=== PATIENT | female | born 1960 | race Caucasian/White ===

== ENCOUNTER → 2022-11-16 | Day surgery (SDC) | payer MEDICARE, OTHER ==
--- NOTE | 2022-11-24 08:56 | MM ---
Reason for Exam: Post Procedure Mammogram. Last screening mammogram was performed 1 month(s) ago. Patient History: Menarche at age 10. Breast cancer, right, age 38. Prior Study Comparison: 03/06/1998 Bilateral Screening Mammogram, [facility]. 03/17/1998 Right Special View Mammogram, [facility]. 10/22/1998 Right Special View Mammogram, [facility]. 10/30/1998 Right Diagnostic Ultrasound, [facility]. 06/22/1999 Right Special View Mammogram, [facility]. 04/08/2000 Bilateral Special View Mammogram, [facility]. 10/16/2018 Bilateral Diagnostic Mammogram, [facility]. 10/31/2018 Right Diagnostic Mammogram, [facility]. 10/15/2022 Bilateral Screening Mammogram, [facility]. Tissue Density: Right: There are scattered fibroglandular densities. Pathology Description: Location: 7 o'clock. Marker Left Behind. Needle Type: Mammotome Cores: 6 Skin Nicks: 1 Gauge: 13 The procedure of ultrasound guided core biopsy was explained to the patient. Benefits, alternatives, and risks were discussed. An informed consent was then obtained. A timeout was performed. The patient was placed in supine positioning for imaging and for the procedure. The overlying skin was prepped and draped in usual sterile fashion. Lidocaine was used as anesthetic into the skin and subcutaneous tissue up to area of concern in the right breast. A single small skin radha was made with surgical scalpel. Under ultrasound guidance, a 12-gauge vacuum assisted biopsy gun device was used to obtain 6 core samples of the 6:00 lesion. A biopsy clip was left in lesion. Hydromark core coil marker was placed. The second adjacent site at 7:00 position was biopsied. 4 core samples were obtained. A biopsy clip was left in lesion. Hydromark core or flight marker was placed. The patient tolerated the procedure well without any immediate complication. The patient was kept in the radiology department for short stay after the procedure and then discharged home in stable condition. Postprocedure mammogram: The patient was transferred to mammography for physician ordered post procedure mammogram for clip placement verification. Due to patient condition imaging of the clips was limited due to nondiagnostic. Impression: Successful ultrasound guided core biopsy of 2 areas of concern in the right breast, full pathology results to follow. Recommendations: 1. Recommendations are pending pathology results. Pathology Results: Result: Malignant, Invasive ductal carcinoma. A. RIGHT BREAST, SEVEN O'CLOCK, ULTRASOUND GUIDED NEEDLE CORE BIOPSY: Invasive poorly differentiated ductal carcinoma (Grade 3). See Surgical Pathology Cancer Case Summary. B. RIGHT BREAST, SIX O'CLOCK, ULTRASOUND GUIDED NEEDLE CORE BIOPSY: Invasive poorly differentiated ductal carcinoma (Grade 3) with associated scar and calcifications. See Surgical Pathology Cancer Case Summary. Pathology Description: Location: 6 o'clock. Marker Left Behind. Needle Type: Mammotome Cores: 4 Gauge: 13 Overall Assessment: Malignant Assessment: MG diagnostic mammo RT wo CAD - Right: Known biopsy proven malignancy, BI-RAD 6. Management: Surgical Consultation of the right breast. Electronically signed and approved by: John Gutiérrez D.O. Radiologis
== END ==
LOC: RADUSWWP 12:53
PROVIDERS: ATTEND Surgery
DX: D05.11 Intraductal carcinoma in situ of right breast (principal)
CPT/HCPCS: 88305; 88342; 88341; 77065; 19083; 19084; A4648

== ENCOUNTER → 2022-11-25 | Outpatient (CLI) | payer MEDICARE, OTHER ==
[2022-11-25 14:38] VITALS: BP 105/59; PULSE 79; RESP 18; TEMP 97.7
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
== END ==
LOC: WWCWWP 14:01
PROVIDERS: ATTEND Surgery
DX: C50.911 Malignant neoplasm of unspecified site of right female breast (principal); E11.9 Type 2 diabetes mellitus without complications; E03.9 Hypothyroidism, unspecified; M13.80 Other specified arthritis, unspecified site; E78.5 Hyperlipidemia, unspecified; E07.9 Disorder of thyroid, unspecified; Z79.4 Long term (current) use of insulin

== ENCOUNTER → 2022-12-06 | Outpatient (CLI) | payer MEDICARE, OTHER ==
--- NOTE | 2022-12-06 18:25 | CA ---
Transthoracic Echo Report Name: Nedra Trejo Age: 62 Gender: F : 1960 Exam Date: 12/06/2022 14:00 Exam Location: [facility] Ht (in): 59 Wt (lb): 143 Ordering Physician: Lilliana Ledbetter MD Attending/Referring Phys: Target Setter Savana Salas RDCS Procedure CPT: Indications: Z01.818 pre chemo Cardiac Hx: Technical Quality: Good Contrast 1: Total Dose (mL): Contrast 2: Total Dose (mL): MEASUREMENTS (Male / Female) Normal Values 2D ECHO LV Diastolic Diameter PLAX 3.9 cm 4.2 - 5.9 / 3.9 - 5.3 cm LV Systolic Diameter PLAX 2.1 cm IVS Diastolic Thickness 1.0 cm 0.6 - 1.0 / 0.6 - 0.9 cm LVPW Diastolic Thickness 0.8 cm 0.6 - 1.0 / 0.6 - 0.9 cm LV Relative Wall Thickness 0.5 RV Internal Dim ED PLAX 2.7 cm LA Systolic Diameter LX 2.9 cm 3.0 - 4.0 / 2.7 - 3.8 cm LA Volume 31.9 cm??? 18 - 58 / 22 - 52 cm??? M-MODE Aortic Root Diameter MM 3.3 cm MV E Point Septal Separation 0.5 cm AV Cusp Separation MM 1.9 cm DOPPLER AV Peak Velocity 141.1 cm/s AV Peak Gradient 8.0 mmHg MV Area PHT 2.2 cm??? Mitral E Point Velocity 99.8 cm/s Mitral A Point Velocity 119.8 cm/s Mitral E to A Ratio 0.8 MV Deceleration Time 341.8 ms MV E' Velocity 7.1 cm/s Mitral E to MV E' Ratio 14.1 TR Peak Velocity 245.4 cm/s TR Peak Gradient 24.1 mmHg Right Ventricular Systolic Press 27.9 mmHg FINDINGS Left Ventricle Left ventricular ejection fraction is estimated at 55-60 %. Left ventricular cavity size normal. Left ventricular wall thickness normal. Normal left ventricular wall motion. Right Ventricle Normal right ventricular size and function. Right ventricular systolic pressure within normal limits. Right Atrium Normal right atrial size. Left Atrium Normal left atrial size. Mitral Valve Structurally normal mitral valve. No mitral stenosis, regurgitation or prolapse. Aortic Valve Trileaflet aortic valve. No aortic valve stenosis. Mild aortic regurgitation. Tricuspid Valve No tricuspid stenosis, regurgitation or prolapse. Structurally normal tricuspid valve. Pulmonic Valve Structurally normal pulmonic valve. Trace to mild pulmonic regurgitation. Pericardium Normal pericardium. No pericardial effusion. Aorta Normal size aortic root and proximal ascending aorta. CONCLUSIONS Normal LV size and systolic function Previewed by: Dr. Roland Mederos MD (Electronically Signed) Final Date: 06 December 2022 18:24
== END | disposition home or self-care (01) ==
LOC: RADECHMAIN 13:14
PROVIDERS: ATTEND Internal Medicine
DX: Z01.818 Encounter for other preprocedural examination (principal)
CPT/HCPCS: 93306

== ENCOUNTER → 2022-12-11 | Outpatient (CLI) | payer MEDICARE, OTHER ==
--- NOTE | 2022-12-13 08:12 | PE ---
EXAMINATION TYPE: PET CT fusion skull to thigh DATE OF EXAM: 12/11/2022 COMPARISON: NONE HISTORY: Newly diagnosed right-sided breast cancer. History of right-sided breast cancer 24 years ag o. TECHNIQUE: Following the intravenous administration of 10.21 mCi of F-18 FDG, whole body images are performed from the skull base to the midthigh. Images are reviewed on the computer in the coronal, a xial, and sagittal planes. Reconstructed rotating images are created on independent workstation and reviewed on the computer. A localization and attenuation correction CT is performed in conjunction with the PET scan. Blood glucose level equals 131. SCAN: Initial Scan FINDINGS: SKULL BASE AND NECK: Abnormal hypermetabolic uptake right shoulder level is along a muscle, inflamma tory change is suspected. No additional areas of abnormal hypermetabolic uptake. CHEST, MEDIASTINUM, AND HILAR REGION: Abnormal hypermetabolic uptake in the posterior right breast me asures approximately 2.0 x 1.3 cm axial image 88, max SUV is 6.02 . Mild hypermetabolic uptake more p osterior level with Max SUV 4.36 appears to correspond to muscle along inferior aspect of the scapula . Surgical clips towards the right axilla. No abnormal hypermetabolic uptake at this level. Surgical clip in the upper left breast. Single slightly prominent 7 mm left axillary lymph node axial image 72 . Max SUV less than 2.5. No additional areas of abnormal hypermetabolic uptake. ABDOMEN AND PELVIS: Nonspecific bowel uptake. No areas of abnormal hypermetabolic uptake. Normal excr etion. OSSEOUS STRUCTURES: No areas of abnormal hypermetabolic uptake. OTHER CT: Cholecystectomy clips are present. A few sigmoid colonic diverticula. IMPRESSION: Abnormal hypermetabolic uptake in the right breast mass 6:00 position corresponds to rece nt biopsy proven neoplasm. Possible multicentric involvement on recent ultrasound less well seen on P ET/CT. No additional areas of suspicious abnormal hypermetabolic uptake to suggest adenopathy or meta static disease.
== END | disposition home or self-care (01) ==
LOC: RADPETMAIN 13:38
PROVIDERS: ATTEND Surgery
DX: C50.511 Malignant neoplasm of lower-outer quadrant of right female breast (principal); N63.15 Unspecified lump in the right breast, overlapping quadrants; Z85.3 Personal history of malignant neoplasm of breast
CPT/HCPCS: 78815; A9552

== ENCOUNTER → 2022-12-16 | Outpatient (CLI) | payer MEDICARE, OTHER ==
--- NOTE | 2022-12-16 13:32 | P.PN ---
Progress Note - Text Progress Note Date: 12/16/22 The patient's case was presented at tumor board and it was requested that a punch biopsy be done of the skin in the right breast. Patient with comes in today for punch biopsy of the skin of the right breast. The area was prepped using alcohol. 1% lidocaine was used to anesthetize the area of concern. A #3 punch was utilized to obtain a punch biopsy. The area was cauterized using a silver nitrate stick. A 3-0 nylon suture was then placed. The patient tolerated the procedure without difficulty. There was no bleeding at the end of the case.
[2022-12-16 13:49] VITALS: BP 99/63; PULSE 87; RESP 17; TEMP 97.9
== END ==
LOC: WWCWWP 13:15
PROVIDERS: ATTEND Surgery
DX: Z85.3 Personal history of malignant neoplasm of breast (principal)

== ENCOUNTER → 2023-07-15 | Outpatient (CLI) | payer MEDICARE, OTHER ==
--- NOTE | 2023-07-15 15:01 | USB ---
Reason for Exam: Follow-up at short interval from prior study. Patient History: Menarche at age 10. Breast cancer, right, age 38. Breast cancer, right, age 62. 11/16/2022, Malignant US biopsy breast VAD RT on the right side. 11/16/2022, US biopsy breast add'l VAD RT on the Right side. Technique: Method: Whole Breast Handheld. Prior Study Comparison: 10/31/2018 Right Diagnostic Mammogram, [facility]. 10/15/2022 Bilateral Screening Mammogram, [facility]. 11/16/2022 Right MG diagnostic mammo RT wo CAD, [facility]. Findings: The whole breast of the right breast, the axilla of the right breast and the retroareolar of the right breast were scanned. Technique utilized:US breast complete RT Image; Ultrasound imaging of: Area of concern, retroareolar region and axilla. Heterogenous mass measuring 2.6 x 2.2 x 1.8 cm with heterogenous appearance at 7:00 to 3 cm from the nipple may be mildly increased in size compared to prior. Overall Assessment: Known biopsy proven malignancy, BI-RAD 6 Management: Surgical Consultation of the right breast. A clinical breast exam by your physician is recommended on an annual basis and results should be correlated with mammographic findings. This exam should not preclude additional follow-up of suspicious palpable abnormalities. Results were given to the patient verbally at the time of exam. Electronically signed and approved by: Porter Edgar DO
== END | disposition home or self-care (01) ==
LOC: RADUSWWP 14:02
PROVIDERS: ATTEND Internal Medicine
DX: C50.511 Malignant neoplasm of lower-outer quadrant of right female breast (principal); Z85.3 Personal history of malignant neoplasm of breast

== ENCOUNTER → 2023-11-03 | Outpatient (CLI) | payer MEDICARE, OTHER ==
--- NOTE | 2023-11-07 14:57 | PE ---
EXAMINATION TYPE: PET CT fusion skull to thigh DATE OF EXAM: 11/03/2023 COMPARISON: Prior PET/CT December 11, 2022 HISTORY: Right sided Breast cancer originally diagnosed 1998 with recurrence 2022 completed chemothe rapy May 2023 TECHNIQUE: Following the intravenous administration of 11.49 mCi of F-18 FDG, whole body images are performed from the skull base to the midthigh. Images are reviewed on the computer in the coronal, a xial, and sagittal planes. Reconstructed rotating images are created on independent workstation and reviewed on the computer. A localization and attenuation correction CT is performed in conjunction with the PET scan. Blood glucose level equals 144. SCAN: Subsequent Scan FINDINGS: SKULL BASE AND NECK: No new areas of abnormal hypermetabolic uptake. CHEST, MEDIASTINUM, AND HILAR REGION: Skin thickening and trabeculation in the right breast redemonst rated. Persistent abnormal hypermetabolic uptake posteriorly outer aspect has max SUV of 8.35 on axia l image 90 increased from 6.02 on prior study. Scattered surgical clips redemonstrated. There is new large right pleural effusion with mass effect and mediastinal shift. There is new hyperm etabolic pleural-based nodularity at several levels throughout the right thorax. Most prominent findi ngs in the medial right lung base near axial image 114, max SUV is 18.82. There are hypermetabolic ri ght hilar and thoracic lymph nodes. For reference max SUV right hilar region axial image 92 is 11.77. For reference max SUV posterior to the tyler on axial image 82 is 11.46. ABDOMEN AND PELVIS: Nonspecific more prominent bowel uptake on current study. Normal excretion is red emonstrated. No areas of abnormal hypermetabolic uptake. OSSEOUS STRUCTURES: Healing and nonunion lateral right upper and mid rib fractures are redemonstrated . No convincing evidence of new abnormal hypermetabolic uptake in osseous structures. OTHER CT: Cholecystectomy clips are redemonstrated. IMPRESSION: Neoplastic progression or worsening disease with new large malignant right pleural effusi on and pleural-based nodularity as detailed above.
== END | disposition home or self-care (01) ==
LOC: RADPETMAIN 12:45
PROVIDERS: ATTEND Internal Medicine
DX: C50.511 Malignant neoplasm of lower-outer quadrant of right female breast (principal); J91.0 Malignant pleural effusion; J94.8 Other specified pleural conditions
CPT/HCPCS: 78815; A9552

== ENCOUNTER 2023-11-06 13:38 | Inpatient (IN) | payer MEDICARE, OTHER ==
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
--- NOTE | 2023-11-06 15:23 | XR ---
EXAMINATION TYPE: XR chest 2V DATE OF EXAM: 11/06/2023 COMPARISON: 10/28/2023 HISTORY: 63 year-old female shortness of breath, chest pain, difficulty breathing TECHNIQUE: AP and lateral views FINDINGS: New whiteout of the right hemithorax with apparent mass effect and slight leftward cardiac mediastina l shift. Surgical clips right axilla. Left lung and pleural space appear clear. IMPRESSION: New complete white out of the right hemithorax likely on the basis of extensive metastatic disease in volvement of the right pleural space with concurrent very large effusion and likely underlying lung c ollapse. The large effusion demonstrates some mass effect with slight leftward shift
[2023-11-06 15:38] LABS: ALT 16 U/L (4-34); AST 26 U/L (14-36); African American GFR (CKD) 35 (>60 ml/min/1.73 sqM); Albumin 3.5 g/dL (3.5-5.0); Alkaline Phosphatase 83 U/L (38-126); Anion Gap 12 mmol/L; Blood Urea Nitrogen 31 mg/dL (7-17); Calcium 9.4 mg/dL (8.4-10.2); Carbon Dioxide 16 mmol/L (22-30); Chloride 107 mmol/L (98-107); Glucose 198 mg/dL (74-99); Magnesium 1.3 mg/dL (1.6-2.3); Non-African American GFR(CKD) 30 (>60 ml/min/1.73 sqM); Potassium 5.2 mmol/L (3.5-5.1); Sodium 135 mmol/L (137-145); Total Bilirubin 0.3 mg/dL (0.2-1.3)
[2023-11-06 15:39] LABS: Basophils % (A) 0 %; Eosinophils # (A) 0.1 k/uL (0-0.7); Eosinophils % (A) 1 %; HCT 44.7 % (34.0-46.0); HGB 14.3 gm/dL (11.4-16.0); Lymphocytes # (A) 1.9 k/uL (1.0-4.8); Lymphocytes % (A) 15 %; MCV 96.9 fL (80.0-100.0); Mean Platelet Volume 7.9; Monocytes # (A) 0.8 k/uL (0-1.0); Monocytes % (A) 6 %; Neutrophils # (A) 10.2 k/uL (1.3-7.7); Neutrophils % (A) 78 %; Platelet Count 493 k/uL (150-450); RBC 4.61 m/uL (3.80-5.40); RDW 12.5 % (11.5-15.5); WBC 13.1 k/uL (3.8-10.6)
[2023-11-06] MEDS: MAGNESIUM SULFATE-D5W PMX 1 GM in DEXTROSE/WATER 1 100ML.BAG IVPB SCH (16:47)
[2023-11-06] MEDS: SODIUM CHLORIDE 0.9% 1,000 ML IV ONE (16:47)
[2023-11-06 17:52] LABS: INR 0.8 (<1.2); Partial Thromboplastin Time 25.1 sec (22.0-30.0); Prothrombin Time 9.5 sec (10.0-12.5)
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
[2023-11-06] MEDS ORDERED: DEXTROSE 50% SYRINGE 50 ML IVP PRN ×2 (21:11)
[2023-11-06] MEDS ORDERED: Magnesium Replacement Protocol 1 EACH MISC MISCELLANE PRN (21:13)
[2023-11-06] MEDS: SODIUM ZIRCONIUM CYCLOSILICATE 10 GM PACKET PO ONE (22:42)
[2023-11-06 23:29] LABS: Glucose,Whole Blood 152 mg/dL (70-110)
[2023-11-06] MEDS: ACETAMINOPHEN TAB 500 MG TAB PO PRN (23:33)
[2023-11-07] MEDS: LEVOTHYROXINE 50 MCG TAB PO SCH (06:01)
[2023-11-07] MEDS: INSULIN ASPART (NovoLOG) 100 UNIT/ML VIAL SQ SCH (07:38)
[2023-11-07 07:39] LABS: Glucose,Whole Blood 139 mg/dL (70-110)
[2023-11-07] MEDS: CHOLECALCIFEROL 25 MCG (1000 IU) TABLET PO SCH (07:39)
[2023-11-07] MEDS: MAGNESIUM OXIDE 400 MG TAB PO SCH (07:39)
[2023-11-07] MEDS: MULTIVITAMINS, THERA 1 EACH TAB PO SCH (07:40)
[2023-11-07 08:04] LABS: Basophils # (A) 0.1 k/uL (0-0.2); Basophils % (A) 0 %; Eosinophils # (A) 0.1 k/uL (0-0.7); Eosinophils % (A) 1 %; HCT 40.3 % (34.0-46.0); HGB 12.7 gm/dL (11.4-16.0); Lymphocytes # (A) 3.4 k/uL (1.0-4.8); Lymphocytes % (A) 23 %; MCHC 31.6 g/dL (31.0-37.0); Mean Platelet Volume 6.9; Monocytes # (A) 0.9 k/uL (0-1.0); Monocytes % (A) 6 %; Neutrophils # (A) 9.8 k/uL (1.3-7.7); Neutrophils % (A) 68 %; Platelet Count 502 k/uL (150-450); RBC 4.11 m/uL (3.80-5.40); RDW 12.1 % (11.5-15.5); WBC 14.5 k/uL (3.8-10.6)
[2023-11-07 08:13] LABS: African American GFR (CKD) 42 (>60 ml/min/1.73 sqM); Anion Gap 12 mmol/L; Blood Urea Nitrogen 31 mg/dL (7-17); Calcium 8.9 mg/dL (8.4-10.2); Carbon Dioxide 12 mmol/L (22-30); Chloride 107 mmol/L (98-107); Glucose 150 mg/dL (74-99); Magnesium 1.8 mg/dL (1.6-2.3); Non-African American GFR(CKD) 36 (>60 ml/min/1.73 sqM); Potassium 4.7 mmol/L (3.5-5.1); Sodium 131 mmol/L (137-145)
[2023-11-07] MEDS: MAGNESIUM SULFATE-D5W PMX 1 GM in DEXTROSE/WATER 1 100ML.BAG IVPB SCH (08:26)
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
[2023-11-07] MEDS: traMADol 50 MG TAB PO SCH (08:37)
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
[2023-11-07] MEDS ORDERED: traMADol 50 MG TAB PO SCH (09:00)
[2023-11-07 12:17] LABS: Glucose,Whole Blood 140 mg/dL (70-110)
[2023-11-07] MEDS: traMADol 50 MG TAB PO PRN (13:31)
[2023-11-07] MEDS: LACTATED RINGERS 1,000 ML IV SCH (13:41)
--- NOTE | 2023-11-07 14:13 | P.PN ---
Subjective Progress Note Date: 11/07/23 This is a 63-year-old female with history of current right-sided pleural effusion, felt to be malignant unless proven otherwise since the patient is known to have history of metastatic breast cancer, patient had recent thoracentesis done by Dr. Johnson on 10/27/2023, 2200 mL of turbid colored fluid was removed from the right pleural space, pleural effusion was exudative in nature with significantly elevated protein and significantly elevated LDH of 672 however the cytology came back negative and the pleural effusion. Nonetheless I believe the fluid is considered malignant unless proven otherwise for her thoracentesis was done basically less than 12 days ago, and the patient is now back in the ER with complete opacification of the right lung and contralateral shift of the trachea consistent with recurrent large right-sided pleural effusion, I saw the patient in the ER, discussed with the patient the option of thoracentesis also discussed the option of Pleurx catheter placement and I believe the second option is the best option at this point unless the patient develops worsening shortness of breath and needs immediate thoracentesis. Patient is agreeable to have consultation with thoracic surgery for possible Pleurx catheter placement in the next 24 to 48 hours. Otherwise patient could be considered for thoracentesis. Symptoms jackson, patient has some shortness of breath, some cough, no fever, no chills, no hemoptysis and no chest pain. 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 Patient presented again with a new diagnosis of invasive ductal carcinoma of the right breast and biopsy showed grade 3 invasive ductal carcinoma recently punch biopsy of skin lesion was done and it showed invasive carcinoma/breast cancer. Last PET scan on 12/12/2022 showed abnormal metabolic uptake in the right breast corresponding with breast cancer. The patient is seen today November 07, 2023 in follow-up in the emergency department. She is currently sitting up on a stretcher. Awake and alert in no acute distress. She is dyspneic with conversation. Dyspneic with minimal exertion. She is maintaining O2 saturations in the 90s on room air. She is afebrile. Hemodynamically stable. White count 14.5. Hemoglobin 12.7. Platelets 502. Sodium 131. Potassium 4.7. Bicarb 12. BUN 31. Creatinine 1.50. Glucose 150. She has lactated Ringer's at O. Objective - Vital Signs Vital signs: Vital Signs Temp 97.7 F 11/07/23 05:40 Pulse 110 H 11/07/23 13:32 Resp 20 11/07/23 13:32 BP 120/77 11/07/23 13:32 Pulse Ox 96 11/07/23 13:32 FiO2 Intake & Output 11/06/23 11/07/23 11/07/23 18:59 06:59 18:59 Weight 58.967 kg - Exam GENERAL EXAM: Alert, pleasant 63-year-old female, on room air, fairly comfortable in no apparent distress. HEAD: Normocephalic. EYES: Normal reaction of pupils, equal size. NOSE: Clear with pink turbinates. THROAT: No erythema or exudates. NECK: No masses, no JVD. CHEST: No chest wall deformity. LUNGS: Equal air entry with diminished breath sounds over the right lung. CVS: S1 and S2 normal with no audible murmur, regular rhythm. ABDOMEN: No hepatosplenomegaly, normal bowel sounds, no guarding or rigidity. SPINE: No scoliosis or deformity SKIN: No rashes CENTRAL NERVOUS SYSTEM: No focal deficits, tone is normal in all 4 extremities. EXTREMITIES: There is no peripheral edema. No clubbing, no cyanosis. Peripheral pulses are intact. - Labs CBC & Chem 7: 11/07/23 07:50 11/07/23 07:50 Labs: Abnormal Lab Results - Last 24 Hours (Table) 11/06/23 11/06/23 11/06/23 Range/Units 15:03 15:03 17:30 WBC 13.1 H (3.8-10.6) k/uL Plt Count 493 H (150-450) k/uL Neutrophils # 10.2 H (1.3-7.7) k/uL PT 9.5 L (10.0-12.5) sec Sodium 135 L (137-145) mmol/L Potassium 5.2 H (3.5-5.1) mmol/L Carbon Dioxide 16 L (22-30) mmol/L BUN 31 H (7-17) mg/dL Creatinine 1.76 H (0.52-1.04) mg/dL Glucose 198 H (74-99) mg/dL POC Glucose (mg/dL) (70-110) mg/dL Hemoglobin A1c (<=6.0) % Magnesium 1.3 L (1.6-2.3) mg/dL Total Protein 6.0 L (6.3-8.2) g/dL 11/06/23 11/07/23 11/07/23 Range/Units 23:27 07:38 07:50 WBC (3.8-10.6) k/uL Plt Count (150-450) k/uL Neutrophils # (1.3-7.7) k/uL PT (10.0-12.5) sec Sodium (137-145) mmol/L Potassium (3.5-5.1) mmol/L Carbon Dioxide (22-30) mmol/L BUN (7-17) mg/dL Creatinine (0.52-1.04) mg/dL Glucose (74-99) mg/dL POC Glucose (mg/dL) 152 H 139 H (70-110) mg/dL Hemoglobin A1c 6.2 H (<=6.0) % Magnesium (1.6-2.3) mg/dL Total Protein (6.3-8.2) g/dL 11/07/23 11/07/23 11/07/23 Range/Units 07:50 07:50 12:15 WBC 14.5 H (3.8-10.6) k/uL Plt Count 502 H (150-450) k/uL Neutrophils # 9.8 H (1.3-7.7) k/uL PT (10.0-12.5) sec Sodium 131 L (137-145) mmol/L Potassium (3.5-5.1) mmol/L Carbon Dioxide 12 L (22-30) mmol/L BUN 31 H (7-17) mg/dL Creatinine 1.50 H (0.52-1.04) mg/dL Glucose 150 H (74-99) mg/dL POC Glucose (mg/dL) 140 H (70-110) mg/dL Hemoglobin A1c (<=6.0) % Magnesium (1.6-2.3) mg/dL Total Protein (6.3-8.2) g/dL Assessment and Plan Assessment: Recurrent right-sided exudative pleural effusion, considered malignant unless proven otherwise, considering the clinical history and this is most likely secondary to metastatic breast cancer Shortness of breath secondary to above however the patient is on room air History of invasive ductal carcinoma of the breast initial diagnosis back in 1998 patient had subsequent tumor recurrence and punch biopsy of the skin confirming invasive ductal carcinoma of the breast Type 2 diabetes maintained on insulin Benign essential hypertension history of hypothyroidism Dyslipidemia Plan: The patient was seen and evaluated Chest x-ray and labs reviewed Currently stable and on room air Plan is for Pleurx catheter placement tomorrow We will continue to follow I have personally seen and examined the patient, performed the documentation and the assessment and plan as written. Number of minutes spent on the visit: 10.
[2023-11-07 16:48] LABS: Glucose,Whole Blood 151 mg/dL (70-110)
[2023-11-07] MEDS: PRAVASTATIN SODIUM 40 MG TAB PO SCH (16:57)
[2023-11-07 20:59] LABS: Glucose,Whole Blood 281 mg/dL (70-110)
[2023-11-07] MEDS: INSULIN DETEMIR (LEVEMIR) 100 UNIT/ML SYR SQ SCH (21:33)
[2023-11-08] MEDS: ZOLPIDEM 5 MG TAB PO PRN (01:19)
[2023-11-08 05:53] LABS: Glucose,Whole Blood 121 mg/dL (70-110)
[2023-11-08] MEDS ORDERED: HYDROmorphone 0.5 MG/0.5 ML SYRINGE IVP PRN (07:00)
[2023-11-08 08:17] LABS: HCT 38.3 % (34.0-46.0); HGB 12.2 gm/dL (11.4-16.0); MCH 31.1 pg (25.0-35.0); MCHC 31.8 g/dL (31.0-37.0); Mean Platelet Volume 6.7; Platelet Count 452 k/uL (150-450); RDW 12.1 % (11.5-15.5); WBC 10.2 k/uL (3.8-10.6)
[2023-11-08 08:32] LABS: ALT 15 U/L (4-34); AST 23 U/L (14-36); African American GFR (CKD) 55 (>60 ml/min/1.73 sqM); Albumin 2.9 g/dL (3.5-5.0); Alkaline Phosphatase 73 U/L (38-126); Anion Gap 9 mmol/L; Blood Urea Nitrogen 29 mg/dL (7-17); Calcium 8.8 mg/dL (8.4-10.2); Carbon Dioxide 15 mmol/L (22-30); Chloride 105 mmol/L (98-107); Glucose 128 mg/dL (74-99); Non-African American GFR(CKD) 48 (>60 ml/min/1.73 sqM); Potassium 4.9 mmol/L (3.5-5.1); Sodium 129 mmol/L (137-145); Total Bilirubin 0.3 mg/dL (0.2-1.3); Total Protein 5.2 g/dL (6.3-8.2)
--- NOTE | 2023-11-08 08:35 | P.PN ---
Subjective Progress Note Date: 11/08/23 Principal diagnosis: Shortness of breath This is a 63-year-old female with a known history of metastatic breast cancer who recently had a thoracentesis done by Dr. Johnson on 10/27/2023 with 2200 mL of fluid removed from the right pleural space. Patient had increasing shortness of breath and presented to the emergency room for evaluation. Chest x-ray showed a right hemothorax with a large effusion on admission. Pulmonology and cardiothoracic surgeon have seen and evaluated patient who are recommending a Pleurx catheter be placed. Patient is currently n.p.o. and awaiting catheter placement today. She reports pain is controlled today and she was able to sleep last night. Heart rate remains in the low 100s. Objective - Vital Signs Vital signs: Vital Signs Temp 98.2 F 11/08/23 07:37 Pulse 104 H 11/08/23 07:38 Resp 15 11/08/23 07:38 BP 103/78 11/08/23 07:37 Pulse Ox 93 L 11/08/23 07:37 FiO2 Intake & Output 11/07/23 11/08/23 11/08/23 18:59 06:59 18:59 Weight 58.967 kg Other: Voiding Method Toilet Toilet - Constitutional General appearance: Present: cooperative, no acute distress - EENT Eyes: Present: PERRLA - Neck Neck: Present: normal ROM. Absent: lymphadenopathy, rigidity - Respiratory Respiratory: bilateral: diminished - Cardiovascular Rhythm: regular Heart sounds: normal: S1, S2 - Gastrointestinal General gastrointestinal: Present: soft. Absent: tenderness - Integumentary Integumentary: Present: normal, normal turgor - Psychiatric Psychiatric: Present: A&O x's 3, appropriate affect, intact judgment & insight - Labs CBC & Chem 7: 11/08/23 07:47 11/07/23 07:50 Labs: Abnormal Lab Results - Last 24 Hours (Table) 11/07/23 11/07/23 11/07/23 Range/Units 07:50 12:15 16:46 Plt Count (150-450) k/uL POC Glucose (mg/dL) 140 H 151 H (70-110) mg/dL Hemoglobin A1c 6.2 H (<=6.0) % 11/07/23 11/08/23 11/08/23 Range/Units 20:55 05:52 07:47 Plt Count 452 H (150-450) k/uL POC Glucose (mg/dL) 281 H 121 H (70-110) mg/dL Hemoglobin A1c (<=6.0) % Assessment and Plan (1) Pleural effusion Current Visit: Yes Status: Acute Code(s): J90 - PLEURAL EFFUSION, NOT EL SEWHERE CLASSIFIED SNOMED Code(s): 23463012 (2) Diabetes Current Visit: No Status: Acute Code(s): E11.9 - TYPE 2 DIABETES MELLITUS WITHOUT COMPLICATIONS SNOMED Code(s): 66332713 (3) Hypothyroidism (acquired) Current Visit: No Status: Acute Code(s): E03.9 - HYPOTHYROIDISM, UNSPECIFIED SNOMED Code(s): 734051702 (4) Hypomagnesemia Current Visit: Yes Status: Acute Code(s): E83.42 - HYPOMAGNESEMIA SNOMED Code(s): 509912903 (5) Hypertension Current Visit: Yes Status: Acute Code(s): I10 - ESSENTIAL (PRIMARY) HYPERTENSION SNOMED Code(s): 75089854 (6) Hyperlipemia Current Visit: Yes Status: Acute Code(s): E78.5 - HYPERLIPIDEMIA, UNSPECIFIED SNOMED Code(s): 39394315 (7) History of breast cancer Current Visit: Yes Status: Acute Code(s): Z85.3 - PERSONAL HISTORY OF MALIGNANT NEOPLASM OF BREAST SNOMED Code(s): 407217350 Plan: Await placement of Pleurx catheter CBC and CMP in the morning Patient seen and evaluated by nurse practitioner, physician in agreement with plan
[2023-11-08] MEDS: LACTATED RINGERS 1,000 ML IV SCH (10:04)
[2023-11-08 11:31] LABS: Glucose,Whole Blood 132 mg/dL (70-110)
--- NOTE | 2023-11-08 12:48 | P.PN ---
Subjective Progress Note Date: 11/08/23 Principal diagnosis: Shortness of breath. This is a 63-year-old female with history of current right-sided pleural effusion, felt to be malignant unless proven otherwise since the patient is known to have history of metastatic breast cancer, patient had recent thoracentesis done by Dr. Johnson on 10/27/2023, 2200 mL of turbid colored fluid was removed from the right pleural space, pleural effusion was exudative in nature with significantly elevated protein and significantly elevated LDH of 672 however the cytology came back negative and the pleural effusion. Nonetheless I believe the fluid is considered malignant unless proven otherwise for her thoracentesis was done basically less than 12 days ago, and the patient is now back in the ER with complete opacification of the right lung and contralateral shift of the trachea consistent with recurrent large right-sided pleural effusion, I saw the patient in the ER, discussed with the patient the option of thoracentesis also discussed the option of Pleurx catheter placement and I believe the second option is the best option at this point unless the patient develops worsening shortness of breath and needs immediate thoracentesis. Patient is agreeable to have consultation with thoracic surgery for possible Pleurx catheter placement in the next 24 to 48 hours. Otherwise patient could be considered for thoracentesis. Symptoms jackson, patient has some shortness of breath, some cough, no fever, no chills, no hemoptysis and no chest pain. 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 Patient presented again with a new diagnosis of invasive ductal carcinoma of the right breast and biopsy showed grade 3 invasive ductal carcinoma recently punch biopsy of skin lesion was done and it showed invasive carcinoma/breast cancer. Last PET scan on 12/12/2022 showed abnormal metabolic uptake in the right breast corresponding with breast cancer. The patient is seen today November 07, 2023 in follow-up in the emergency department. She is currently sitting up on a stretcher. Awake and alert in no acute distress. She is dyspneic with conversation. Dyspneic with minimal exertion. She is maintaining O2 saturations in the 90s on room air. She is afebrile. Hemodynamically stable. White count 14.5. Hemoglobin 12.7. Platelets 502. Sodium 131. Potassium 4.7. Bicarb 12. BUN 31. Creatinine 1.50. Glucose 150. She has lactated Ringer's at [facility]. Progress note dated November 08, 2023. Patient is seen today in room 366. The patient was seen a couple days ago, with shortness of breath in the emergency department, and the patient is apparently scheduled to have a Pleurx catheter placed on the right side later today. Dr. Anthony is going to do the procedure. The patient is on 2 L of oxygen by nasal cannula. She is not having any respiratory distress or difficulty. She is receiving lactated Ringer's at 20 cc an hour. Current laboratory data is white count 10.2, hemoglobin 12.2, hematocrit 38.3, and a platelet count of 452,000. Sodium 129, potassium 4.9, chlorides 105, CO2 15, anion gap 9, BUN 29, creatinine 1.20. Albumin is 2.9. Objective - Vital Signs Vital signs: Vital Signs Temp 98.2 F 11/08/23 07:37 Pulse 113 H 11/08/23 11:36 Resp 16 11/08/23 11:36 BP 115/68 11/08/23 11:36 Pulse Ox 96 11/08/23 11:36 FiO2 21 11/08/23 08:31 Intake & Output 11/07/23 11/08/23 11/08/23 18:59 06:59 18:59 Weight 58.967 kg Other: Voiding Method Toilet Toilet # Voids 1 - Exam No acute distress, oriented 3. No respiratory distress. The patient is lying on her right side. The patient is currently on 2 L. HEENT examination is grossly unremarkable. Mucous membranes are moist. No oral lesions. Neck supple. Full range of motion. No adenopathy thyromegaly or neck vein distention. Cardiovascular examination reveals regular rhythm rate. S1-S2 normal. No S3 or S4. No discernible murmur noted. Heart rate 100 bpm. Heart sounds are distant. Lungs reveal diminished breath sounds on the right. No wheezes rhonchi or crackles. Left lung is clear. Saturations are 96% on 2 L. Abdomen soft bowel sounds are heard. No masses or tenderness. Extremities are intact. No cyanosis clubbing or edema. Skin is without rash or lesion. Neurologic examination is brief but nonfocal. - Labs CBC & Chem 7: 11/08/23 07:47 11/08/23 07:47 Labs: Abnormal Lab Results - Last 24 Hours (Table) 11/07/23 11/07/23 11/08/23 Range/Units 16:46 20:55 05:52 Plt Count (150-450) k/uL Sodium (137-145) mmol/L Carbon Dioxide (22-30) mmol/L BUN (7-17) mg/dL Creatinine (0.52-1.04) mg/dL Glucose (74-99) mg/dL POC Glucose (mg/dL) 151 H 281 H 121 H (70-110) mg/dL Total Protein (6.3-8.2) g/dL Albumin (3.5-5.0) g/dL 11/08/23 11/08/23 11/08/23 Range/Units 07:47 07:47 11:30 Plt Count 452 H (150-450) k/uL Sodium 129 L (137-145) mmol/L Carbon Dioxide 15 L (22-30) mmol/L BUN 29 H (7-17) mg/dL Creatinine 1.20 H (0.52-1.04) mg/dL Glucose 128 H (74-99) mg/dL POC Glucose (mg/dL) 132 H (70-110) mg/dL Total Protein 5.2 L (6.3-8.2) g/dL Albumin 2.9 L (3.5-5.0) g/dL Assessment and Plan Assessment: Recurrent right-sided exudative pleural effusion, considered malignant unless proven otherwise, considering the clinical history and this is most likely secondary to metastatic breast cancer. Shortness of breath secondary to above. History of invasive ductal carcinoma of the breast initial diagnosis back in 1998 patient had subsequent tumor recurrence and punch biopsy of the skin confirming invasive ductal carcinoma of the breast. Type 2 diabetes maintained on insulin. Benign essential hypertension. History of hypothyroidism. Dyslipidemia. Plan: Plan dated November 08, 2023. The patient was seen by cardiothoracic surgery. The plan is to place a Pleurx catheter on the right side later today. Currently, the patient is on 2 L of oxygen. She is getting lactated Ringer's at 20 cc an hour. Labs, x-rays, and medications are reviewed. The patient is overall prognosis remains guarded. We will continue to follow the patient, and make recommendations along the way. Time with Patient: Less than 30
[2023-11-08 13:36] LABS: Glucose,Whole Blood 129 mg/dL (70-110)
[2023-11-08] MEDS: ONDANSETRON 4 MG/2 ML VIAL IVP ONE ×2 (13:39→16:50)
[2023-11-08] MEDS ORDERED: MIDAZOLAM 2 MG/2 ML VIAL ONE (14:28)
[2023-11-08] MEDS ORDERED: fentaNYL (PF) 50 MCG/ML 2 ML AMP ONE (14:28)
[2023-11-08] MEDS ORDERED: PROPOFOL 10 MG/ML 20 ML VIAL IV ONE (14:28)
[2023-11-08] MEDS ORDERED: KETAMINE HCL IN 0.9 % NACL 50 MG/5 ML SYRINGE ONE (14:28)
[2023-11-08] MEDS: SODIUM CHLORIDE 0.9% 50 ML with ceFAZolin 1,000 MG IV ONE (14:35)
[2023-11-08] MEDS: LIDOCAINE 1% INJ 10MG/ML (10 ML MDV) SQ ONE (14:48)
--- NOTE | 2023-11-08 15:26 | P.OP ---
Date of Procedure: 11/08/23 Preoperative Diagnosis: recurrent pleural effusion Postoperative Diagnosis: same Procedure(s) Performed: R sided pleurX insertion under flouroscopic guidance Implants: R PleurX Anesthesia: local Surgeon: Zi Anthony Estimated Blood Loss (ml): 10 Pathology: other (cytology from pleural fluid) Condition: stable Disposition: PACU Indications for Procedure: This patient is a 63 year-old F with breast cancer who was found to have a recurrent large right sided pleural effusion. She underwent multiple thoracentesis procedure and even though the cytology has been negative, there is concern for malignancy causing her recurrent effusion. PleurX was recommended. Operative Findings: 2500cc straw colored fluid removed. Description of Procedure: Patient was brought back to the operating room and sedated. Bump was placed under her right chest which was prepped and draped. Antibiotics were given. Needle was inserted with good return of serous fluid. This area was anethetized as well as an area anteriorly near the costal margin. Guidewire was advanced and confirmed with fluoroscopy. The catheter was tunneled from anterior to posterior and inserted via the peel away sheath. 2500cc of straw colored fluid was evacuated and sterile dressing applied.
[2023-11-08 16:09] LABS: Glucose,Whole Blood 114 mg/dL (70-110)
[2023-11-08 16:47] LABS: Glucose,Whole Blood 142 mg/dL (70-110)
[2023-11-08] MEDS: DEXAMETHASONE SOD PHOSPHATE 4 MG/ML 1 ML VIAL IV ONE (16:50)
--- NOTE | 2023-11-08 19:04 | FL ---
EXAMINATION TYPE: FL guidance operating room DATE OF EXAM: 11/08/2023 3:24 PM CLINICAL INDICATION:Female, 63 years old with history of PLEURX CATHETER; [facility] COMPARISON: None TECHNIQUE: FL guidance operating room Portable AP radiograph of the chest.. FINDINGS: Fluoroscopic spot view was obtained intraoperatively and saved to PACS. Fluoroscopy time 16.9 second s cumulative dose 2.09 milligray. Please refer to operative note for full details. IMPRESSION: Documentation of fluoroscopy.
[2023-11-08 20:42] LABS: Glucose,Whole Blood 156 mg/dL (70-110)
[2023-11-09 06:11] LABS: Glucose,Whole Blood 128 mg/dL (70-110)
--- NOTE | 2023-11-09 08:18 | P.PN ---
Subjective Progress Note Date: 11/09/23 Principal diagnosis: Status post Pleurx The patient is a 63-year-old white female send admitted for recurrent pleural effusion. History of remote breast cancer in 1998. She states significant fatigue. No chest pain cough is noted. Minor tachycardia today. She states no palpitations or anginal equivalent pain. No nausea, vomiting or diarrhea. Objective - Vital Signs Vital signs: Vital Signs Temp 98.1 F 11/08/23 19:51 Pulse 106 H 11/09/23 05:04 Resp 16 11/09/23 05:04 BP 97/60 11/09/23 05:04 Pulse Ox 92 L 11/09/23 05:04 FiO2 21 11/08/23 08:31 Intake & Output 11/08/23 11/09/23 11/09/23 18:59 06:59 18:59 Intake Total 990 120 Output Total 2 Balance 988 120 Intake: IV 750 Oral 240 120 Output: Estimated Blood Loss 2 Other: Voiding Method Toilet Toilet # Voids 1 1 - Constitutional General appearance: Present: average body habitus, no acute distress - EENT Eyes: Absent: abnormal pupil - Neck Neck: Absent: lymphadenopathy - Respiratory Respiratory: right: diminished - Cardiovascular Heart rate: 110 Rhythm: regular Abnormal Heart Sounds: Absent: systolic murmur, S3 Gallop - Gastrointestinal General gastrointestinal: Present: soft. Absent: tenderness - Labs CBC & Chem 7: 11/08/23 07:47 11/08/23 07:47 Labs: Abnormal Lab Results - Last 24 Hours (Table) 11/08/23 11/08/23 11/08/23 Range/Units 07:47 07:47 11:30 Plt Count 452 H (150-450) k/uL Sodium 129 L (137-145) mmol/L Carbon Dioxide 15 L (22-30) mmol/L BUN 29 H (7-17) mg/dL Creatinine 1.20 H (0.52-1.04) mg/dL Glucose 128 H (74-99) mg/dL POC Glucose (mg/dL) 132 H (70-110) mg/dL Total Protein 5.2 L (6.3-8.2) g/dL Albumin 2.9 L (3.5-5.0) g/dL 03/12/24 03/12/24 03/12/24 Range/Units 13:33 16:07 16:45 Plt Count (150-450) k/uL Sodium (137-145) mmol/L Carbon Dioxide (22-30) mmol/L BUN (7-17) mg/dL Creatinine (0.52-1.04) mg/dL Glucose (74-99) mg/dL POC Glucose (mg/dL) 129 H 114 H 142 H (70-110) mg/dL Total Protein (6.3-8.2) g/dL Albumin (3.5-5.0) g/dL 11/08/23 11/09/23 Range/Units 20:39 06:10 Plt Count (150-450) k/uL Sodium (137-145) mmol/L Carbon Dioxide (22-30) mmol/L BUN (7-17) mg/dL Creatinine (0.52-1.04) mg/dL Glucose (74-99) mg/dL POC Glucose (mg/dL) 156 H 128 H (70-110) mg/dL Total Protein (6.3-8.2) g/dL Albumin (3.5-5.0) g/dL Assessment and Plan (1) History of breast cancer Current Visit: Yes Status: Acute Code(s): Z85.3 - PERSONAL HISTORY OF MALIGNANT NEOPLASM OF BREAST SNOMED Code(s): 077206695 (2) Hyperlipemia Current Visit: Yes Status: Acute Code(s): E78.5 - HYPERLIPIDEMIA, UNSPECIFIED SNOMED Code(s): 57268007 (3) Hypertension Current Visit: Yes Status: Acute Code(s): I10 - ESSENTIAL (PRIMARY) HYPERTENSION SNOMED Code(s): 36887338 (4) Hypomagnesemia Current Visit: Yes Status: Acute Code(s): E83.42 - HYPOMAGNESEMIA SNOMED Code(s): 147934885 (5) Pleural effusion Current Visit: Yes Status: Acute Code(s): J90 - PLEURAL EFFUSION, NOT ELSEWHERE CLASSIFIED SNOMED Code(s): 92648775 Plan: Improving. Will DC with Pleurx catheter. Check CBC CMP and magnesium in the a.m. due to electrolyte and KARLY. Anticipate discharge in a.m. Prognosis is guarded
[2023-11-09 08:47] LABS: HCT 36.5 % (34.0-46.0); HGB 12.1 gm/dL (11.4-16.0); MCH 31.9 pg (25.0-35.0); MCHC 33.2 g/dL (31.0-37.0); MCV 96.2 fL (80.0-100.0); Mean Platelet Volume 7.2; Platelet Count 408 k/uL (150-450); RBC 3.79 m/uL (3.80-5.40); RDW 12.1 % (11.5-15.5); WBC 10.4 k/uL (3.8-10.6)
[2023-11-09 09:02] LABS: ALT 13 U/L (4-34); AST 22 U/L (14-36); African American GFR (CKD) 67 (>60 ml/min/1.73 sqM); Albumin 2.5 g/dL (3.5-5.0); Alkaline Phosphatase 73 U/L (38-126); Anion Gap 7 mmol/L; Blood Urea Nitrogen 24 mg/dL (7-17); Calcium 8.4 mg/dL (8.4-10.2); Carbon Dioxide 20 mmol/L (22-30); Chloride 103 mmol/L (98-107); Glucose 161 mg/dL (74-99); Non-African American GFR(CKD) 58 (>60 ml/min/1.73 sqM); Potassium 4.9 mmol/L (3.5-5.1); Sodium 130 mmol/L (137-145); Total Bilirubin 0.3 mg/dL (0.2-1.3); Total Protein 4.8 g/dL (6.3-8.2)
--- NOTE | 2023-11-09 11:12 | P.PN ---
Subjective Progress Note Date: 11/09/23 Principal diagnosis: Shortness of breath. This is a 63-year-old female with history of current right-sided pleural effusion, felt to be malignant unless proven otherwise since the patient is known to have history of metastatic breast cancer, patient had recent thoracentesis done by Dr. Johnson on 10/27/2023, 2200 mL of turbid colored fluid was removed from the right pleural space, pleural effusion was exudative in nature with significantly elevated protein and significantly elevated LDH of 672 however the cytology came back negative and the pleural effusion. Nonetheless I believe the fluid is considered malignant unless proven otherwise for her thoracentesis was done basically less than 12 days ago, and the patient is now back in the ER with complete opacification of the right lung and contralateral shift of the trachea consistent with recurrent large right-sided pleural effusion, I saw the patient in the ER, discussed with the patient the option of thoracentesis also discussed the option of Pleurx catheter placement and I believe the second option is the best option at this point unless the patient develops worsening shortness of breath and needs immediate thoracentesis. Patient is agreeable to have consultation with thoracic surgery for possible Pleurx catheter placement in the next 24 to 48 hours. Otherwise patient could be considered for thoracentesis. Symptoms jackson, patient has some shortness of breath, some cough, no fever, no chills, no hemoptysis and no chest pain. 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 Patient presented again with a new diagnosis of invasive ductal carcinoma of the right breast and biopsy showed grade 3 invasive ductal carcinoma recently punch biopsy of skin lesion was done and it showed invasive carcinoma/breast cancer. Last PET scan on 12/12/2022 showed abnormal metabolic uptake in the right breast corresponding with breast cancer. The patient is seen today November 07, 2023 in follow-up in the emergency department. She is currently sitting up on a stretcher. Awake and alert in no acute distress. She is dyspneic with conversation. Dyspneic with minimal exertion. She is maintaining O2 saturations in the 90s on room air. She is afebrile. Hemodynamically stable. White count 14.5. Hemoglobin 12.7. Platelets 502. Sodium 131. Potassium 4.7. Bicarb 12. BUN 31. Creatinine 1.50. Glucose 150. She has lactated Ringer's at [facility]. Progress note dated November 08, 2023. Patient is seen today in room 366. The patient was seen a couple days ago, with shortness of breath in the emergency department, and the patient is apparently scheduled to have a Pleurx catheter placed on the right side later today. Dr. Anthony is going to do the procedure. The patient is on 2 L of oxygen by nasal cannula. She is not having any respiratory distress or difficulty. She is receiving lactated Ringer's at 20 cc an hour. Current laboratory data is white count 10.2, hemoglobin 12.2, hematocrit 38.3, and a platelet count of 452,000. Sodium 129, potassium 4.9, chlorides 105, CO2 15, anion gap 9, BUN 29, creatinine 1.20. Albumin is 2.9. Progress note dated November 09, 2023. 63-year-old female seen today in room 366. The patient had a Pleurx catheter placed yesterday by Dr. Anthony. 2.5 L of fluid was drained from the right p leural space. The fluid was sent for cytologic evaluation. Her previous cytologies have been negative. The fluid has been an exudate in the past. Currently, she is on 2 L of oxygen. She is resting comfortably. Labs today include a white count of 10.4, hemoglobin 12.1, hematocrit 36.5, and a platelet count of 408,000. Sodium 130, potassium 4.9, chlorides 103, CO2 20, BUN 24, creatinine 1.02. The albumin is 2.5. Objective - Vital Signs Vital signs: Vital Signs Temp 98.1 F 11/09/23 08:00 Pulse 99 11/09/23 08:00 Resp 18 11/09/23 08:00 BP 94/59 11/09/23 08:00 Pulse Ox 93 L 11/09/23 08:51 FiO2 21 11/08/23 08:31 Intake & Output 11/08/23 11/09/23 11/09/23 18:59 06:59 18:59 Intake Total 990 120 180 Output Total 2 Balance 988 120 180 Intake: IV 750 Oral 240 120 180 Output: Estimated Blood Loss 2 Other: Voiding Method Toilet Toilet Toilet # Voids 1 1 - Exam No acute distress, oriented 3. No respiratory distress. The patient is lying on her right side. The patient is currently on 2 L. HEENT examination is grossly unremarkable. Mucous membranes are moist. No oral lesions. Neck supple. Full range of motion. No adenopathy thyromegaly or neck vein distention. Cardiovascular examination reveals regular rhythm rate. S1-S2 normal. No S3 or S4. No discernible murmur noted. Heart rate 97 bpm. Heart sounds are distant. Lungs reveal diminished breath sounds on the right, which are somewhat improved, following Pleurx catheter placement. No wheezes or crackles. 2 L saturation is 92%. Abdomen soft bowel sounds are heard. No masses or tenderness. Extremities are intact. No cyanosis clubbing or edema. Skin is without rash or lesion. Neurologic examination is brief but nonfocal. - Labs CBC & Chem 7: 11/09/23 08:02 11/09/23 08:02 Labs: Abnormal Lab Results - Last 24 Hours (Table) 11/08/23 11/08/23 11/08/23 Range/Units 11:30 13:33 16:07 RBC (3.80-5.40) m/uL Sodium (137-145) mmol/L Carbon Dioxide (22-30) mmol/L BUN (7-17) mg/dL Glucose (74-99) mg/dL POC Glucose (mg/dL) 132 H 129 H 114 H (70-110) mg/dL Total Protein (6.3-8.2) g/dL Albumin (3.5-5.0) g/dL 11/08/23 11/08/23 11/09/23 Range/Units 16:45 20:39 06:10 RBC (3.80-5.40) m/uL Sodium (137-145) mmol/L Carbon Dioxide (22-30) mmol/L BUN (7-17) mg/dL Glucose (74-99) mg/dL POC Glucose (mg/dL) 142 H 156 H 128 H (70-110) mg/dL Total Protein (6.3-8.2) g/dL Albumin (3.5-5.0) g/dL 03/13/24 03/13/24 Range/Units 08:02 08:02 RBC 3.79 L (3.80-5.40) m/uL Sodium 130 L (137-145) mmol/L Carbon Dioxide 20 L (22-30) mmol/L BUN 24 H (7-17) mg/dL Glucose 161 H (74-99) mg/dL POC Glucose (mg/dL) (70-110) mg/dL Total Protein 4.8 L (6.3-8.2) g/dL Albumin 2.5 L (3.5-5.0) g/dL Assessment and Plan Assessment: Recurrent right-sided exudative pleural effusion, considered malignant unless proven otherwise, considering the clinical history and this is most likely secondary to metastatic breast cancer. S/P Pleurx catheter placement, on the right side, November 08, 2023. Shortness of breath secondary to above. History of invasive ductal carcinoma of the breast initial diagnosis back in 1998 patient had subsequent tumor recurrence and punch biopsy of the skin confirming invasive ductal carcinoma of the breast. Type 2 diabetes maintained on insulin. Benign essential hypertension. History of hypothyroidism. Dyslipidemia. Plan: Plan dated November 08, 2023. The patient was seen by cardiothoracic surgery. The plan is to place a Pleurx catheter on the right side later today. Currently, the patient is on 2 L of oxygen. She is getting lactated Ringer's at 20 cc an hour. Labs, x-rays, and medications are reviewed. The patient is overall prognosis remains guarded. We will continue to follow the patient, and make recommendations along the way. Plan dated November 09, 2023. Dr. Anthony placed a right-sided Pleurx catheter yesterday, November 07. 2.5 L of fluid was removed from the right pleural space. Because of previous cytologies have been negative, the fluid was sent for further cytologic evaluation. Labs, x-rays, and medications are reviewed. The patient continues on 2 L of oxygen. She will be instructed on the proper usage of the Pleurx catheter, and then can be discharged. Time with Patient: Less than 30
[2023-11-09 11:40] LABS: Glucose,Whole Blood 207 mg/dL (70-110)
[2023-11-09 16:02] LABS: Glucose,Whole Blood 155 mg/dL (70-110)
[2023-11-09 20:29] LABS: Glucose,Whole Blood 248 mg/dL (70-110)
--- NOTE | 2023-11-09 20:55 | CDI ---
Documentation Clarification Form Date: 11/09/2023 08:49:25 PM From: Radha Bass RN, CCDS Phone: [phone] Admit Date: 11/06/2023 03:48:00 PM Patient Name: Nedra Trejo Visit Number: [id number] Discharge Date: ATTENTION: The Clinical Documentation Specialists (CDI) and [facility] Coding Staff appreciate your assistance in clarifying documentation. Please respond to the clarification below the line at the bottom and electronically sign. The CDI & [facility] Coding staff will review the response and follow-up if needed. Please note: Queries are made part of the Legal Health Record. If you have any questions, please contact the author of this message via ITS. Dr. Benoit Caicedo Your patient has an abnormal lab value BUN 31 Creatinine 1.76 on 11/06/23. Please clarify if there is an additional diagnosis and/or clinical significance related to this value. History/Risk Factors: Cancer, Diabetes Mellitus, Hyperlipidemia, Thyroid Disorder Clinical indicators: 63-year-old female present with short of breath and feels some pain on the right side of her chest. VS 101/70 124 24 98,3 96% RA 11/05 BUN 31 CR 1.76 GFR 30 11/06 BUN 31 CR 1.50 GFR 36 11/07 BUN 29 CR 1.20 GFR 48 Treatment: .9 NS @75 MLS/HR 11/05-11/05 Comprehensive Metabolic panel Daily Is there an additional diagnosis and/or clinical significance related to the above lab result/information? [ x ] Acute Kidney injury [ } Acute on chronic kidney disease (specify stage of CKD) [ ] Other, please specify [ ] Unable to determine (Template Last Revised: September 2020) MTDD
[2023-11-10 05:23] VITALS: RESP 16
[2023-11-10 05:44] LABS: Glucose,Whole Blood 111 mg/dL (70-110)
--- NOTE | 2023-11-10 07:38 | XR ---
EXAMINATION TYPE: XR chest 1V portable DATE OF EXAM: 11/10/2023 Comparison: 11/06/2023 Clinical History: 63-year-old female s/p Pleurx catheter placement Findings: Interval placement of right-sided Pleurx catheter which swings medially as it courses upwards but wit h tip at the lateral upper lung. Postsurgical change right breast and also right axilla. Extensive pl eural-parenchymal opacity remains throughout the right hemithorax with some improving aeration in the right upper lobe. Slight improvement in the degree of mass effect onto the cardiomediastinum. Impression: 1. Extensive pleural parenchymal opacity on the right with placement of Pleurx catheter. The catheter swings medially as it courses upwards with the tip located at the lateral right upper lung. 2. Aeration shows improvement within a portion of the upper lung. 3. Only slight improvement in the degree of mass effect onto the cardiomediastinum.
--- NOTE | 2023-11-10 08:39 | P.DS ---
Providers Date of admission: 11/06/23 15:48 Attending physician: Benoit Caicedo Consults: 11/06/23 15:46 Consult Physician Urgent Consulting Provider: Kaya Alarcon Consult Reason/Comments: Pleural effusion Do you want consulting provider notified?: Yes 11/06/23 20:01 Consult Physician Routine Consulting Provider: Zi Anthony Consult Reason/Comments: Pleurx catheter placement Do you want consulting provider notified?: Yes 11/10/23 03:01 Consult Physician Routine Consulting Provider: Brant Bird Consult Reason/Comments: sustained tachycardia >120 Do you want consulting provider notified?: Yes, Notify in am Primary care physician: Benoit Caicedo - Discharge Diagnosis(es) (1) Pleural effusion Current Visit: Yes Status: Acute (2) Diabetes Current Visit: No Status: Acute (3) Hypothyroidism (acquired) Current Visit: No Status: Acute (4) Hypomagnesemia Current Visit: Yes Status: Acute (5) Hypertension Current Visit: Yes Status: Acute (6) Hyperlipemia Current Visit: Yes Status: Acute (7) History of breast cancer Current Visit: Yes Status: Acute Hospital Course: This is a 63-year-old female who presented to the emergency room with complaints of increasing shortness of breath. Patient has a history of a thoracentesis at the end of September with Dr. Johnson in which 2200 mL of fluid removed cytology was negative. Chest x-ray on admission showed a right hemothorax with a large effusion. Patient had a Pleurx catheter placed with 2.5 L removed and fluid was sent for cytology. Patient's breathing is improved. However she still is mildly tachycardic and will have cardiology evaluation before discharge. Patient may be discharged if okay with cardiology. Patient seen and evaluated by nurse practitioner, physician in agreement with plan Plan - Discharge Summary New Discharge Prescriptions: Continue Levothyroxine Sodium [Synthroid] 50 mcg PO DAILY Semaglutide [Ozempic] 1 mg SQ CROW ramipriL 2.5 mg PO W/BRKFST Insulin Glargine,Hum.rec.anlog [Lantus Solostar Pen] 10 units SQ HS Magnesium Chloride [Mag64] 64 mg PO BID-W/MEALS Cholecalciferol (Vitamin D3) [Vitamin D3 (50 Mcg = 2000 Iu)] 50 mcg PO W/BRKFST Pravastatin Sodium [Pravachol] 40 mg PO W/SUPPER metFORMIN HCL 500 mg PO W/BRKFST Multivit-Min/Iron/Folic/Lutein [Centrum Silver Women Tablet] 1 tab PO W/BRKFST Acetaminophen [Tylenol Extra Strength] 1,000 mg PO Q6H PRN PRN Reason: Fever And/ Or Pain metFORMIN HCL 1,000 mg PO W/SUPPER Discharge Medication List Levothyroxine Sodium [Synthroid] 50 mcg PO DAILY 11/11/22 [History] Pravastatin Sodium [Pravachol] 40 mg PO W/SUPPER 11/11/22 [History] Semaglutide [Ozempic] 1 mg SQ CROW 11/11/22 [History] metFORMIN HCL 500 mg PO W/BRKFST 11/11/22 [History] Multivit-Min/Iron/Folic/Lutein [Centrum Silver Women Tablet] 1 tab PO W/BRKFST 11/25/22 [History] ramipriL 2.5 mg PO W/BRKFST 11/25/22 [History] Acetaminophen [Tylenol Extra Strength] 1,000 mg PO Q6H PRN 10/27/23 [History] Cholecalciferol (Vitamin D3) [Vitamin D3 (50 Mcg = 2000 Iu)] 50 mcg PO W/BRKFST 10/27/23 [History] Insulin Glargine,Hum.rec.anlog [Lantus Solostar Pen] 10 units SQ HS 10/27/23 [History] Magnesium Chloride [Mag64] 64 mg PO BID-W/MEALS 10/27/23 [History] metFORMIN HCL 1,000 mg PO W/SUPPER 10/27/23 [History] Follow up Appointment(s)/Referral(s): Benoit Caicedo MD [Primary Care Provider] - 1-2 days Zi Anthony MD [STAFF PHYSICIAN] - As Needed (Call office for pleurx removal once drainage is less than 50 mL for 3 times in a row) Activity/Diet/Wound Care/Special Instructions: Pleurx discharge instructions: 1. Home Care is ordered, they will obtain new bottles. 2. May shower after 24 hours, no tub baths/hot tubs. 3. Do not drain more than 1 liter or 1000 mL in 24 hours. 4. New drainage bottle needed with each drainage. 5. Drainage frequency dictated by patient symptoms, may be every day, every other day, weekly, or however often the patient is symptomatic. 6. Please notify [facility] or office if temperature >101F, excessive pain at insertion site, drainage consistency changes to cloudy or smells bad, catheter falls out, or anything else that concerns you. 7. Contact surgery office with weekly drainage amounts. May fax the amounts. 8. Once drainage is less than 50 mL three times in a row, notify the surgery office for possible removal. Surgery office: , fax Discharge Disposition: HOME SELF-CARE
[2023-11-10 09:26] VITALS: TEMP 98.1
[2023-11-10 09:48] LABS: HCT 36.9 % (34.0-46.0); HGB 11.5 gm/dL (11.4-16.0); MCH 30.1 pg (25.0-35.0); MCHC 31.3 g/dL (31.0-37.0); MCV 96.4 fL (80.0-100.0); Mean Platelet Volume 7.2; Platelet Count 380 k/uL (150-450); RBC 3.83 m/uL (3.80-5.40); RDW 12.5 % (11.5-15.5)
[2023-11-10 10:00] LABS: ALT 14 U/L (4-34); AST 23 U/L (14-36); African American GFR (CKD) 79 (>60 ml/min/1.73 sqM); Albumin 2.5 g/dL (3.5-5.0); Alkaline Phosphatase 67 U/L (38-126); Anion Gap 4 mmol/L; Blood Urea Nitrogen 22 mg/dL (7-17); Carbon Dioxide 25 mmol/L (22-30); Chloride 103 mmol/L (98-107); Glucose 207 mg/dL (74-99); Magnesium 1.3 mg/dL (1.6-2.3); Non-African American GFR(CKD) 68 (>60 ml/min/1.73 sqM); Potassium 4.7 mmol/L (3.5-5.1); Sodium 132 mmol/L (137-145); Total Bilirubin 0.3 mg/dL (0.2-1.3); Total Protein 4.7 g/dL (6.3-8.2)
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
--- NOTE | 2023-11-10 11:31 | P.PN ---
Subjective Progress Note Date: 11/10/23 Principal diagnosis: Shortness of breath. This is a 63-year-old female with history of current right-sided pleural effusion, felt to be malignant unless proven otherwise since the patient is known to have history of metastatic breast cancer, patient had recent thoracentesis done by Dr. Johnson on 10/27/2023, 2200 mL of turbid colored fluid was removed from the right pleural space, pleural effusion was exudative in nature with significantly elevated protein and significantly elevated LDH of 672 however the cytology came back negative and the pleural effusion. Nonetheless I believe the fluid is considered malignant unless proven otherwise for her thoracentesis was done basically less than 12 days ago, and the patient is now back in the ER with complete opacification of the right lung and contralateral shift of the trachea consistent with recurrent large right-sided pleural effusion, I saw the patient in the ER, discussed with the patient the option of thoracentesis also discussed the option of Pleurx catheter placement and I believe the second option is the best option at this point unless the patient develops worsening shortness of breath and needs immediate thoracentesis. Patient is agreeable to have consultation with thoracic surgery for possible Pleurx catheter placement in the next 24 to 48 hours. Otherwise patient could be considered for thoracentesis. Symptoms jackson, patient has some shortness of breath, some cough, no fever, no chills, no hemoptysis and no chest pain. 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 Patient presented again with a new diagnosis of invasive ductal carcinoma of the right breast and biopsy showed grade 3 invasive ductal carcinoma recently punch biopsy of skin lesion was done and it showed invasive carcinoma/breast cancer. Last PET scan on 12/12/2022 showed abnormal metabolic uptake in the right breast corresponding with breast cancer. The patient is seen today November 07, 2023 in follow-up in the emergency department. She is currently sitting up on a stretcher. Awake and alert in no acute distress. She is dyspneic with conversation. Dyspneic with minimal exertion. She is maintaining O2 saturations in the 90s on room air. She is afebrile. Hemodynamically stable. White count 14.5. Hemoglobin 12.7. Platelets 502. Sodium 131. Potassium 4.7. Bicarb 12. BUN 31. Creatinine 1.50. Glucose 150. She has lactated Ringer's at [facility]. Progress note dated November 08, 2023. Patient is seen today in room 366. The patient was seen a couple days ago, with shortness of breath in the emergency department, and the patient is apparently scheduled to have a Pleurx catheter placed on the right side later today. Dr. Anthony is going to do the procedure. The patient is on 2 L of oxygen by nasal cannula. She is not having any respiratory distress or difficulty. She is receiving lactated Ringer's at 20 cc an hour. Current laboratory data is white count 10.2, hemoglobin 12.2, hematocrit 38.3, and a platelet count of 452,000. Sodium 129, potassium 4.9, chlorides 105, CO2 15, anion gap 9, BUN 29, creatinine 1.20. Albumin is 2.9. Progress note dated November 09, 2023. 63-year-old female seen today in room 366. The patient had a Pleurx catheter placed yesterday by Dr. Anthony. 2.5 L of fluid was drained from the right p leural space. The fluid was sent for cytologic evaluation. Her previous cytologies have been negative. The fluid has been an exudate in the past. Currently, she is on 2 L of oxygen. She is resting comfortably. Labs today include a white count of 10.4, hemoglobin 12.1, hematocrit 36.5, and a platelet count of 408,000. Sodium 130, potassium 4.9, chlorides 103, CO2 20, BUN 24, creatinine 1.02. The albumin is 2.5. Progress note dated November 10, 2023. 63-year-old female seen today in room 366. The patient had a Pleurx catheter placed by Dr. Anthony, and, the patient is apparently going to be discharged, may be later today. Her chest x-ray from today is reviewed, and shows increasing pleural effusion on the right. Currently, she is on 2 L by nasal cannula. The patient is not receiving any IV fluids. Labs today include a white count 10, hemoglobin 11.5, hematocrit 36.9, and a normal platelet count. Sodium 132, potassium 4.7, chlorides 103, CO2 25, BUN 22, and creatinine 0.89. Calcium 8. Magnesium 1.3. The patient's albumin is 2.5. Objective - Vital Signs Vital signs: Vital Signs Temp 98.1 F 11/10/23 08:00 Pulse 101 H 11/10/23 08:00 Resp 16 11/10/23 08:00 BP 109/70 11/10/23 08:00 Pulse Ox 91 L 11/10/23 08:00 FiO2 21 11/08/23 08:31 Intake & Output 11/09/23 11/10/23 11/10/23 18:59 06:59 18:59 Intake Total 540 360 Balance 540 360 Intake: Oral 540 360 Other: Voiding Method Toilet Toilet # Voids 2 2 - Exam No acute distress, oriented 3. No respiratory distress. The patient is lying on her right side. The patient is currently on 2 L. HEENT examination is grossly unremarkable. Mucous membranes are moist. No oral lesions. Neck supple. Full range of motion. No adenopathy thyromegaly or neck vein distention. Cardiovascular examination reveals regular rhythm rate. S1-S2 normal. No S3 or S4. No discernible murmur noted. Heart rate 101 bpm. Heart sounds are distant. Lungs reveal diminished breath sounds on the right, which are somewhat improved, following Pleurx catheter placement. No wheezes or crackles. 2 L saturation is 92%. Abdomen soft bowel sounds are heard. No masses or tenderness. Extremities are intact. No cyanosis clubbing or edema. Skin is without rash or lesion. Neurologic examination is brief but nonfocal. - Labs CBC & Chem 7: 11/10/23 09:13 11/10/23 09:13 Labs: Abnormal Lab Results - Last 24 Hours (Table) 11/09/23 11/09/23 11/09/23 Range/Units 11:38 16:00 20:27 Sodium (137-145) mmol/L BUN (7-17) mg/dL Glucose (74-99) mg/dL POC Glucose (mg/dL) 207 H 155 H 248 H (70-110) mg/dL Calcium (8.4-10.2) mg/dL Magnesium (1.6-2.3) mg/dL Total Protein (6.3-8.2) g/dL Albumin (3.5-5.0) g/dL 11/10/23 11/10/23 Range/Units 05:42 09:13 Sodium 132 L (137-145) mmol/L BUN 22 H (7-17) mg/dL Glucose 207 H (74-99) mg/dL POC Glucose (mg/dL) 111 H (70-110) mg/dL Calcium 8.0 L (8.4-10.2) mg/dL Magnesium 1.3 L (1.6-2.3) mg/dL Total Protein 4.7 L (6.3-8.2) g/dL Albumin 2.5 L (3.5-5.0) g/dL Assessment and Plan Assessment: Recurrent right-sided exudative pleural effusion, considered malignant unless proven otherwise, considering the clinical history and this is most likely secondary to metastatic breast cancer. S/P Pleurx catheter placement, on the right side, November 08, 2023. Shortness of breath secondary to above. History of invasive ductal carcinoma of the breast initial diagnosis back in 1998 patient had subsequent tumor recurrence and punch biopsy of the skin confirming invasive ductal carcinoma of the breast. Type 2 diabetes maintained on insulin. Benign essential hypertension. History of hypothyroidism. Dyslipidemia. Plan: Plan dated November 08, 2023. The patient was seen by cardiothoracic surgery. The plan is to place a Pleurx catheter on the right side later today. Currently, the patient is on 2 L of oxygen. She is getting lactated Ringer's at 20 cc an hour. Labs, x-rays, and medications are reviewed. The patient is overall prognosis remains guarded. We will continue to follow the patient, and make recommendations along the way. Plan dated November 09, 2023. Dr. Anthony placed a right-sided Pleurx catheter yesterday, November 07. 2.5 L of fluid was removed from the right pleural space. Because of previous cytologies have been negative, the fluid was sent for further cytologic evaluation. Labs, x-rays, and medications are reviewed. The patient continues on 2 L of oxygen. She will be instructed on the proper usage of the Pleurx catheter, and then can be discharged. Plan dated November 10, 2023. The patient is on 2 L of oxygen. Her breathing is improved. Her chest x-ray from today is reviewed. Labs, x-rays, and medications are reviewed. The patient is much less short of breath. The fluid that was removed, initially, by the surgeon, was sent for cytology. Currently, that fluid cytology is pending. We will continue to follow the patient, make recommendations along the way. Prognosis is guarded. Time with Patient: Less than 30
[2023-11-10 11:49] LABS: Glucose,Whole Blood 151 mg/dL (70-110)
[2023-11-10] MEDS: MAGNESIUM SULFATE-D5W PMX 1 GM in DEXTROSE/WATER 1 100ML.BAG IVPB SCH (13:01)
[2023-11-10 13:29] VITALS: BP 105/67; PULSE 112
--- NOTE | 2023-11-11 10:53 | CA ---
Transthoracic Echo Report Name: Nedra Trejo Age: 63 Gender: F : 1960 Exam Date: 11/10/2023 10:23 Exam Location: [facility] Ht (in): 60 Wt (lb): 130 Ordering Physician: Margareth López Attending/Referring Phys: [id number], Maribel Gemologist Kim De Los Santos RCS Procedure CPT: Indications: LVF Cardiac Hx: Technical Quality: Good Contrast 1: Total Dose (mL): Contrast 2: Total Dose (mL): MEASUREMENTS (Male / Female) Normal Values 2D ECHO LV Diastolic Diameter PLAX 3.5 cm 4.2 - 5.9 / 3.9 - 5.3 cm LV Systolic Diameter PLAX 2.5 cm IVS Diastolic Thickness 0.8 cm 0.6 - 1.0 / 0.6 - 0.9 cm LVPW Diastolic Thickness 0.6 cm 0.6 - 1.0 / 0.6 - 0.9 cm LV Relative Wall Thickness 0.4 RV Internal Dim ED PLAX 2.7 cm LVOT Diameter 1.8 cm LV Diastolic Volume MOD BP 59.7 cm??? 67 - 155 / 56 - 104 cm??? LV Systolic Volume MOD BP 21.6 cm??? 22 - 58 / 19 - 49 cm??? LV Ejection Fraction MOD BP 63.9 % >= 55 % LV Cardiac Index MOD BP 430.2 cm???/min???m??? LV Diastolic Volume MOD 4C 47.7 cm??? LV Systolic Volume MOD 4C 22.3 cm??? LV Ejection Fraction MOD 4C 53.1 % LV Cardiac Index MOD 4C 285.7 cm???/min???m??? LV Diastolic Length 4C 6.5 cm LV Systolic Length 4C 5.6 cm LV Diastolic Volume MOD 2C 65.1 cm??? LV Systolic Volume MOD 2C 20.4 cm??? LV Ejection Fraction MOD 2C 68.7 % LV Cardiac Index MOD 2C 504.7 cm???/min???m??? LV Diastolic Length 2C 7.5 cm LV Systolic Length 2C 5.7 cm LA Volume 12.6 cm??? 18 - 58 / 22 - 52 cm??? LA Volume Index 7.9 cm???/m??? 16 - 28 cm???/m??? Ascending Aorta Diameter 3.1 cm DOPPLER AV Peak Velocity 104.0 cm/s AV Peak Gradient 4.3 mmHg AV Mean Velocity 69.9 cm/s AV Mean Gradient 2.3 mmHg AV Velocity Time Integral 16.0 cm LVOT Peak Velocity 99.6 cm/s LVOT Peak Gradient 4.0 mmHg LVOT Velocity Time Integral 14.2 cm LVOT Stroke Volume 37.9 cm??? LVOT Stroke Volume Index 24.4 ml/m??? LVOT Cardiac Index 428.3 cm???/min???m??? AV Area Cont Eq vti 2.4 cm??? AV Area Cont Eq pk 2.6 cm??? TR Peak Velocity 241.4 cm/s TR Peak Gradient 23.3 mmHg Right Ventricular Systolic Press 33.3 mmHg PV Peak Velocity 85.2 cm/s PV Peak Gradient 2.9 mmHg FINDINGS Left Ventricle Left ventricular ejection fraction is estimated at 55-60 %. Left ventricular wall thickness normal. Left ventricular cavity size normal. No obvious regional wall motion abnormalities. Right Ventricle Normal right ventricular size and function. Right ventricular systolic pressure within normal limits. Right Atrium Normal right atrial size. Left Atrium Normal left atrial size. Mitral Valve Structurally normal mitral valve. No evidence for mitral valve prolapse. No mitral stenosis. No mitral regurgitation. Aortic Valve Trileaflet aortic valve. No aortic stenosis. No aortic regurgitation. Tricuspid Valve Structurally normal tricuspid valve. No tricuspid stenosis. Moderate tricuspid regurgitation. Pulmonic Valve Structurally normal pulmonic valve. No pulmonic stenosis. Trace pulmonic regurgitation. Pericardium No pericardial effusion. Left pleural effusion. Aorta Normal size aortic root and proximal ascending aorta. CONCLUSIONS Normal LV systolic function. The ejection fraction is 55-60% Dilated right ventricle with a normal function Moderate tricuspid regurgitation noted. The tricuspid valve leaflets are thickened. Previewed by: Dr. Everett Camarillo MD (Electronically Signed) Final Date: 11 November 2023 10:52
--- NOTE | 2023-11-11 20:10 | CDI ---
Documentation Clarification Form Date: 11/11/2023 07:59:14 PM From: Claudine Armendariz Phone: Admit Date: 11/06/2023 03:48:00 PM Patient Name: Nedra Trejo Visit Number: [id number] Discharge Date: 11/10/2023 05:59:00 PM ATTENTION: The Clinical Documentation Specialists (CDI) and [facility] Coding Staff appreciate your assistance in clarifying documentation. Please respond to the clarification below the line at the bottom and electronically sign. The CDI & [facility] Coding staff will review the response and follow-up if needed. Please note: Queries are made part of the Legal Health Record. If you have any questions, please contact the author of this message via ITS. Dr. Benoit Caicedo Your patient lab results of POC Glucose 281 per Progress Note 11/07. Please clarify if there is an additional diagnosis and/or clinical significance related to this result. History/Risk Factors: 63yo F, malignant pleural effusion DMII, hemothorax sp chest tube, KARLY, hypothyroidism, HTN, A Fib, hypomagnesemia, Hx breast Cx x2 Clinical indicators: Glucose: 11/05 198 11/06 139-198 11/07 121-281 A1C: 6.2 Treatment: maintained on insulin Home Medications :Semaglutide[Ozempic] 1 mg SQ; metformin HCL 500 mg PO; Insulin Glargine, Hum rec anlog 10 units SQ Is there an additional diagnosis and/or clinical significance related to the above lab results? [ x ] DMII with hyperglycemia [ ] Result is not clinically significant (no additional diagnosis) [ ] Other, please specify [ ] Unable to determine (Template Last Reviewed: September 2020) MTDD
--- NOTE | 2023-11-14 16:23 | CDI ---
Documentation Clarification Form Date: 11/14/2023 04:03:40 PM From: Gail Mark RN, CCDS Email: [email or web address] Admit Date: 11/06/2023 03:48:00 PM Patient Name: Nedra Trejo Visit Number: [id number] Discharge Date: 11/10/2023 05:59:00 PM ATTENTION: The Clinical Documentation Specialists (CDI) and [facility] Coding Staff appreciate your assistance in clarifying documentation. Please respond to the clarification below the line at the bottom and electronically sign. The CDI & [facility] Coding staff will review the response and follow-up if needed. Please note: Queries are made part of the Legal Health Record. If you have any questions, please contact the author of this message via ITS. Dr. Benoit Caicedo The patient had tachycardia, tachypnea, elevated white count and elevated Cr. Based on this information and the findings below, is there an additional diagnosis that is clinically appropriate for this patient? History/Risk Factors: metastatic breast cancer with recent thoracentesis. Presented with increasing shortness of breath. Admitted with pleural effusion. Clinical Indicators: 11/05-11/09 WBC: 13.1-14.5-10 11/05-11/09 Cr 1.76-1.50-1.20-0.89 11/05 HR 124-118, RR 24 11/09 HR 133-122 ED: "EKG shows sinus tachycardia." 11/06 Surgery consult: "Respirations even, nonlabored at rest, does appear tachypneic with any activity." 11/09 Cardiology consult: "Sinus tachycardia reactive to pleural effusion." Discharge summary: "sustained tachycardia >120." Treatment: s/p thoracentesis 11/07 with removal of 2500cc fluid; 0.9 NS @75mL/hr 11/05-11/06 Is there an additional diagnosis that is clinically appropriate for this patient? [ x ] Non-infectious SIRS causing KARLY [ ] Non-infectious SIRS not causing KARLY [ ] Non-infectious SIRS without organ dysfunction [ ] No additional diagnosis/not clinically significant [ ] Other, please specify [ ] Unable to determine SIRS Criteria: 2 or more of the following may indicate SIRS Temperature < 96.8F (36C) or > 101.0F (38.3C) Heart Rate > 90 bpm Respiratory Rate > 20 breaths/min or PaCO2 < 32 mmHg White Blood Cell Count > 12,000 or < 4,000 cells/mm3 or > 10% bands MTDD
== END 2023-11-10 17:59 | disposition home or self-care (01) | DRG 186 ==
LOC: EC 13:38 → 3SCARD 15:48
PROVIDERS: ADMIT Family Medicine; ATTEND Family Medicine
PROC: 0W9930Z Drainage of Right Pleural Cavity with Drainage Device, Percutaneous Approach (ICD-10-PCS; principal; 2023-11-08 14:45)
DX: J90 Pleural effusion, not elsewhere classified (principal); R65.11 Systemic inflammatory response syndrome (SIRS) of non-infectious origin with acute organ dysfunction; N17.9 Acute kidney failure, unspecified; J94.2 Hemothorax; I48.91 Unspecified atrial fibrillation; Z79.4 Long term (current) use of insulin; E11.65 Type 2 diabetes mellitus with hyperglycemia; E03.9 Hypothyroidism, unspecified; I10 Essential (primary) hypertension; E83.42 Hypomagnesemia; E78.5 Hyperlipidemia, unspecified; Z79.890 Hormone replacement therapy; Z79.84 Long term (current) use of oral hypoglycemic drugs; Z79.85 Long-term (current) use of injectable non-insulin antidiabetic drugs; Z92.3 Personal history of irradiation; Z79.899 Other long term (current) drug therapy; Z92.21 Personal history of antineoplastic chemotherapy; Z85.3 Personal history of malignant neoplasm of breast
CPT/HCPCS: 36415; 71045; 71046; 80048; 80053; 83036; 83605; 83735; 84443; 84484; 85025; 85027; 85610; 85730; 88108; 88305; 88341; 88342; 93005; 93306; 94760; 96361; 96365; 96366; 99285

== ENCOUNTER 2023-11-20 10:37 | Inpatient (IN) | payer MEDICARE, OTHER ==
[2023-11-20 11:36] LABS: Basophils % (A) 0 %; Eosinophils # (A) 0.2 k/uL (0-0.7); Eosinophils % (A) 2 %; HCT 32.5 % (34.0-46.0); HGB 10.8 gm/dL (11.4-16.0); Lymphocytes # (A) 1.6 k/uL (1.0-4.8); Lymphocytes % (A) 17 %; MCH 32.3 pg (25.0-35.0); MCHC 33.1 g/dL (31.0-37.0); MCV 97.7 fL (80.0-100.0); Mean Platelet Volume 7.3; Monocytes # (A) 0.7 k/uL (0-1.0); Monocytes % (A) 7 %; Neutrophils # (A) 6.8 k/uL (1.3-7.7); Neutrophils % (A) 72 %; Platelet Count 379 k/uL (150-450); RBC 3.33 m/uL (3.80-5.40); RDW 12.3 % (11.5-15.5); WBC 9.4 k/uL (3.8-10.6)
--- NOTE | 2023-11-20 11:37 | XR ---
EXAMINATION TYPE: XR chest 2V DATE OF EXAM: 11/20/2023 COMPARISON: 11/06/2023 HISTORY: Shortness of breath TECHNIQUE: Frontal and lateral views of the chest are obtained. FINDINGS: There is a large consolidative opacity of the right lung from the apex to the lung base. Some aerated right lung is seen medially in the upper and midlung zones. On the prior study, there was complete o pacification of the right hemithorax therefore there is an mild interval improvement in aeration at t he right lung. There is been interval placement of a right pleural drainage catheter the tip of which is in the righ t upper lung zone laterally. There are multiple metallic clips in the right axilla. The left lung is clear. The heart is normal in size. The pulmonary vasculature is not congested. IMPRESSION: 1. Large opacification of the right hemithorax but less than on the prior study when the entire right hemithorax was opacified. 2. Interval placement of a right-sided pleural drainage catheter tip which is in the right upper lung zone laterally. 3. No abnormality of the left lung or pleural space. 4. No cardiac enlargement or pulmonary vascular congestion
[2023-11-20 11:54] LABS: Partial Thromboplastin Time 28.3 sec (22.0-30.0); Prothrombin Time 10.7 sec (10.0-12.5)
[2023-11-20 12:26] LABS: ALT 13 U/L (4-34); African American GFR (CKD) >90 (>60 ml/min/1.73 sqM); Albumin 2.4 g/dL (3.5-5.0); Anion Gap 7 mmol/L; Blood Urea Nitrogen 15 mg/dL (7-17); Calcium 7.7 mg/dL (8.4-10.2); Carbon Dioxide 21 mmol/L (22-30); Chloride 108 mmol/L (98-107); Glucose 140 mg/dL (74-99); Non-African American GFR(CKD) >90 (>60 ml/min/1.73 sqM); Sodium 136 mmol/L (137-145); Total Bilirubin 0.5 mg/dL (0.2-1.3); Total Protein 4.9 g/dL (6.3-8.2)
[2023-11-20 12:34] LABS: NT-Pro-B-Type Natriuretic Pept 235 pg/mL
[2023-11-20 12:38] LABS: AST 34 U/L (14-36); Alkaline Phosphatase 44 U/L (38-126); Magnesium 1.1 mg/dL (1.6-2.3)
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
[2023-11-20] MEDS ORDERED: NALOXONE 0.4 MG/ML 1 ML VIAL IV PRN (14:29)
--- NOTE | 2023-11-20 14:58 | CT ---
EXAMINATION TYPE: CT chest wo con CT DLP: 198.9 mGycm, Automated exposure control for dose reduction was used. DATE OF EXAM: 11/20/2023 2:49 PM COMPARISON: PET/CT 11/03/2023. CLINICAL INDICATION:Female, 63 years old with history of Pleural effusion; PHH, Pleural effusion. TECHNIQUE: Multiple axial images were obtained through the chest. Sagittal and coronal reformats were created for review. Contrast used: (None if empty) Oral contrast used: (None if empty) FINDINGS: LUNGS/ PLEURA: There is redemonstration of pleural nodularity and a large right pleural effusion, not significantly changed compared to recent PET exam. Associated atelectasis is identified. Pulmonary drainage catheter seen terminating near the lateral aspect of the right lung apex. AIRWAY: Mild narrowing for mass effect upon the right lower lung bronchi. HEART: Size within normal limits. Trace pericardial effusion. MEDIASTINUM: Multiple enlarged mediastinal lymph nodes are again identified, again not significantly changed in the interval. VASCULATURE: No aortic aneurysm. MUSCULOSKELETAL: Multiple healing right-sided lateral rib fractures. SOFT TISSUES/LYMPH NODES: Soft tissue edema overlying the right thorax. LOWER NECK: No significant findings. UPPER ABDOMEN: No significant findings. IMPRESSION: 1. Stable right sided large pleural effusion and pleural nodularity as described on recent PET/CT. Dr perez catheter terminating in the right lung apex. 2. Mediastinal adenopathy, likely sequela of impression #1. 3. Small pericardial effusion. 4. Healing right rib fractures.
[2023-11-20 17:33] LABS: Glucose,Whole Blood 275 mg/dL (70-110)
[2023-11-20] MEDS: MAGNESIUM SULFATE-D5W PMX 1 GM in DEXTROSE/WATER 1 100ML.BAG IVPB SCH (17:58)
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
[2023-11-20 20:18] LABS: Glucose,Whole Blood 221 mg/dL (70-110)
[2023-11-20] MEDS: HYDROcodone/APAP 5-325MG 1 EACH TAB PO PRN (22:09)
[2023-11-20] MEDS: MELATONIN 5 MG TABLET PO PRN (22:10)
[2023-11-21 05:49] LABS: Glucose,Whole Blood 145 mg/dL (70-110)
[2023-11-21] MEDS: metFORMIN 500 MG TAB PO SCH ×2 (06:21→16:58)
[2023-11-21] MEDS: LEVOTHYROXINE 50 MCG TAB PO SCH (06:21)
[2023-11-21] MEDS: MAGNESIUM OXIDE 400 MG TAB PO SCH (06:22)
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
[2023-11-21 12:09] LABS: Glucose,Whole Blood 169 mg/dL (70-110)
--- NOTE | 2023-11-21 13:33 | P.PN ---
Subjective Progress Note Date: 11/21/23 I saw this patient in the emergency department for shortness of breath. The patient is known to have a loculated right-sided pleural effusion and the patient has undergone a Pleurx catheter insertion and the catheter was inserted by thoracic surgery on 11/08/2023. The patient was getting good output from the Pleurx catheter and output had dropped and the last drainage was around 4 days ago and output had dropped down to 300 cc. She came in for shortness of breath. I attempted to drain the pleural fluid in the emergency department through the Pleurx catheter and there was no output. Based on that, I made recommendations to obtain a CAT scan of the chest. The chest x-ray was reviewed and the patient has a loculated right-sided pleural effusion and Pleurx catheter is directed towards the lung apex. Note that the patient has recurrent right-sided pleural effusion that was thought to be malignant although this has not been proven. She has history of metastatic breast cancer. I initially drained this patient on 10/27/2019 for a total of 2.2 L of pleural fluid was aspirated from the right lung and this was exudative with an elevated LDH and the fluid cytology was negative. Subsequently, the patient Pleurx catheter. The pleural fluid was analyzed and was again negative for malignancy.. Nevertheless, the patient is known to have w metastatic disease. The patient is known to have hormone positive HER2/sarah right-sided breast cancer and she has undergone previous lumpectomy and axillary node dissection back in 1998 followed by radiation therapy and tamoxifen. She prese was subsequently found to have invasive ductal carcinoma of the right breast biopsy showing grade 3 invasive ductal carcinoma and diagnosed with established by a punch biopsy of the skin. PET scan that was done on 12/12/2022 showed an abnormal doubling activity in the breast corresponding to the cancer. She is also known to have diabetes mellitus type 2, hyperlipidemia and hypothyroidism. At this point in time, the patient is on room air oxygen. No fever. No chills. No cough or sputum production. Blood work is essentially within normal limits. proBNP level is not elevated. The patient is maintained on Lantus insulin on outpatient basis in addition to Ozempic. She is also on metformin. The patient is seen today November 21, 2023 in follow-up on the regular medical floor. She is currently sitting up in bed. Awake and alert in no acute distress. She is maintaining good O2 saturations in the 90s on room air. She has been afebrile. Hemodynamically stable. Denies any worsening shortness of breath, cough or congestion. CT scan of the chest revealed a stable right-sided large pleural effusion and pleural nodularity. Drainage catheter terminating in the right lung apex. Mediastinal adenopathy. Small pericardial effusion. Healing right rib fractures. Glucose 169. Objective - Vital Signs Vital signs: Vital Signs Temp 98.4 F 11/21/23 07:00 Pulse 91 11/21/23 07:00 Resp 18 11/21/23 07:00 BP 101/66 11/21/23 07:00 Pulse Ox 96 11/21/23 07:00 FiO2 Intake & Output 11/20/23 11/21/23 11/21/23 18:59 06:59 18:59 Intake Total 240 Balance 240 Weight 58.967 kg Intake: Oral 240 Other: # Voids 2 - Exam GENERAL EXAM: Alert, pleasant 63-year-old female, on room air, comfortable in no apparent distress. HEAD: Normocephalic. EYES: Normal reaction of pupils, equal size. NOSE: Clear with pink turbinates. THROAT: No erythema or exudates. NECK: No masses, no JVD. CHEST: No chest wall deformity. Right-sided Pleurx catheter in place. LUNGS: Equal air entry with crackles, diminished in the right base. CVS: S1 and S2 normal with no audible murmur, regular rhythm. ABDOMEN: No hepatosplenomegaly, normal bowel sounds, no guarding or rigidity. SPINE: No scoliosis or deformity SKIN: No rashes CENTRAL NERVOUS SYSTEM: No focal deficits, tone is normal in all 4 extremities. EXTREMITIES: There is no peripheral edema. No clubbing, no cyanosis. Peripheral pulses are intact. - Labs CBC & Chem 7: 11/20/23 11:26 11/20/23 12:05 Labs: Abnormal Lab Results - Last 24 Hours (Table) 11/20/23 11/20/23 11/21/23 Range/Units 17:32 20:16 05:48 POC Glucose (mg/dL) 275 H 221 H 145 H (70-110) mg/dL 11/21/23 Range/Units 12:08 POC Glucose (mg/dL) 169 H (70-110) mg/dL Assessment and Plan Assessment: Right-sided chest pain and shortness of breath secondary to loculated/recurrent right-sided exudative pleural effusion, negative pleural fluid cytology on 2 separate occasions. Nevertheless, considering the clinical history and this is most likely secondary to metastatic breast cancer. S/P Pleurx catheter placement, on the right side, November 08, 2023. Output from the Pleurx catheter has dropped despite the presence of residual loculated right-sided pleural effusion. Based on the chest x-ray finding, the proximal catheter is directed to the apex. Acute on chronic shortness of breath secondary to above. History of invasive ductal carcinoma of the breast initial diagnosis back in 1998 patient had subsequent tumor recurrence and punch biopsy of the skin confirming invasive ductal carcinoma of the breast. Type 2 diabetes maintained on insulin. Benign essential hypertension. History of hypothyroidism. Dyslipidemia Plan: The patient was seen and evaluated CAT scan, labs and medications reviewed Consult to cardiothoracic services May require alteplase/dornase infusion Currently stable and on room air We will continue to follow I have personally seen and examined the patient, performed the documentation and the assessment and plan as written. Number of minutes spent on the visit: 10.
[2023-11-21] MEDS: PRAVASTATIN SODIUM 40 MG TAB PO SCH (16:58)
[2023-11-21 17:33] LABS: Glucose,Whole Blood 146 mg/dL (70-110)
[2023-11-21 20:37] LABS: Glucose,Whole Blood 198 mg/dL (70-110)
[2023-11-22 05:59] LABS: Glucose,Whole Blood 162 mg/dL (70-110)
[2023-11-22] MEDS: ALTEPLASE 10 MG in SODIUM CHLORIDE 0.9% 50 ML IRRIGATION ONE (08:40)
[2023-11-22] MEDS: DORNASE ALFA 5 MG in SODIUM CHLORIDE 0.9% 50 ML IRRIGATION ONE (08:40)
--- NOTE | 2023-11-22 08:41 | P.PN ---
Subjective Progress Note Date: 11/22/23 Principal diagnosis: Shortness of breath This is a 63-year-old female who presented to the emergency department with complaints of shortness of breath. She had a Pleurx catheter inserted on 11/08/2023 and was having good output. Over the weekend patient reports output dropped and she became more short of breath. CT on admission showed a right sided pleural effusion with a Pleurx catheter directed towards the lung apex. Patient seen and evaluated by pulmonology and are awaiting cardiothoracic surgeon consult for possible flushing of the catheter. Patient is seen this bulmaro raing laying in bed comfortably. She remains on room air. Objective - Vital Signs Vital signs: Vital Signs Temp 98.9 F 11/22/23 01:06 Pulse 111 H 11/22/23 01:06 Resp 16 11/22/23 01:06 BP 98/61 11/22/23 01:06 Pulse Ox 90 L 11/22/23 01:06 FiO2 Intake & Output 11/21/23 11/22/23 11/22/23 18:59 06:59 18:59 Intake Total 598 Balance 598 Intake: Oral 598 Other: # Voids 1 1 - Constitutional General appearance: Present: cooperative, no acute distress - EENT Eyes: Present: PERRLA - Neck Neck: Present: normal ROM. Absent: lymphadenopathy, rigidity - Respiratory Respiratory: bilateral: diminished - Cardiovascular Rhythm: regular Heart sounds: normal: S1, S2 - Gastrointestinal General gastrointestinal: Present: soft. Absent: tenderness - Integumentary Integumentary: Present: normal, normal turgor - Psychiatric Psychiatric: Present: A&O x's 3, appropriate affect, intact judgment & insight - Labs CBC & Chem 7: 11/20/23 11:26 11/20/23 12:05 Labs: Abnormal Lab Results - Last 24 Hours (Table) 11/21/23 11/21/23 11/21/23 Range/Units 12:08 17:32 20:36 POC Glucose (mg/dL) 169 H 146 H 198 H (70-110) mg/dL 11/22/23 Range/Units 05:57 POC Glucose (mg/dL) 162 H (70-110) mg/dL Assessment and Plan (1) Pleural effusion Current Visit: Yes Status: Acute Code(s): J90 - PLEURAL EFFUSION, NOT ELSEWHERE CLASSIFIED SNOMED Code(s): 69549519 (2) Diabetes Current Visit: No Status: Acute Code(s): E11.9 - TYPE 2 DIABETES MELLITUS WITHOUT COMPLICATIONS SNOMED Code(s): 57947032 (3) History of breast cancer Current Visit: No Status: Acute Code(s): Z85.3 - PERSONAL HISTORY OF HERNANDEZ GNANT NEOPLASM OF BREAST SNOMED Code(s): 511474410 (4) Hyperlipemia Current Visit: No Status: Acute Code(s): E78.5 - HYPERLIPIDEMIA, UNSPECIFIED SNOMED Code(s): 27062956 (5) Hypertension Current Visit: No Status: Acute Code(s): I10 - ESSENTIAL (PRIMARY) HYPERTENSION SNOMED Code(s): 65986783 (6) Hypothyroidism (acquired) Current Visit: No Status: Acute Code(s): E03.9 - HYPOTHYROIDISM, UNSPECIFIED SNOMED Code(s): 774849072 Plan: Await recommendations cardiothoracic surgeon. Patient seen and evaluated by nurse practitioner, physician in agreement with plan
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
[2023-11-22 12:01] LABS: Glucose,Whole Blood 219 mg/dL (70-110)
--- NOTE | 2023-11-22 12:39 | P.PN ---
Subjective Progress Note Date: 11/22/23 I saw this patient in the emergency department for shortness of breath. The patient is known to have a loculated right-sided pleural effusion and the patient has undergone a Pleurx catheter insertion and the catheter was inserted by thoracic surgery on 11/08/2023. The patient was getting good output from the Pleurx catheter and output had dropped and the last drainage was around 4 days ago and output had dropped down to 300 cc. She came in for shortness of breath. I attempted to drain the pleural fluid in the emergency department through the Pleurx catheter and there was no output. Based on that, I made recommendations to obtain a CAT scan of the chest. The chest x-ray was reviewed and the patient has a loculated right-sided pleural effusion and Pleurx catheter is directed towards the lung apex. Note that the patient has recurrent right-sided pleural effusion that was thought to be malignant although this has not been proven. She has history of metastatic breast cancer. I initially drained this patient on 10/27/2019 for a total of 2.2 L of pleural fluid was aspirated from the right lung and this was exudative with an elevated LDH and the fluid cytology was negative. Subsequently, the patient Pleurx catheter. The pleural fluid was analyzed and was again negative for malignancy.. Nevertheless, the patient is known to have w metastatic disease. The patient is known to have hormone positive HER2/sarah right-sided breast cancer and she has undergone previous lumpectomy and axillary node dissection back in 1998 followed by radiation therapy and tamoxifen. She prese was subsequently found to have invasive ductal carcinoma of the right breast biopsy showing grade 3 invasive ductal carcinoma and diagnosed with established by a punch biopsy of the skin. PET scan that was done on 12/12/2022 showed an abnormal doubling activity in the breast corresponding to the cancer. She is also known to have diabetes mellitus type 2, hyperlipidemia and hypothyroidism. At this point in time, the patient is on room air oxygen. No fever. No chills. No cough or sputum production. Blood work is essentially within normal limits. proBNP level is not elevated. The patient is maintained on Lantus insulin on outpatient basis in addition to Ozempic. She is also on metformin. The patient is seen today November 21, 2023 in follow-up on the regular medical floor. She is currently sitting up in bed. Awake and alert in no acute distress. She is maintaining good O2 saturations in the 90s on room air. She has been afebrile. Hemodynamically stable. Denies any worsening shortness of breath, cough or congestion. CT scan of the chest revealed a stable right-sided large pleural effusion and pleural nodularity. Drainage catheter terminating in the right lung apex. Mediastinal adenopathy. Small pericardial effusion. Healing right rib fractures. Glucose 169. The patient is seen today November 22, 2023 in follow-up on the regular medical floor. She is awake and alert in no acute distress. Maintaining O2 saturations in the 90s on room air. Glucose 162. She did receive alteplase/dornase injection through the Pleurx catheter today and had over 1 L drained to the Pleur-evac which is connected to continuous low wall suction -20 cm of water. Follow-up chest x-ray for tomorrow. Objective - Vital Signs Vital signs: Vital Signs Temp 98.5 F 11/22/23 07:00 Pulse 105 H 11/22/23 07:00 Resp 16 11/22/23 07:00 BP 91/54 11/22/23 07:00 Pulse Ox 90 L 11/22/23 07:00 FiO2 Intake & Output 11/21/23 11/22/23 11/22/23 18:59 06:59 18:59 Intake Total 598 118 Balance 598 118 Intake: Oral 598 118 Other: # Voids 1 1 - Exam GENERAL EXAM: Alert, pleasant 63-year-old female, on room air, comfortable in no apparent distress. HEAD: Normocephalic. EYES: Normal reaction of pupils, equal size. NOSE: Clear with pink turbinates. THROAT: No erythema or exudates. NECK: No masses, no JVD. CHEST: No chest wall deformity. Right-sided Pleurx catheter in place to Pleur- evac and low continuous suction at -20 cm H2O. LUNGS: Equal air entry with crackles, diminished in the right base. CVS: S1 and S2 normal with no audible murmur, regular rhythm. ABDOMEN: No hepatosplenomegaly, normal bowel sounds, no guarding or rigidity. SPINE: No scoliosis or deformity SKIN: No rashes CENTRAL NERVOUS SYSTEM: No focal deficits, tone is normal in all 4 extremities. EXTREMITIES: There is no peripheral edema. No clubbing, no cyanosis. Periphe ral pulses are intact. - Labs CBC & Chem 7: 11/20/23 11:26 11/20/23 12:05 Labs: Abnormal Lab Results - Last 24 Hours (Table) 11/21/23 11/21/23 11/22/23 Range/Units 17:32 20:36 05:57 POC Glucose (mg/dL) 146 H 198 H 162 H (70-110) mg/dL 11/22/23 Range/Units 12:00 POC Glucose (mg/dL) 219 H (70-110) mg/dL Assessment and Plan Assessment: Right-sided chest pain and shortness of breath secondary to loculated/recurrent right-sided exudative pleural effusion, negative pleural fluid cytology on 2 separate occasions. Nevertheless, considering the clinical history and this is most likely secondary to metastatic breast cancer. S/P Pleurx catheter placement, on the right side, November 08, 2023. Output from the Pleurx catheter has dropped despite the presence of residual loculated right-sided pleural effusion. Based on the chest x-ray finding, the proximal catheter is directed to the apex. Received alteplase/dornase injection today November 22, 2023 with o miller 1 L removed thus far. Remains attached to Pleur-evac and low continuous wall suction. Acute on chronic shortness of breath secondary to above. Stable and on room air History of invasive ductal carcinoma of the breast initial diagnosis back in 1998 patient had subsequent tumor recurrence and punch biopsy of the skin confirming invasive ductal carcinoma of the breast. Type 2 diabetes maintained on insulin. Benign essential hypertension. History of hypothyroidism. Dyslipidemia Plan: The patient was seen and evaluated Labs and medications reviewed Received alteplase/dornase injection through Pleurx catheter 1 L of fluid returned thus far Continue to low continuous suction at -20 cm of water Currently stable and on room air Increase her activity as tolerated This patient was seen independently by the pulmonary nurse practitioner addressing pulmonary issues I have personally seen and examined the patient, performed the documentation and the assessment and plan as written. Number of minutes spent on the visit: 24.
[2023-11-22 17:10] LABS: Glucose,Whole Blood 265 mg/dL (70-110)
[2023-11-22] MEDS: ACETAMINOPHEN TAB 325 MG TAB PO PRN (19:51)
[2023-11-22 20:34] LABS: Glucose,Whole Blood 213 mg/dL (70-110)
[2023-11-23 06:10] LABS: Glucose,Whole Blood 186 mg/dL (70-110)
[2023-11-23] MEDS: ALTEPLASE 10 MG in SODIUM CHLORIDE 0.9% 50 ML IRRIGATION ONE (10:06)
[2023-11-23] MEDS: DORNASE ALFA 5 MG in SODIUM CHLORIDE 0.9% 50 ML IRRIGATION ONE (10:06)
--- NOTE | 2023-11-23 10:31 | P.PN ---
Subjective Progress Note Date: 11/23/23 Principal diagnosis: Recurrent large right-sided pleural effusion. History of recurrent right-sided pleural effusion status post right Pleurx catheter placement, breast cancer in 1998 status post lumpectomy and right axillary node dissection as well as radiation therapy and tamoxifen with recurrence of breast cancer status post chemotherapy with last dose in May 2023, hypertension, hyperlipidemia, hypothyroid, diabetes mellitus type II, lifetime non-smoker but exposed to secondhand smoke from her , edible marijuana use The patient was seen and examined this morning laying in bed on the sixth floor obs unit in no acute distress. She did have lytics instilled to her right-sided Pleurx catheter yesterday with evacuation of over 2 L fluid. States her breathing does feel a bit better since yesterday. Chest x-ray reviewed. Remains on 2 L nasal cannula with oxygen saturation in the high 90s. No other new concerns. Objective - Vital Signs Vital signs: Vital Signs Temp 98.6 F 11/23/23 07:00 Pulse 108 H 11/23/23 07:00 Resp 16 11/23/23 07:00 BP 93/55 11/23/23 07:00 Pulse Ox 97 11/23/23 09:44 FiO2 Intake & Output 11/22/23 11/23/23 11/23/23 18:59 06:59 18:59 Intake Total 354 240 Output Total 1999 Balance -1646 240 Intake: Oral 354 240 Output: Chest Tube Drainage 1999 Pleural Catheter Right 2000 Anterior Chest Other: # Voids 1 - Exam CONSTITUTIONAL: Appears comfortable, cooperative, no acute distress RESPIRATORY: Lungs sounds diminished on the right. Respirations even, nonlabored. Currently on 2 L nasal cannula with oxygen saturation 97%. Able to achieve 800 mL on incentive spirometry. Strong cough. CARDIOVASCULAR: S1, S2 present. Regular rate and rhythm. Palpable peripheral pulses bilaterally. No edema present. No calf pain or tenderness noted GASTROINTESTINAL: Abdomen soft, nontender, nondistended. Active bowel sounds present 4 quadrants. Tolerating diet. Positive bowel movement. GENITOURINARY: Continues to void INTEGUMENTARY: Skin is warm and dry NEUROLOGIC: Cranial nerves II through XII intact MUSKULOSKELETAL: Able to move all extremities, strength equal bilaterally, gait normal PSYCHIATRIC: Alert and oriented to person place and time, appropriate affect, intact judgment and insight INVASIVE LINES AND TUBES: Right pleurx catheter present and connected to wall suction, no air leaks present, 60 mL serosanguineous drainage overnight, 2000 mL in the last 24 hours - Allied health notes Allied health notes reviewed: nursing - Labs CBC & Chem 7: 11/20/23 11:26 11/20/23 12:05 Labs: Abnormal Lab Results - Last 24 Hours (Table) 11/22/23 11/22/23 11/22/23 Range/Units 12:00 17:08 20:33 POC Glucose (mg/dL) 219 H 265 H 213 H (70-110) mg/dL 11/23/23 Range/Units 06:08 POC Glucose (mg/dL) 186 H (70-110) mg/dL - Imaging and Cardiology Chest x-ray: image reviewed Assessment and Plan Assessment: Recurrent large right-sided loculated pleural effusion Shortness of breath, chest pain secondary to above History of recurrent right-sided pleural effusion status post right Pleurx catheter placement 11/08/23 History of breast cancer in 1998 status post lumpectomy and right axillary node dissection as well as radiation therapy and tamoxifen Recurrence of breast cancer status post chemotherapy with last dose in May 2023 Hypertension Hyperlipidemia Hypothyroid Diabetes mellitus type II Lifetime non-smoker but exposed to secondhand smoke from her Edible marijuana use Plan: Second dose of alteplase/dornase instilled to right-sided Pleurx catheter, will clamp for 1 to [address] Pleurx catheter atrium back to suction Will monitor daily chest x-rays Wean O2 as tolerated Encourage incentive spirometry use Increase activity as tolerated Pain control with current medication regimen Medical management of other comorbidities per internal medicine, pulmonology More recommendations to follow
--- NOTE | 2023-11-23 10:39 | XR ---
EXAMINATION TYPE: XR chest 1V portable DATE OF EXAM: 11/23/2023 7:02 AM CLINICAL INDICATION:Female, 63 years old with history of Right pleural effusion; [facility] COMPARISON: Chest radiographs from TECHNIQUE: XR chest 1V portable Frontal view of the chest. FINDINGS: Lungs/Pleura: Focal consolidation exists injection of a very large right pleural effusion. No pneumot horax. Pulmonary vascularity: Unremarkable. Heart/mediastinum: Cardiomediastinal silhouette is unremarkable. Musculoskeletal: No acute osseous pathology. Other findings: None Lines/Tubes: None IMPRESSION: Acute process in right lung including consolidation and atelectasis with very large right pleural eff usion
[2023-11-23] MEDS ORDERED: Magnesium Replacement Protocol 1 EACH MISC MISCELLANE PRN ×2 (11:05→13:24)
[2023-11-23] MEDS ORDERED: Potassium Replacement Protocol 1 EACH MISC MISCELLANE PRN (11:05)
[2023-11-23] MEDS ORDERED: DEXTROSE 50% SYRINGE 50 ML IVP PRN ×2 (11:06)
[2023-11-23 11:48] LABS: Glucose,Whole Blood 191 mg/dL (70-110)
[2023-11-23 12:48] LABS: African American GFR (CKD) 81 (>60 ml/min/1.73 sqM); Anion Gap 10 mmol/L; Blood Urea Nitrogen 21 mg/dL (7-17); Calcium 7.8 mg/dL (8.4-10.2); Carbon Dioxide 24 mmol/L (22-30); Chloride 100 mmol/L (98-107); Glucose 178 mg/dL (74-99); Magnesium 1.2 mg/dL (1.6-2.3); Non-African American GFR(CKD) 70 (>60 ml/min/1.73 sqM); Sodium 134 mmol/L (137-145)
[2023-11-23 12:54] LABS: Basophils # (A) 0.1 k/uL (0-0.2); Basophils % (A) 1 %; Eosinophils # (A) 0.1 k/uL (0-0.7); Eosinophils % (A) 1 %; HCT 34.6 % (34.0-46.0); HGB 10.9 gm/dL (11.4-16.0); Hypochromasia Marked; Lymphocytes # (A) 1.2 k/uL (1.0-4.8); Lymphocytes % (A) 10 %; MCH 32.5 pg (25.0-35.0); MCHC 31.5 g/dL (31.0-37.0); Macrocytosis Slight; Mean Platelet Volume 7.5; Monocytes # (A) 0.8 k/uL (0-1.0); Monocytes % (A) 7 %; Neutrophils # (A) 9.5 k/uL (1.3-7.7); Neutrophils % (A) 81 %; Platelet Count 419 k/uL (150-450); RBC 3.35 m/uL (3.80-5.40); WBC 11.8 k/uL (3.8-10.6)
[2023-11-23 12:55] LABS: Potassium 4.9 mmol/L (3.5-5.1)
--- NOTE | 2023-11-23 12:58 | P.PN ---
Subjective Progress Note Date: 11/23/23 I saw this patient in the emergency department for shortness of breath. The patient is known to have a loculated right-sided pleural effusion and the patient has undergone a Pleurx catheter insertion and the catheter was inserted by thoracic surgery on 11/08/2023. The patient was getting good output from the Pleurx catheter and output had dropped and the last drainage was around 4 days ago and output had dropped down to 300 cc. She came in for shortness of breath. I attempted to drain the pleural fluid in the emergency department through the Pleurx catheter and there was no output. Based on that, I made recommendations to obtain a CAT scan of the chest. The chest x-ray was reviewed and the patient has a loculated right-sided pleural effusion and Pleurx catheter is directed towards the lung apex. Note that the patient has recurrent right-sided pleural effusion that was thought to be malignant although this has not been proven. She has history of metastatic breast cancer. I initially drained this patient on 10/27/2019 for a total of 2.2 L of pleural fluid was aspirated from the right lung and this was exudative with an elevated LDH and the fluid cytology was negative. Subsequently, the patient Pleurx catheter. The pleural fluid was analyzed and was again negative for malignancy.. Nevertheless, the patient is known to have w metastatic disease. The patient is known to have hormone positive HER2/sarah right-sided breast cancer and she has undergone previous lumpectomy and axillary node dissection back in 1998 followed by radiation therapy and tamoxifen. She prese was subsequently found to have invasive ductal carcinoma of the right breast biopsy showing grade 3 invasive ductal carcinoma and diagnosed with established by a punch biopsy of the skin. PET scan that was done on 12/12/2022 showed an abnormal doubling activity in the breast corresponding to the cancer. She is also known to have diabetes mellitus type 2, hyperlipidemia and hypothyroidism. At this point in time, the patient is on room air oxygen. No fever. No chills. No cough or sputum production. Blood work is essentially within normal limits. proBNP level is not elevated. The patient is maintained on Lantus insulin on outpatient basis in addition to Ozempic. She is also on metformin. The patient is seen today November 21, 2023 in follow-up on the regular medical floor. She is currently sitting up in bed. Awake and alert in no acute distress. She is maintaining good O2 saturations in the 90s on room air. She has been afebrile. Hemodynamically stable. Denies any worsening shortness of breath, cough or congestion. CT scan of the chest revealed a stable right-sided large pleural effusion and pleural nodularity. Drainage catheter terminating in the right lung apex. Mediastinal adenopathy. Small pericardial effusion. Healing right rib fractures. Glucose 169. The patient is seen today November 22, 2023 in follow-up on the regular medical floor. She is awake and alert in no acute distress. Maintaining O2 saturations in the 90s on room air. Glucose 162. She did receive alteplase/dornase injection through the Pleurx catheter today and had over 1 L drained to the Pleur-evac which is connected to continuous low wall suction -20 cm of water. Follow-up chest x-ray for tomorrow. The patient is seen today November 23, 2023 in follow-up on the regular medical floor. She is currently sitting up in bed. Awake and alert in no acute distress. Breathing easier today compared to yesterday. She did have approximately 2 L of fluid out of her Pleurx catheter following the alt eplase/dornase infusion. Today's chest x-ray still shows significant effusion and loculation. Plan is for additional alteplase/dornase infusion per CT services again today. Follow-up chest x-ray tomorrow. Glucose 191. Objective - Vital Signs Vital signs: Vital Signs Temp 98.6 F 11/23/23 07:00 Pulse 108 H 11/23/23 07:00 Resp 16 11/23/23 08:00 BP 93/55 11/23/23 07:00 Pulse Ox 97 11/23/23 09:44 FiO2 Intake & Output 11/22/23 11/23/23 11/23/23 18:59 06:59 18:59 Intake Total 354 240 Output Total 1999 Balance -1646 240 Intake: Oral 354 240 Output: Chest Tube Drainage 1999 Pleural Catheter Right 1999 Anterior Chest Other: # Voids 1 - Exam GENERAL EXAM: Alert, 63-year-old female, sitting up in bed, on 2 L nasal cannula, in no apparent distress. HEAD: Normocephalic. EYES: Normal reaction of pupils, equal size. NOSE: Clear with pink turbinates. THROAT: No erythema or exudates. NECK: No masses, no JVD. CHEST: No chest wall deformity. Right-sided Pleurx catheter in place to Pleur- evac and low continuous suction at -20 cm H2O. LUNGS: Equal air entry with crackles, diminished in the right base. CVS: S1 and S2 normal with no audible murmur, regular rhythm. ABDOMEN: No hepatosplenomegaly, normal bowel sounds, no guarding or rigidity. SPINE: No scoliosis or deformity SKIN: No rashes CENTRAL NERVOUS SYSTEM: No focal deficits, tone is normal in all 4 extremities. EXTREMITIES: There is no peripheral edema. No clubbing, no cyanosis. Peripheral pulses are intact. - Labs CBC & Chem 7: 11/20/23 11:26 11/20/23 12:05 Labs: Abnormal Lab Results - Last 24 Hours (Table) 11/22/23 11/22/23 11/23/23 Range/Units 17:08 20:33 06:08 POC Glucose (mg/dL) 265 H 213 H 186 H (70-110) mg/dL 11/23/23 Range/Units 11:45 POC Glucose (mg/dL) 191 H (70-110) mg/dL Assessment and Plan Assessment: Right-sided chest pain and shortness of breath secondary to loculated/recurrent right-sided exudative pleural effusion, negative pleural fluid cytology on 2 separate occasions. Nevertheless, considering the clinical history and this is most likely secondary to metastatic breast cancer. S/P Pleurx catheter placement, on the right side, November 08, 2023. Output from the Pleurx catheter has dropped despite the presence of residual loculated right-sided pleural effusion. Based on the chest x-ray finding, the proximal catheter is directed to the apex. Received alteplase/dornase injection November 22, 2023 with over 2 L removed thus far. Remains attached to Pleur-evac and low continuous wall suction. This x-ray continues to show significant effusion and loculation. Plan is for alteplase/dornase again today November 23, 2023 Acute on chronic shortness of breath secondary to above History of invasive ductal carcinoma of the breast initial diagnosis back in 1998 patient had subsequent tumor recurrence and punch biopsy of the skin confirming invasive ductal carcinoma of the breast Type 2 diabetes maintained on insulin Benign essential hypertension History of hypothyroidism Dyslipidemia Plan: The patient was seen and evaluated Chest x-ray, Labs and medications reviewed Received alteplase/dornase injection again today Over 2 L of fluid returned thus far Continue to low continuous suction at -20 cm of water Increase her activity as tolerated This patient was seen independently by the pulmonary nurse practitioner addressing pulmonary issues I have personally seen and examined the patient, performed the documentation and the assessment and plan as written. Number of minutes spent on the visit: 22.
--- NOTE | 2023-11-23 13:30 | PN ---
PROGRESS NOTE DATE OF SERVICE: 11/23/2023 SUBJECTIVE: This is a 63-year-old woman, who was admitted with shortness of breath and as well as recurrent loculated, exudative pleural effusion, had a negative pleural cytology. The possibility of metastatic breast cancer is considered. The patient is seen by Cardiothoracic Surgery, and the Cardiothoracic Surgery is planning PleurX catheter drainage with alteplase and PleurX drainage. No chest pain. No palpitations. PAST MEDICAL HISTORY: Reviewed. REVIEW OF SYSTEMS: A 14-point review is negative as mentioned. CURRENT MEDICATIONS: Reviewed. PHYSICAL EXAMINATION: VITAL SIGNS: Pulse is 108, blood pressure is 93/54, and respirations 16. CHEST: A few scattered rhonchi and crackles. Breath sounds diminished on the right side. ABDOMEN: Soft. NERVOUS SYSTEM: Nonfocal. LABORATORY DATA: Glucose 186 and hemoglobin 10.8. Rest of the labs are noted. Magnesium 1.1. ASSESSMENT: 1. Recurrent large right-sided loculated effusion, exudative, possibly malignant on PleurX drainage. 2. Recurrent right-sided pleural effusion and recurrent breast cancer. 3. Hypertension. 4. Hyperlipidemia. 5. Diabetes mellitus, type 2. 6. Hypomagnesemia. RECOMMENDATIONS AND DISCUSSION: I recommend to continue current medications and symptomatic treatment. Otherwise, I can follow closely with Cardiothoracic Surgery. I would also recommend repeat labs and replace magnesium and potassium; otherwise, closely monitor. Prognosis is guarded. DVT prophylaxis. Further recommendations to follow. See orders for details. MMODL / IJN: [id number] /
[2023-11-23] MEDS: ONDANSETRON 4 MG/2 ML VIAL IVP PRN (13:49)
[2023-11-23] MEDS: INSULIN ASPART (NovoLOG) 100 UNIT/ML VIAL SQ SCH (14:00)
[2023-11-23] MEDS: HEPARIN SODIUM,PORCINE 5,000 UNIT/ML 1 ML VIAL SQ SCH (14:55)
[2023-11-23] MEDS: MAGNESIUM SULFATE-D5W PMX 1 GM in DEXTROSE/WATER 1 100ML.BAG IVPB SCH (14:56)
[2023-11-23 15:40] LABS: MCV 103.2 fL (80.0-100.0)
[2023-11-23] MEDS: PIPERACILLIN-TAZOBACTAM 3.375 GM in SODIUM CHLORIDE 0.9% 100 ML IVPB SCH (16:47)
[2023-11-23 16:48] LABS: Glucose,Whole Blood 231 mg/dL (70-110)
[2023-11-23 19:59] LABS: Glucose,Whole Blood 228 mg/dL (70-110)
[2023-11-23] MEDS: INSULIN DETEMIR (LEVEMIR) 100 UNIT/ML SYR SQ SCH (21:00)
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
[2023-11-24 06:13] LABS: Glucose,Whole Blood 162 mg/dL (70-110)
[2023-11-24] MEDS: MULTIVITAMINS, THERA 1 EACH TAB PO SCH (06:20)
[2023-11-24] MEDS: CHOLECALCIFEROL 25 MCG (1000 IU) TABLET PO SCH (06:20)
[2023-11-24] MEDS: DORNASE ALFA 5 MG in SODIUM CHLORIDE 0.9% 50 ML IRRIGATION ONE (09:14)
[2023-11-24] MEDS: ALTEPLASE 10 MG in SODIUM CHLORIDE 0.9% 50 ML IRRIGATION ONE (09:15)
--- NOTE | 2023-11-24 09:59 | P.PN ---
Subjective Progress Note Date: 11/24/23 Principal diagnosis: Recurrent large right-sided pleural effusion. History of recurrent right-sided pleural effusion status post right Pleurx catheter placement, breast cancer in 1998 status post lumpectomy and right axillary node dissection as well as radiation therapy and tamoxifen with recurrence of breast cancer status post chemotherapy with last dose in May 2023, hypertension, hyperlipidemia, hypothyroid, diabetes mellitus type II, lifetime non-smoker but exposed to secondhand smoke from her , edible marijuana use The patient was seen and examined this morning laying in bed on the cardiac stepdown unit in no acute distress. She did have second dose lytics instilled to her right-sided Pleurx catheter yesterday with evacuation of over 1400 mL fluid. States her breathing feels better. Chest x-ray reviewed. Remains on 2 L nasal cannula with oxygen saturation in the high 90s. She did develop tachycardia and fever yesterday, was transferred to [facility] and consultation was placed to infectious disease. She was placed on IV Zosyn with recommendations for sending pleural fluid for Gram stain and culture. No other new concerns. Objective - Vital Signs Vital signs: Vital Signs Temp 97.8 F 11/24/23 08:00 Pulse 104 H 11/24/23 08:00 Resp 16 11/24/23 08:00 BP 93/62 11/24/23 08:00 Pulse Ox 96 11/24/23 08:37 FiO2 Intake & Output 11/23/23 11/24/23 11/24/23 18:59 06:59 18:59 Intake Total 360 240 Output Total 710 Balance -350 240 Intake: Oral 360 240 Output: Chest Tube Drainage 710 Pleural Catheter Right 710 Anterior Chest Other: Voiding Method Toilet # Voids 1 - Exam CONSTITUTIONAL: Appears comfortable, cooperative, no acute distress RESPIRATORY: Lungs sounds diminished on the right but better than yesterday. Respirations even, nonlabored. Currently on 2 L nasal cannula with oxygen saturation 97%. Strong cough. CARDIOVASCULAR: S1, S2 present. Regular rate and rhythm, sinus rhythm on telemetry. Palpable peripheral pulses bilaterally. No edema present. No calf pain or tenderness noted GASTROINTESTINAL: Abdomen soft, nontender, nondistended. Active bowel sounds present 4 quadrants. Tolerating diet. Positive bowel movement. GENITOURINARY: Continues to void INTEGUMENTARY: Skin is warm and dry NEUROLOGIC: Cranial nerves II through XII intact MUSKULOSKELETAL: Able to move all extremities, strength equal bilaterally, gait normal PSYCHIATRIC: Alert and oriented to person place and time, appropriate affect, intact judgment and insight INVASIVE LINES AND TUBES: Right pleurx catheter present and connected to wall suction, no air leaks present, 1400 mL serosanguineous drainage in the last 24 hours - Allied health notes Allied health notes reviewed: nursing - Labs CBC & Chem 7: 11/23/23 11:54 11/23/23 11:54 Labs: Abnormal Lab Results - Last 24 Hours (Table) 11/23/23 11/23/23 11/23/23 Range/Units 11:45 11:54 11:54 WBC 11.8 H (3.8-10.6) k/uL RBC 3.35 L (3.80-5.40) m/uL Hgb 10.9 L (11.4-16.0) gm/dL MCV 103.2 H D (80.0-100.0) fL Neutrophils # 9.5 H (1.3-7.7) k/uL Sodium 134 L (137-145) mmol/L BUN 21 H (7-17) mg/dL Glucose 178 H (74-99) mg/dL POC Glucose (mg/dL) 191 H (70-110) mg/dL Calcium 7.8 L (8.4-10.2) mg/dL Magnesium 1.2 L (1.6-2.3) mg/dL 11/23/23 11/23/23 11/24/23 Range/Units 16:46 19:58 06:11 WBC (3.8-10.6) k/uL RBC (3.80-5.40) m/uL Hgb (11.4-16.0) gm/dL MCV (80.0-100.0) fL Neutrophils # (1.3-7.7) k/uL Sodium (137-145) mmol/L BUN (7-17) mg/dL Glucose (74-99) mg/dL POC Glucose (mg/dL) 231 H 228 H 162 H (70-110) mg/dL Calcium (8.4-10.2) mg/dL Magnesium (1.6-2.3) mg/dL - Imaging and Cardiology Chest x-ray: image reviewed Assessment and Plan Assessment: Recurrent large right-sided loculated pleural effusion Shortness of breath, chest pain secondary to above History of recurrent right-sided pleural effusion status post right Pleurx catheter placement 11/08/23 History of breast cancer in 1998 status post lumpectomy and right axillary node dissection as well as radiation therapy and tamoxifen Recurrence of breast cancer status post chemotherapy with last dose in May 2023 Hypertension Hyperlipidemia Hypothyroid Diabetes mellitus type II Lifetime non-smoker but exposed to secondhand smoke from her Edible marijuana use Fever, tachycardia Plan: Third dose of alteplase/dornase instilled to right-sided Pleurx catheter, will clamp for 1 to 2 hours, will drain into Pleurx bottle and send for Gram stain and culture per ID recommendations, then will place Pleurx catheter atrium back to suction Will monitor daily chest x-rays Wean O2 as tolerated Encourage incentive spirometry use Increase activity as tolerated Pain control with current medication regimen Medical management of other comorbidities per internal medicine, pulmonology More recommendations to follow
[2023-11-24 10:34] LABS: Basophils % (A) 0 %; Eosinophils % (A) 1 %; HCT 28.4 % (34.0-46.0); Hypochromasia Slight; Lymphocytes # (A) 1.1 k/uL (1.0-4.8); Lymphocytes % (A) 12 %; MCH 31.1 pg (25.0-35.0); MCHC 31.8 g/dL (31.0-37.0); Mean Platelet Volume 7.5; Monocytes # (A) 0.6 k/uL (0-1.0); Monocytes % (A) 7 %; Neutrophils # (A) 7.5 k/uL (1.3-7.7); Neutrophils % (A) 79 %; Platelet Count 459 k/uL (150-450); RBC 2.91 m/uL (3.80-5.40); WBC 9.4 k/uL (3.8-10.6)
[2023-11-24 10:55] LABS: MCV 97.9 fL (80.0-100.0)
[2023-11-24 11:15] LABS: African American GFR (CKD) 77 (>60 ml/min/1.73 sqM); Anion Gap 6 mmol/L; Blood Urea Nitrogen 18 mg/dL (7-17); Calcium 7.6 mg/dL (8.4-10.2); Carbon Dioxide 25 mmol/L (22-30); Chloride 99 mmol/L (98-107); Glucose 213 mg/dL (74-99); Magnesium 1.8 mg/dL (1.6-2.3); Non-African American GFR(CKD) 66 (>60 ml/min/1.73 sqM); Potassium 4.1 mmol/L (3.5-5.1); Sodium 130 mmol/L (137-145)
[2023-11-24 11:26] LABS: Glucose,Whole Blood 202 mg/dL (70-110)
[2023-11-24 11:53] LABS: C Reactive Protein 26.1 mg/dL (<1.0)
[2023-11-24] MEDS ORDERED: IPRATROPIUM-ALBUTEROL 3 ML NEB INHALATION PRN (13:34)
--- NOTE | 2023-11-24 14:51 | P.PN ---
Subjective Progress Note Date: 11/24/23 Principal diagnosis: Right pleural effusion/malignant I saw this patient in the emergency department for shortness of breath. The patient is known to have a loculated right-sided pleural effusion and the patient has undergone a Pleurx catheter insertion and the catheter was inserted by thoracic surgery on 11/08/2023. The patient was getting good output from the Pleurx catheter and output had dropped and the last drainage was around 4 days ago and output had dropped down to 300 cc. She came in for shortness of breath. I attempted to drain the pleural fluid in the emergency department through the Pleurx catheter and there was no output. Based on that, I made recommendations to obtain a CAT scan of the chest. The chest x-ray was reviewed and the patient has a loculated right-sided pleural effusion and Pleurx catheter is directed towards the lung apex. Note that the patient has recurrent right-sided pleural effusion that was thought to be malignant although this has not been proven. She has history of metastatic breast cancer. I initially drained this patient on 10/27/2019 for a total of 2.2 L of pleural fluid was aspirated from the right lung and this was exudative with an elevated LDH and the fluid cytology was negative. Subsequently, the patient Pleurx catheter. The pleural fluid was analyzed and was again negative for malignancy.. Nevertheless, the patient is known to have w metastatic disease. The patient is known to have hormone positive HER2/sarah right-sided breast cancer and she has undergone previous lumpectomy and axillary node dissection back in 1998 followed by radiation therapy and tamoxifen. She prese was subsequently found to have invasive ductal carcinoma of the right breast biopsy showing grade 3 invasive ductal carcinoma and diagnosed with established by a punch biopsy of the skin. PET scan that was done on 12/12/2022 showed an abnormal doubling activity in the breast corresponding to the cancer. She is also known to have diabetes mellitus type 2, hyperlipidemia and hypothyroidism. At this point in time, the patient is on room air oxygen. No fever. No chills. No cough or sputum production. Blood work is essentially within normal limits. proBNP level is not elevated. The patient is maintained on Lantus insulin on outpatient basis in addition to Ozempic. She is also on metformin. The patient is seen today November 21, 2023 in follow-up on the regular medical floor. She is currently sitting up in bed. Awake and alert in no acute distress. She is maintaining good O2 saturations in the 90s on room air. She has been afebrile. Hemodynamically stable. Denies any worsening shortness of breath, cough or congestion. CT scan of the chest revealed a stable right-sided large pleural effusion and pleural nodularity. Drainage catheter terminating in the right lung apex. Mediastinal adenopathy. Small pericardial effusion. Healing right rib fractures. Glucose 169. The patient is seen today November 22, 2023 in follow-up on the regular medical floor. She is awake and alert in no acute distress. Maintaining O2 saturations in the 90s on room air. Glucose 162. She did receive alteplase/dornase in jection through the Pleurx catheter today and had over 1 L drained to the Pleur- evac which is connected to continuous low wall suction -20 cm of water. Follow- up chest x-ray for tomorrow. The patient is seen today November 23, 2023 in follow-up on the regular medical floor. She is currently sitting up in bed. Awake and alert in no acute distress. Breathing easier today compared to yesterday. She did have approximately 2 L of fluid out of her Pleurx catheter following the alteplase/dornase infusion. Today's chest x-ray still shows significant effusion and loculation. Plan is for additional alteplase/dornase infusion per CT services again today. Follow-up chest x-ray tomorrow. Glucose 191. Patient was reevaluated today on 11/24/2023, patient is doing well, patient had lytic instilled into her right Pleurx catheter yesterday and 1400 cc of fluid was evacuated. Today she is feeling a bit better, breathing easier, remains on few liters nasal cannula, does not seem to be in any distress. Cultures on the fluid are pending, strongly doubt infection but nonetheless the patient is on Zosyn empirically. Her fluid has been malignant. WBC count today is 9.4 hemoglobin is 9 basic metabolic profile is normal renal profile is normal Objective - Vital Signs Vital signs: Vital Signs Temp 97.8 F 11/24/23 08:00 Pulse 103 H 11/24/23 12:00 Resp 16 11/24/23 12:00 BP 93/59 11/24/23 12:00 Pulse Ox 96 11/24/23 12:00 FiO2 Intake & Output 11/23/23 11/24/23 11/24/23 18:59 06:59 18:59 Intake Total 360 350 Output Total 710 Balance -350 350 Intake: Oral 360 350 Output: Chest Tube Drainage 710 Pleural Catheter Right 710 Anterior Chest Other: Voiding Method Toilet Toilet # Voids 1 - Exam CONSTITUTIONAL: Reveals 63-year-old female in no distress RESPIRATORY: Diminished breath sounds at the right side, relatively clear on the left side. CARDIOVASCULAR: normal S1-S2, no S3 gallop, no murmur. GASTROINTESTINAL: Soft nontender no megaly no rebound INTEGUMENTARY: No rashes NEUROLOGIC: Alert oriented x 3 no gross focal deficit MUSKULOSKELETAL: No deformities and no limitation range of motion PSYCHIATRIC: Normal mood affect and no mental status examination. INVASIVE LINES AND TUBES: Right pleurx catheter present and connected to wall suction, no air leaks present, 1400 mL serosanguineous drainage in the last 24 hours - Labs CBC & Chem 7: 11/24/23 09:45 11/24/23 09:45 Labs: Abnormal Lab Results - Last 24 Hours (Table) 11/23/23 11/23/23 11/23/23 Range/Units 11:54 16:46 19:58 RBC (3.80-5.40) m/uL Hgb (11.4-16.0) gm/dL Hct (34.0-46.0) % MCV 103.2 H D (80.0-100.0) fL Plt Count (150-450) k/uL Sodium (137-145) mmol/L BUN (7-17) mg/dL Glucose (74-99) mg/dL POC Glucose (mg/dL) 231 H 228 H (70-110) mg/dL Calcium (8.4-10.2) mg/dL C-Reactive Protein (<1.0) mg/dL 11/24/23 11/24/23 11/24/23 Range/Units 06:11 09:45 09:45 RBC 2.91 L (3.80-5.40) m/uL Hgb 9.0 L D (11.4-16.0) gm/dL Hct 28.4 L (34.0-46.0) % MCV (80.0-100.0) fL Plt Count 459 H (150-450) k/uL Sodium 130 L (137-145) mmol/L BUN 18 H (7-17) mg/dL Glucose 213 H (74-99) mg/dL POC Glucose (mg/dL) 162 H (70-110) mg/dL Calcium 7.6 L (8.4-10.2) mg/dL C-Reactive Protein 26.1 H (<1.0) mg/dL 11/24/23 Range/Units 11:20 RBC (3.80-5.40) m/uL Hgb (11.4-16.0) gm/dL Hct (34.0-46.0) % MCV (80.0-100.0) fL Plt Count (150-450) k/uL Sodium (137-145) mmol/L BUN (7-17) mg/dL Glucose (74-99) mg/dL POC Glucose (mg/dL) 202 H (70-110) mg/dL Calcium (8.4-10.2) mg/dL C-Reactive Protein (<1.0) mg/dL Assessment and Plan Assessment: Pression: Collated malignant right-sided pleural effusion, patient has been receiving lytic therapy with success. Acute on chronic shortness of breath secondary to above History of invasive ductal carcinoma of the breast initial diagnosis back in 1998 patient had subsequent tumor recurrence and punch biopsy of the skin confirming invasive ductal carcinoma of the breast Type 2 diabetes maintained on insulin Benign essential hypertension History of hypothyroidism Dyslipidemia Recommendation: Continue Pleurx catheter to suction Patient is being followed by thoracic surgery, Will likely repeat CT of the chest in the next couple of days. Awaiting cultures from pleural effusion Continue antibiotics empirically doubt infection doubt empyema Will continue to follow Time with Patient: Less than 30
--- NOTE | 2023-11-24 15:35 | P.PN ---
Subjective Progress Note Date: 11/24/23 Principal diagnosis: Reason for follow-up is fever possible empyema Patient is a 63-year-old female past medical history diabetes mellitus reflux hypertension hyperlipidemia history of right breast cancer patient also have a history of right-sided malignant effusion for the patient did have a previous thoracocentesis done and recently did have a Pleurx catheter placement, patient was in the hospital with increasing shortness of breath right-sided chest pain and did have a fever prompting this consultation. On today's evaluation that is 11/24/2023, Patient did have resolution of her fever and is afebrile today, patient is currently on 2 L nasal cannula oxygen an d denies having any shortness of breath, the patient denies any chest pain or worsening cough, the patient denies any nausea vomiting did not have any abdominal pain and no diarrhea. Patient white count is down to 9.4, creatinine 0.91 CRP 26.1 Objective - Vital Signs Vital signs: Vital Signs Temp 97.8 F 11/24/23 08:00 Pulse 103 H 11/24/23 12:00 Resp 16 11/24/23 12:00 BP 93/59 11/24/23 12:00 Pulse Ox 96 11/24/23 12:00 FiO2 Intake & Output 11/23/23 11/24/23 11/24/23 18:59 06:59 18:59 Intake Total 360 350 Output Total 710 Balance -350 350 Intake: Oral 360 350 Output: Chest Tube Drainage 710 Pleural Catheter Right 710 Anterior Chest Other: Voiding Method Toilet Toilet # Voids 1 - Exam GENERAL DESCRIPTION: An elderly female lying in bed in no distress RESPIRATORY SYSTEM: Unlabored breathing , decreased breath sounds at bases HEART: S1 S2 regular rate and rhythm , ABDOMEN: Soft , no tenderness EXTREMITIES: No edema feet - Labs CBC & Chem 7: 11/24/23 09:45 11/24/23 09:45 Labs: Abnormal Lab Results - Last 24 Hours (Table) 11/23/23 11/23/23 11/23/23 Range/Units 11:54 16:46 19:58 RBC (3.80-5.40) m/uL Hgb (11.4-16.0) gm/dL Hct (34.0-46.0) % MCV 103.2 H D (80.0-100.0) fL Plt Count (150-450) k/uL Sodium (137-145) mmol/L BUN (7-17) mg/dL Glucose (74-99) mg/dL POC Glucose (mg/dL) 231 H 228 H (70-110) mg/dL Hemoglobin A1c (<=6.0) % Calcium (8.4-10.2) mg/dL C-Reactive Protein (<1.0) mg/dL 11/24/23 11/24/23 11/24/23 Range/Units 06:11 09:45 09:45 RBC 2.91 L (3.80-5.40) m/uL Hgb 9.0 L D (11.4-16.0) gm/dL Hct 28.4 L (34.0-46.0) % MCV (80.0-100.0) fL Plt Count 459 H (150-450) k/uL Sodium (137-145) mmol/L BUN (7-17) mg/dL Glucose (74-99) mg/dL POC Glucose (mg/dL) 162 H (70-110) mg/dL Hemoglobin A1c 6.7 H (<=6.0) % Calcium (8.4-10.2) mg/dL C-Reactive Protein (<1.0) mg/dL 11/24/23 11/24/23 Range/Units 09:45 11:20 RBC (3.80-5.40) m/uL Hgb (11.4-16.0) gm/dL Hct (34.0-46.0) % MCV (80.0-100.0) fL Plt Count (150-450) k/uL Sodium 130 L (137-145) mmol/L BUN 18 H (7-17) mg/dL Glucose 213 H (74-99) mg/dL POC Glucose (mg/dL) 202 H (70-110) mg/dL Hemoglobin A1c (<=6.0) % Calcium 7.6 L (8.4-10.2) mg/dL C-Reactive Protein 26.1 H (<1.0) mg/dL Assessment and Plan (1) Fever Current Visit: Yes Status: Acute Code(s): R50.9 - FEVER, UNSPECIFIED SNOMED Code(s): 984606679 Plan: 1patient with a fever and leukocytosis in this patient who did have a malignant right-sided effusion for the patient did have Pleurx catheter placement admitted to the hospital with right-sided chest pain and decreased output from her Pleurx catheter s/p alteplase instillation, with the patient developing fever concern for possible pulmonary source 2blood culture has been obtained including marked elevated, CT surgery planning to collect pleural fluid for Gram stain and culture 3patient to continue with Zosyn 3.37 g every 8 hours while waiting for the culture to finalize Dictation was produced using [employer] dictation software. please excuse any grammatical, word or spelling errors. Time with Patient: Less than 30
[2023-11-24 16:13] LABS: Glucose,Whole Blood 140 mg/dL (70-110)
[2023-11-24 20:08] LABS: Glucose,Whole Blood 258 mg/dL (70-110)
--- NOTE | 2023-11-24 20:48 | PN ---
PROGRESS NOTE DATE OF SERVICE: 11/24/2023 SUBJECTIVE: This is a 63-year-old woman, who was admitted with recurrent right pleural effusion loculated, had a PleurX drainage. The patient had shortness of breath and the patient is transferred to telemetry at this time. The patient also had tachycardia and fever. The white count is only 9.4. The patient is on IV Zosyn at this time empirically. PAST MEDICAL HISTORY: Reviewed. REVIEW OF SYSTEMS: A 14-point review is negative except as mentioned earlier. CURRENT MEDICATIONS: Reviewed include IV Zosyn. Doses and rest of medications noted. PHYSICAL EXAMINATION: VITAL SIGNS: Pulse is 104, blood pressure 93/60, respirations 16. CHEST: Scattered rhonchi and crackles. Right chest tube. CARDIOVASCULAR: S1, S2. ABDOMEN: Soft. NERVOUS SYSTEM: Nonfocal. LABORATORY DATA: WBC 9, rest of the labs are noted. Today's chest x-ray, which I reviewed personally showed possible evidence of right lower lobe pneumonia and pleural effusion also. ASSESSMENT: 1. Recurrent large right-sided loculated effusion, exudative, possibly malignant on PleurX drainage. 2. Fever, possibly right lower lobe pneumonia, possibly consider gram-negative. 3. Recurrent right-sided pleural effusion and recurrent breast cancer. 4. Hypertension. 5. Hyperlipidemia. 6. Diabetes mellitus type 2. 7. Hypomagnesemia. RECOMMENDATIONS AND DISCUSSION: Recommend to continue current management and continue symptomatic treatment, otherwise empiric antibiotics. I would also get Infectious Disease evaluation closely with Pulmonary. Guarded prognosis. We will obtain the cultures and further recommendations to follow. Optimize bronchodilators as well. See orders for further details. Prognosis guarded. MMODL / IJN: [id number] /
[2023-11-24] MEDS: IPRATROPIUM-ALBUTEROL 3 ML NEB INHALATION SCH (21:21)
[2023-11-25 06:11] LABS: Glucose,Whole Blood 114 mg/dL (70-110)
--- NOTE | 2023-11-25 08:38 | XR ---
EXAMINATION TYPE: XR chest 1V portable DATE OF EXAM: 11/25/2023 COMPARISON: 11/24/2023 HISTORY: Pleural effusion TECHNIQUE: Single frontal view of the chest is obtained. FINDINGS: Moderate right-sided pleural effusion with volume loss and basilar consolidation stable. L eft lung demonstrates no overt failure. There is subsegmental basilar atelectasis and tiny left effus ion. Postsurgical changes in the abdomen. Heart size normal. Right apical and medial and Paratracheal soft tissue fullness is stable. Underlying mass or adenopathy suspected. Deformity of the lateral ri b cage suggestive of prior fractures, possibly pathologic. There is a right-sided chest tube noted. S urgical clips in the axilla. IMPRESSION: 1. Stable moderate sized right pleural effusion with consolidation. 2. Stable right apical pleural thickening or mass.
--- NOTE | 2023-11-25 09:51 | P.PN ---
Subjective Progress Note Date: 11/25/23 Principal diagnosis: Recurrent large right-sided pleural effusion. History of recurrent right-sided pleural effusion status post right Pleurx catheter placement, breast cancer in 1998 status post lumpectomy and right axillary node dissection as well as radiation therapy and tamoxifen with recurrence of breast cancer status post chemotherapy with last dose in May 2023, hypertension, hyperlipidemia, hypothyroid, diabetes mellitus type II, lifetime non-smoker but exposed to secondhand smoke from her , edible marijuana use The patient was seen and examined this morning laying in bed on the cardiac stepdown unit in no acute distress. She did have third dose lytics instilled to her right-sided Pleurx catheter yesterday with evacuation of over 1500 mL fluid, 150 mL of which was sent for gram stain and culture yesterday. Preliminary gram stain of pleural fluid is negative, blood cultures preliminarily growing coag neg staph. Remains on IV zosyn. States her breathing feels better, currently on room air, achieving 750 mL on incentive spirometry. Chest x-ray reviewed. No other new concerns. Objective - Vital Signs Vital signs: Vital Signs Temp 98.6 F 11/25/23 07:45 Pulse 76 11/25/23 07:58 Resp 20 11/25/23 07:45 BP 96/61 11/25/23 07:45 Pulse Ox 96 11/25/23 07:48 FiO2 Intake & Output 11/24/23 11/25/23 11/25/23 18:59 06:59 18:59 Intake Total 772 300 Output Total 950 220 Balance -178 80 Intake: Intake, IV Titration 200 Amount Piperacillin-Tazobactam 3 200 .375 gm In Sodium Chloride 0.9% 100 ml @ 25 mls/hr [facility] Rx# :[id number] Oral 572 300 Output: Chest Tube Drainage 950 220 Pleural Catheter Right 950 220 Anterior Chest Other: Voiding Method Toilet Toilet Toilet # Voids 2 - Exam CONSTITUTIONAL: Appears comfortable, cooperative, no acute distress RESPIRATORY: Lungs sounds diminished on the right but better than yesterday. Respirations even, nonlabored. Currently on room air with oxygen saturation 95%. Strong cough. Able to achieve 750 mL on incentive spirometry CARDIOVASCULAR: S1, S2 present. Regular rate and rhythm, sinus rhythm on telemetry. Palpable peripheral pulses bilaterally. No edema present. No calf pain or tenderness noted GASTROINTESTINAL: Abdomen soft, nontender, nondistended. Active bowel sounds present 4 quadrants. Tolerating diet. Positive bowel movement. GENITOURINARY: Continues to void INTEGUMENTARY: Skin is warm and dry NEUROLOGIC: Cranial nerves II through XII intact MUSKULOSKELETAL: Able to move all extremities, strength equal bilaterally, gait normal PSYCHIATRIC: Alert and oriented to person place and time, appropriate affect, intact judgment and insight INVASIVE LINES AND TUBES: Right pleurx catheter present and connected to wall suction, no air leaks present, 1500 mL serosanguineous drainage in the last 24 hours - Allied health notes Allied health notes reviewed: nursing - Labs CBC & Chem 7: 11/24/23 09:45 11/24/23 09:45 Labs: Abnormal Lab Results - Last 24 Hours (Table) 11/24/23 11/24/23 11/24/23 Range/Units 09:45 09:45 09:45 RBC 2.91 L (3.80-5.40) m/uL Hgb 9.0 L D (11.4-16.0) gm/dL Hct 28.4 L (34.0-46.0) % Plt Count 459 H (150-450) k/uL Sodium 130 L (137-145) mmol/L BUN 18 H (7-17) mg/dL Glucose 213 H (74-99) mg/dL POC Glucose (mg/dL) (70-110) mg/dL Hemoglobin A1c 6.7 H (<=6.0) % Calcium 7.6 L (8.4-10.2) mg/dL C-Reactive Protein 26.1 H (<1.0) mg/dL Procalcitonin (0.02-0.09) ng/mL 11/24/23 11/24/23 11/24/23 Range/Units 09:45 11:20 16:12 RBC (3.80-5.40) m/uL Hgb (11.4-16.0) gm/dL Hct (34.0-46.0) % Plt Count (150-450) k/uL Sodium (137-145) mmol/L BUN (7-17) mg/dL Glucose (74-99) mg/dL POC Glucose (mg/dL) 202 H 140 H (70-110) mg/dL Hemoglobin A1c (<=6.0) % Calcium (8.4-10.2) mg/dL C-Reactive Protein (<1.0) mg/dL Procalcitonin 2.54 H (0.02-0.09) ng/mL 11/24/23 11/25/23 Range/Units 20:07 06:09 RBC (3.80-5.40) m/uL Hgb (11.4-16.0) gm/dL Hct (34.0-46.0) % Plt Count (150-450) k/uL Sodium (137-145) mmol/L BUN (7-17) mg/dL Glucose (74-99) mg/dL POC Glucose (mg/dL) 258 H 114 H (70-110) mg/dL Hemoglobin A1c (<=6.0) % Calcium (8.4-10.2) mg/dL C-Reactive Protein (<1.0) mg/dL Procalcitonin (0.02-0.09) ng/mL Microbiology - Last 24 Hours (Table) 11/23/23 21:54 Blood Culture Gram Stain - Preliminary Blood Blood Culture - Preliminary Coagulase Negative Staph 11/24/23 10:30 Gram Stain - Preliminary Pleural Fluid - Imaging and Cardiology Chest x-ray: report reviewed, image reviewed Assessment and Plan Assessment: Recurrent large right-sided loculated pleural effusion Shortness of breath, chest pain secondary to above History of recurrent right-sided pleural effusion status post right Pleurx catheter placement 11/08/23 History of breast cancer in 1998 status post lumpectomy and right axillary node dissection as well as radiation therapy and tamoxifen Recurrence of breast cancer status post chemotherapy with last dose in May 2023 Hypertension Hyperlipidemia Hypothyroid Diabetes mellitus type II Lifetime non-smoker but exposed to secondhand smoke from her Edible marijuana use Fever, tachycardia Plan: Fourth dose of alteplase/dornase to be instilled to right-sided Pleurx catheter, will clamp for 1 to 2 hours, then will place Pleurx catheter atrium back to suction Will monitor daily chest x-rays Encourage incentive spirometry use Increase activity as tolerated Pain control with current medication regimen Antibiotics per ID Medical management of other comorbidities per internal medicine, pulmonology More recommendations to follow
[2023-11-25] MEDS: DORNASE ALFA 5 MG in SODIUM CHLORIDE 0.9% 50 ML IRRIGATION ONE (10:50)
[2023-11-25] MEDS: ALTEPLASE 10 MG in SODIUM CHLORIDE 0.9% 50 ML IRRIGATION ONE (10:50)
[2023-11-25 11:38] LABS: African American GFR (CKD) >90 (>60 ml/min/1.73 sqM); Anion Gap 5 mmol/L; Blood Urea Nitrogen 15 mg/dL (7-17); Calcium 7.4 mg/dL (8.4-10.2); Carbon Dioxide 24 mmol/L (22-30); Chloride 102 mmol/L (98-107); Glucose 162 mg/dL (74-99); Non-African American GFR(CKD) 83 (>60 ml/min/1.73 sqM); Potassium 4.1 mmol/L (3.5-5.1); Sodium 131 mmol/L (137-145)
[2023-11-25 11:39] LABS: Glucose,Whole Blood 172 mg/dL (70-110)
[2023-11-25 11:54] LABS: Basophils % (A) 0 %; Eosinophils # (A) 0.1 k/uL (0-0.7); Eosinophils % (A) 1 %; HCT 23.7 % (34.0-46.0); Hypochromasia Slight; Lymphocytes # (A) 1.3 k/uL (1.0-4.8); Lymphocytes % (A) 14 %; MCH 30.3 pg (25.0-35.0); MCHC 30.8 g/dL (31.0-37.0); MCV 98.4 fL (80.0-100.0); Mean Platelet Volume 7.6; Monocytes # (A) 0.7 k/uL (0-1.0); Monocytes % (A) 7 %; Neutrophils # (A) 7.5 k/uL (1.3-7.7); Neutrophils % (A) 77 %; Platelet Count 522 k/uL (150-450); RBC 2.41 m/uL (3.80-5.40); RDW 11.9 % (11.5-15.5); WBC 9.8 k/uL (3.8-10.6)
[2023-11-25 11:59] LABS: HGB 7.3 gm/dL (11.4-16.0)
[2023-11-25 13:29] VITALS: BMI 25.4
[2023-11-25] MEDS: FUROSEMIDE 10 MG/ML 2 ML VIAL IV ONE (14:10)
--- NOTE | 2023-11-25 15:12 | P.PN ---
Subjective Progress Note Date: 11/25/23 Principal diagnosis: Right pleural effusion/malignant I saw this patient in the emergency department for shortness of breath. The patient is known to have a loculated right-sided pleural effusion and the patient has undergone a Pleurx catheter insertion and the catheter was inserted by thoracic surgery on 11/08/2023. The patient was getting good output from the Pleurx catheter and output had dropped and the last drainage was around 4 days ago and output had dropped down to 300 cc. She came in for shortness of breath. I attempted to drain the pleural fluid in the emergency department through the Pleurx catheter and there was no output. Based on that, I made recommendations to obtain a CAT scan of the chest. The chest x-ray was reviewed and the patient has a loculated right-sided pleural effusion and Pleurx catheter is directed towards the lung apex. Note that the patient has recurrent right-sided pleural effusion that was thought to be malignant although this has not been proven. She has history of metastatic breast cancer. I initially drained this patient on 10/27/2019 for a total of 2.2 L of pleural fluid was aspirated from the right lung and this was exudative with an elevated LDH and the fluid cytology was negative. Subsequently, the patient Pleurx catheter. The pleural fluid was analyzed and was again negative for malignancy.. Nevertheless, the patient is known to have w metastatic disease. The patient is known to have hormone positive HER2/sarah right-sided breast cancer and she has undergone previous lumpectomy and axillary node dissection back in 1998 followed by radiation therapy and tamoxifen. She prese was subsequently found to have invasive ductal carcinoma of the right breast biopsy showing grade 3 invasive ductal carcinoma and diagnosed with established by a punch biopsy of the skin. PET scan that was done on 12/12/2022 showed an abnormal doubling activity in the breast corresponding to the cancer. She is also known to have diabetes mellitus type 2, hyperlipidemia and hypothyroidism. At this point in time, the patient is on room air oxygen. No fever. No chills. No cough or sputum production. Blood work is essentially within normal limits. proBNP level is not elevated. The patient is maintained on Lantus insulin on outpatient basis in addition to Ozempic. She is also on metformin. The patient is seen today November 21, 2023 in follow-up on the regular medical floor. She is currently sitting up in bed. Awake and alert in no acute distress. She is maintaining good O2 saturations in the 90s on room air. She has been afebrile. Hemodynamically stable. Denies any worsening shortness of breath, cough or congestion. CT scan of the chest revealed a stable right-sided large pleural effusion and pleural nodularity. Drainage catheter terminating in the right lung apex. Mediastinal adenopathy. Small pericardial effusion. Healing right rib fractures. Glucose 169. The patient is seen today November 22, 2023 in follow-up on the regular medical floor. She is awake and alert in no acute distress. Maintaining O2 saturations in the 90s on room air. Glucose 162. She did receive alteplase/dornase in jection through the Pleurx catheter today and had over 1 L drained to the Pleur- evac which is connected to continuous low wall suction -20 cm of water. Follow- up chest x-ray for tomorrow. The patient is seen today November 23, 2023 in follow-up on the regular medical floor. She is currently sitting up in bed. Awake and alert in no acute distress. Breathing easier today compared to yesterday. She did have approximately 2 L of fluid out of her Pleurx catheter following the alteplase/dornase infusion. Today's chest x-ray still shows significant effusion and loculation. Plan is for additional alteplase/dornase infusion per CT services again today. Follow-up chest x-ray tomorrow. Glucose 191. Patient was reevaluated today on 11/24/2023, patient is doing well, patient had lytic instilled into her right Pleurx catheter yesterday and 1400 cc of fluid was evacuated. Today she is feeling a bit better, breathing easier, remains on few liters nasal cannula, does not seem to be in any distress. Cultures on the fluid are pending, strongly doubt infection but nonetheless the patient is on Zosyn empirically. Her fluid has been malignant. WBC count today is 9.4 hemoglobin is 9 basic metabolic profile is normal renal profile is normal Reevaluate today on 11/25/2023, patient is doing well, continues to do well, patient had another lytic therapy instilled to her right Pleurx catheter today. Patient is doing well, feeling better, breathing easier WBC count is 9.8 hemoglobin 7.3 basic metabolic profile is normal, blood cultures came back positive for coagulase-negative staph,/contamination, pleural effusion fluid is negative for infection Objective - Vital Signs Vital signs: Vital Signs Temp 98.9 F 11/25/23 11:14 Pulse 104 H 11/25/23 13:38 Resp 20 11/25/23 11:14 BP 95/61 11/25/23 11:14 Pulse Ox 95 11/25/23 11:14 FiO2 Intake & Output 11/24/23 11/25/23 11/25/23 18:59 06:59 18:59 Intake Total 772 300 360 Output Total 950 220 900 Balance -178 80 -540 Weight 58.967 kg Intake: Intake, IV Titration 200 Amount Piperacillin-Tazobactam 3 200 .375 gm In Sodium Chloride 0.9% 100 ml @ 25 mls/hr IVPB Q8HR [facility] Rx# :[id number] Oral 572 300 360 Output: Chest Tube Drainage 950 220 900 Pleural Catheter Right 950 220 900 Anterior Chest Other: Voiding Method Toilet Toilet Toilet # Voids 2 1 - Exam CONSTITUTIONAL: Reveals 63-year-old female in no distress RESPIRATORY: Diminished breath sounds at the right side, relatively clear on the left side. CARDIOVASCULAR: normal S1-S2, no S3 gallop, no murmur. GASTROINTESTINAL: Soft nontender no megaly no rebound INTEGUMENTARY: No rashes NEUROLOGIC: Alert oriented x 3 no gross focal deficit MUSKULOSKELETAL: No deformities and no limitation range of motion PSYCHIATRIC: Normal mood affect and no mental status examination. INVASIVE LINES AND TUBES: Right pleurx catheter present and connected to wall suction, no air leaks present - Labs CBC & Chem 7: 11/25/23 11:09 11/25/23 11:09 Labs: Abnormal Lab Results - Last 24 Hours (Table) 11/24/23 11/24/23 11/24/23 Range/Units 09:45 09:45 16:12 RBC (3.80-5.40) m/uL Hgb (11.4-16.0) gm/dL Hct (34.0-46.0) % MCHC (31.0-37.0) g/dL Plt Count (150-450) k/uL Sodium (137-145) mmol/L Glucose (74-99) mg/dL POC Glucose (mg/dL) 140 H (70-110) mg/dL Hemoglobin A1c 6.7 H (<=6.0) % Calcium (8.4-10.2) mg/dL Procalcitonin 2.54 H (0.02-0.09) ng/mL 11/24/23 11/25/23 11/25/23 Range/Units 20:07 06:09 11:09 RBC 2.41 L (3.80-5.40) m/uL Hgb 7.3 L D (11.4-16.0) gm/dL Hct 23.7 L (34.0-46.0) % MCHC 30.8 L (31.0-37.0) g/dL Plt Count 522 H (150-450) k/uL Sodium (137-145) mmol/L Glucose (74-99) mg/dL POC Glucose (mg/dL) 258 H 114 H (70-110) mg/dL Hemoglobin A1c (<=6.0) % Calcium (8.4-10.2) mg/dL Procalcitonin (0.02-0.09) ng/mL 11/25/23 11/25/23 Range/Units 11:09 11:38 RBC (3.80-5.40) m/uL Hgb (11.4-16.0) gm/dL Hct (34.0-46.0) % MCHC (31.0-37.0) g/dL Plt Count (150-450) k/uL Sodium 131 L (137-145) mmol/L Glucose 162 H (74-99) mg/dL POC Glucose (mg/dL) 172 H (70-110) mg/dL Hemoglobin A1c (<=6.0) % Calcium 7.4 L (8.4-10.2) mg/dL Procalcitonin (0.02-0.09) ng/mL Microbiology - Last 24 Hours (Table) 11/23/23 21:54 Blood Culture Gram Stain - Preliminary Blood Blood Culture - Preliminary Coagulase Negative Staph 11/24/23 10:30 Gram Stain - Preliminary Pleural Fluid Assessment and Plan Assessment: Pression: Collated malignant right-sided pleural effusion, patient has been receiving lytic therapy with success. Acute on chronic shortness of breath secondary to above History of invasive ductal carcinoma of the breast initial diagnosis back in 1998 patient had subsequent tumor recurrence and punch biopsy of the skin confirming invasive ductal carcinoma of the breast Type 2 diabetes maintained on insulin Benign essential hypertension History of hypothyroidism Dyslipidemia Recommendation: Continue Pleurx catheter Patient received her fourth dose of lytic therapy. Alteplase/dornase Patient is being followed by thoracic surgery, Will likely repeat CT of the chest in the next couple of days. effusion cultures are negative so far Continue antibiotics empirically doubt infection doubt empyema Will continue to follow Time with Patient: Less than 30
--- NOTE | 2023-11-25 15:24 | P.PN ---
Subjective Progress Note Date: 11/25/23 Principal diagnosis: Reason for follow-up is fever possible empyema Patient is a 63-year-old female past medical history diabetes mellitus reflux hypertension hyperlipidemia history of right breast cancer patient also have a history of right-sided malignant effusion for the patient did have a previous thoracocentesis done and recently did have a Pleurx catheter placement, patient was in the hospital with increasing shortness of breath right-sided chest pain and did have a fever prompting this consultation. On today's evaluation that is 11/25/2023, patient has been afebrile, patient is breathing comfortably and is currently on room air, patient denies having any worsening cough or worsening right-sided chest pain shortness of breath, patient denies nausea vomiting or diarrhea and no abdominal pain. Patient white count is 9.8, creatinine 0.76 blood culture with coagulase- negative staph pleural fluid cultures pending Objective - Vital Signs Vital signs: Vital Signs Temp 98.9 F 11/25/23 11:14 Pulse 75 11/25/23 11:53 Resp 20 11/25/23 11:14 BP 95/61 11/25/23 11:14 Pulse Ox 95 11/25/23 11:14 FiO2 Intake & Output 11/24/23 11/25/23 11/25/23 18:59 06:59 18:59 Intake Total 772 300 180 Output Total 950 220 420 Balance -178 80 -240 Weight 58.967 kg Intake: Intake, IV Titration 200 Amount Piperacillin-Tazobactam 3 200 .375 gm In Sodium Chloride 0.9% 100 ml @ 25 mls/hr IVPB Q8HR [facility] Rx# :[id number] Oral 572 300 180 Output: Chest Tube Drainage 950 220 420 Pleural Catheter Right 950 220 420 Anterior Chest Other: Voiding Method Toilet Toilet Toilet # Voids 2 1 - Exam GENERAL DESCRIPTION: An elderly female lying in bed in no distress RESPIRATORY SYSTEM: Unlabored breathing , decreased breath sounds at bases HEART: S1 S2 regular rate and rhythm , ABDOMEN: Soft , no tenderness EXTREMITIES: No edema feet - Labs CBC & Chem 7: 11/25/23 11:09 11/25/23 11:09 Labs: Abnormal Lab Results - Last 24 Hours (Table) 11/24/23 11/24/23 11/24/23 Range/Units 09:45 09:45 16:12 RBC (3.80-5.40) m/uL Hgb (11.4-16.0) gm/dL Hct (34.0-46.0) % MCHC (31.0-37.0) g/dL Plt Count (150-450) k/uL Sodium (137-145) mmol/L Glucose (74-99) mg/dL POC Glucose (mg/dL) 140 H (70-110) mg/dL Hemoglobin A1c 6.7 H (<=6.0) % Calcium (8.4-10.2) mg/dL Procalcitonin 2.54 H (0.02-0.09) ng/mL 11/24/23 11/25/23 11/25/23 Range/Units 20:07 06:09 11:09 RBC 2.41 L (3.80-5.40) m/uL Hgb 7.3 L D (11.4-16.0) gm/dL Hct 23.7 L (34.0-46.0) % MCHC 30.8 L (31.0-37.0) g/dL Plt Count 522 H (150-450) k/uL Sodium (137-145) mmol/L Glucose (74-99) mg/dL POC Glucose (mg/dL) 258 H 114 H (70-110) mg/dL Hemoglobin A1c (<=6.0) % Calcium (8.4-10.2) mg/dL Procalcitonin (0.02-0.09) ng/mL 11/25/23 11/25/23 Range/Units 11:09 11:38 RBC (3.80-5.40) m/uL Hgb (11.4-16.0) gm/dL Hct (34.0-46.0) % MCHC (31.0-37.0) g/dL Plt Count (150-450) k/uL Sodium 131 L (137-145) mmol/L Glucose 162 H (74-99) mg/dL POC Glucose (mg/dL) 172 H (70-110) mg/dL Hemoglobin A1c (<=6.0) % Calcium 7.4 L (8.4-10.2) mg/dL Procalcitonin (0.02-0.09) ng/mL Microbiology - Last 24 Hours (Table) 03/27/24 21:54 Blood Culture Gram Stain - Preliminary Blood Blood Culture - Preliminary Coagulase Negative Staph 11/24/23 10:30 Gram Stain - Preliminary Pleural Fluid Assessment and Plan (1) Fever Current Visit: Yes Status: Acute Code(s): R50.9 - FEVER, UNSPECIFIED SNOMED Code(s): 116800631 (2) Positive blood culture Current Visit: Yes Status: Acute Code(s): R78.81 - BACTEREMIA SNOMED Cod e(s): 213501267 Plan: 1patient with a fever and leukocytosis in this patient who did have a malignant right-sided effusion for the patient did have Pleurx catheter placement admitted to the hospital with right-sided chest pain and decreased output from her Pleurx catheter s/p alteplase instillation, with the patient developing fever concern for possible pulmonary source 2blood culture has been obtained which is growing coagulase-negative staph likely skin contamination no need for vancomycin we will repeat the blood cultures, pleural fluid cultures currently pending 3patient to continue with Zosyn 3.37 g every 8 hours while waiting for the the pleural fluid cultures to be finalized Dictation was produced using [employer] dictation software. please excuse any grammatical, word or spelling errors. Time with Patient: Less than 30
[2023-11-25 16:51] LABS: Glucose,Whole Blood 254 mg/dL (70-110)
[2023-11-25 20:07] LABS: Glucose,Whole Blood 126 mg/dL (70-110)
--- NOTE | 2023-11-26 02:32 | PN ---
PROGRESS NOTE DATE OF SERVICE: 11/25/2023 SUBJECTIVE: This is a 63-year-old woman, who was admitted with recurrent right loculated pleural effusion, has taken a turn for the worse. The patient is on antibiotics and bronchodilators. The most recent chest x-ray showed evidence of some possible pneumonia on the right side also. PAST MEDICAL HISTORY: Reviewed. REVIEW OF SYSTEMS: A 14-point review of systems negative except as mentioned earlier. PHYSICAL EXAMINATION: VITAL SIGNS: Pulse is 104, blood pressure 90/64, respirations 20. CHEST: A few scattered rhonchi and crackles. Right chest tube. ABDOMEN: Soft. NERVOUS SYSTEM: Nonfocal. LABORATORY DATA: Hemoglobin 7.3. ASSESSMENT: 1. Recurrent large right-sided loculated effusion, exudative, possibly malignant on PleurX drainage. 2. Fever, possibly right lower lobe pneumonia, possibly consider gram-negative versus aspiration. 3. Recurrent right-sided pleural effusion and recurrent breast cancer. 4. Chronic obstructive pulmonary disease. 5. Hypertension. 6. Hyperlipidemia. 7. Diabetes mellitus, type 2. 8. Hypomagnesemia. 9. Anemia, multifactorial. RECOMMENDATIONS AND DISCUSSION: Recommend to continue current management and continue symptomatic treatment, otherwise at this time, I would recommend repeat labs and continue the bronchodilators. Continue the empiric antibiotics. Closely follow. Guarded prognosis. Further recommendations to follow. We will follow the cultures. Closely follow with multiple consultants. MMODL / IJN: [id number] /
[2023-11-26 06:13] LABS: Glucose,Whole Blood 125 mg/dL (70-110)
--- NOTE | 2023-11-26 09:07 | P.PN ---
Subjective Progress Note Date: 11/26/23 Principal diagnosis: Recurrent large right-sided pleural effusion. History of recurrent right-sided pleural effusion status post right Pleurx catheter placement, breast cancer in 1998 status post lumpectomy and right axillary node dissection as well as radiation therapy and tamoxifen with recurrence of breast cancer status post chemotherapy with last dose in May 2023, hypertension, hyperlipidemia, hypothyroid, diabetes mellitus type II, lifetime non-smoker but exposed to secondhand smoke from her , edible marijuana use The patient was seen and examined this morning laying in bed on the cardiac stepdown unit in no acute distress. She did have fourth dose lytics instilled to her right-sided Pleurx catheter yesterday with evacuation of 1000 mL fluid in the last 24 hours. Preliminary gram stain of pleural fluid preliminarily growing group c beta hemolytic strep, blood cultures preliminarily growing coag neg staph. Remains on IV zosyn. States her breathing feels better, currently on room air, achieving 750 mL on incentive spirometry. Chest x-ray reviewed. Patient's hemaglobin continued to trend down yesterday and she received 1 unit PRBCs, labs still pending for this morning. No other new concerns. Objective - Vital Signs Vital signs: Vital Signs Temp 98.2 F 11/26/23 03:03 Pulse 90 11/26/23 03:03 Resp 18 11/26/23 03:03 BP 112/65 11/26/23 03:03 Pulse Ox 96 11/26/23 03:03 FiO2 Intake & Output 11/25/23 11/26/23 11/26/23 18:59 06:59 18:59 Intake Total 850 Output Total 1600 Balance -750 Weight 58.967 kg Intake: Oral 540 Blood Product 310 Rc As-1 Unit 310 [id number] Output: Chest Tube Drainage 1600 Pleural Catheter Right 1600 Anterior Chest Other: Voiding Method Toilet Toilet # Voids 1 2 - Exam CONSTITUTIONAL: Appears comfortable, cooperative, no acute distress RESPIRATORY: Lungs sounds diminished on the right but better daily. Respirations even, nonlabored. Currently on room air with oxygen saturation 96%. Strong cough. Able to achieve 750 mL on incentive spirometry CARDIOVASCULAR: S1, S2 present. Regular rate and rhythm, sinus rhythm on telemetry. Palpable peripheral pulses bilaterally. No edema present. No calf pain or tenderness noted GASTROINTESTINAL: Abdomen soft, nontender, nondistended. Active bowel sounds present 4 quadrants. Tolerating diet. Positive bowel movement. GENITOURINARY: Continues to void INTEGUMENTARY: Skin is warm and dry NEUROLOGIC: Cranial nerves II through XII intact MUSKULOSKELETAL: Able to move all extremities, strength equal bilaterally, gait normal PSYCHIATRIC: Alert and oriented to person place and time, appropriate affect, intact judgment and insight INVASIVE LINES AND TUBES: Right pleurx catheter present and connected to wall suction, no air leaks present, 1000 mL serosanguineous drainage in the last 24 hours - Allied health notes Allied health notes reviewed: nursing - Labs CBC & Chem 7: 11/25/23 11:09 11/25/23 11:09 Labs: Abnormal Lab Results - Last 24 Hours (Table) 11/25/23 11/25/23 11/25/23 Range/Units 11:09 11:09 11:38 RBC 2.41 L (3.80-5.40) m/uL Hgb 7.3 L D (11.4-16.0) gm/dL Hct 23.7 L (34.0-46.0) % MCHC 30.8 L (31.0-37.0) g/dL Plt Count 522 H (150-450) k/uL Sodium 131 L (137-145) mmol/L Glucose 162 H (74-99) mg/dL POC Glucose (mg/dL) 172 H (70-110) mg/dL Calcium 7.4 L (8.4-10.2) mg/dL Crossmatch 11/25/23 11/25/23 11/25/23 Range/Units 14:41 16:49 20:06 RBC (3.80-5.40) m/uL Hgb (11.4-16.0) gm/dL Hct (34.0-46.0) % MCHC (31.0-37.0) g/dL Plt Count (150-450) k/uL Sodium (137-145) mmol/L Glucose (74-99) mg/dL POC Glucose (mg/dL) 254 H 126 H (70-110) mg/dL Calcium (8.4-10.2) mg/dL Crossmatch See Detail 11/26/23 Range/Units 06:12 RBC (3.80-5.40) m/uL Hgb (11.4-16.0) gm/dL Hct (34.0-46.0) % MCHC (31.0-37.0) g/dL Plt Count (150-450) k/uL Sodium (137-145) mmol/L Glucose (74-99) mg/dL POC Glucose (mg/dL) 125 H (70-110) mg/dL Calcium (8.4-10.2) mg/dL Crossmatch Microbiology - Last 24 Hours (Table) 11/24/23 10:30 Gram Stain - Preliminary Pleural Fluid Body Fluid Culture - Preliminary Gram Neg Bacilli Beta Hemolytic Strep Group C 11/24/23 09:45 Blood Culture - Preliminary Blood 11/23/23 21:54 Blood Culture Gram Stain - Preliminary Blood Blood Culture - Preliminary Coagulase Negative Staph - Imaging and Cardiology Chest x-ray: image reviewed Assessment and Plan Assessment: Recurrent large right-sided loculated pleural effusion Shortness of breath, chest pain secondary to above History of recurrent right-sided pleural effusion status post right Pleurx catheter placement 11/08/23 History of breast cancer in 1998 status post lumpectomy and right axillary node dissection as well as radiation therapy and tamoxifen Recurrence of breast cancer status post chemotherapy with last dose in May 2023 Hypertension Hyperlipidemia Hypothyroid Diabetes mellitus type II Lifetime non-smoker but exposed to secondhand smoke from her Edible marijuana use Fever, tachycardia Plan: Fourth dose of alteplase/dornase instilled to right-sided Pleurx catheter yesterday, no lytics today as patient has had excellent response for drainage but did drop her hemaglobin, will re-eval tomorrow for continued lytic instillation Will monitor daily chest x-rays Encourage incentive spirometry use Increase activity as tolerated Pain control with current medication regimen Antibiotics per ID Medical management of other comorbidities per internal medicine, pulmonology More recommendations to follow
[2023-11-26 11:36] LABS: Basophils % (A) 0 %; Eosinophils # (A) 0.1 k/uL (0-0.7); Eosinophils % (A) 1 %; HCT 28.5 % (34.0-46.0); HGB 8.7 gm/dL (11.4-16.0); Hypochromasia Slight; Lymphocytes # (A) 1.3 k/uL (1.0-4.8); Lymphocytes % (A) 18 %; MCH 29.1 pg (25.0-35.0); MCHC 30.4 g/dL (31.0-37.0); MCV 95.9 fL (80.0-100.0); Mean Platelet Volume 7.2; Monocytes # (A) 0.7 k/uL (0-1.0); Monocytes % (A) 9 %; Neutrophils # (A) 5.1 k/uL (1.3-7.7); Neutrophils % (A) 70 %; Platelet Count 575 k/uL (150-450); RBC 2.97 m/uL (3.80-5.40); RDW 13.8 % (11.5-15.5); WBC 7.3 k/uL (3.8-10.6)
[2023-11-26 11:50] LABS: African American GFR (CKD) 86 (>60 ml/min/1.73 sqM); Anion Gap 7 mmol/L; Blood Urea Nitrogen 13 mg/dL (7-17); Calcium 7.2 mg/dL (8.4-10.2); Carbon Dioxide 23 mmol/L (22-30); Chloride 101 mmol/L (98-107); Glucose 216 mg/dL (74-99); Non-African American GFR(CKD) 75 (>60 ml/min/1.73 sqM); Potassium 3.3 mmol/L (3.5-5.1); Sodium 131 mmol/L (137-145)
[2023-11-26 11:51] LABS: Glucose,Whole Blood 164 mg/dL (70-110)
--- NOTE | 2023-11-26 13:41 | P.PN ---
Subjective Progress Note Date: 11/26/23 Principal diagnosis: Right pleural effusion/malignant I saw this patient in the emergency department for shortness of breath. The patient is known to have a loculated right-sided pleural effusion and the patient has undergone a Pleurx catheter insertion and the catheter was inserted by thoracic surgery on 11/08/2023. The patient was getting good output from the Pleurx catheter and output had dropped and the last drainage was around 4 days ago and output had dropped down to 300 cc. She came in for shortness of breath. I attempted to drain the pleural fluid in the emergency department through the Pleurx catheter and there was no output. Based on that, I made recommendations to obtain a CAT scan of the chest. The chest x-ray was reviewed and the patient has a loculated right-sided pleural effusion and Pleurx catheter is directed towards the lung apex. Note that the patient has recurrent right-sided pleural effusion that was thought to be malignant although this has not been proven. She has history of metastatic breast cancer. I initially drained this patient on 10/27/2019 for a total of 2.2 L of pleural fluid was aspirated from the right lung and this was exudative with an elevated LDH and the fluid cytology was negative. Subsequently, the patient Pleurx catheter. The pleural fluid was analyzed and was again negative for malignancy.. Nevertheless, the patient is known to have w metastatic disease. The patient is known to have hormone positive HER2/sarah right-sided breast cancer and she has undergone previous lumpectomy and axillary node dissection back in 1998 followed by radiation therapy and tamoxifen. She prese was subsequently found to have invasive ductal carcinoma of the right breast biopsy showing grade 3 invasive ductal carcinoma and diagnosed with established by a punch biopsy of the skin. PET scan that was done on 12/12/2022 showed an abnormal doubling activity in the breast corresponding to the cancer. She is also known to have diabetes mellitus type 2, hyperlipidemia and hypothyroidism. At this point in time, the patient is on room air oxygen. No fever. No chills. No cough or sputum production. Blood work is essentially within normal limits. proBNP level is not elevated. The patient is maintained on Lantus insulin on outpatient basis in addition to Ozempic. She is also on metformin. The patient is seen today November 21, 2023 in follow-up on the regular medical floor. She is currently sitting up in bed. Awake and alert in no acute distress. She is maintaining good O2 saturations in the 90s on room air. She has been afebrile. Hemodynamically stable. Denies any worsening shortness of breath, cough or congestion. CT scan of the chest revealed a stable right-sided large pleural effusion and pleural nodularity. Drainage catheter terminating in the right lung apex. Mediastinal adenopathy. Small pericardial effusion. Healing right rib fractures. Glucose 169. The patient is seen today November 22, 2023 in follow-up on the regular medical floor. She is awake and alert in no acute distress. Maintaining O2 saturations in the 90s on room air. Glucose 162. She did receive alteplase/dornase in jection through the Pleurx catheter today and had over 1 L drained to the Pleur- evac which is connected to continuous low wall suction -20 cm of water. Follow- up chest x-ray for tomorrow. The patient is seen today November 23, 2023 in follow-up on the regular medical floor. She is currently sitting up in bed. Awake and alert in no acute distress. Breathing easier today compared to yesterday. She did have approximately 2 L of fluid out of her Pleurx catheter following the alteplase/dornase infusion. Today's chest x-ray still shows significant effusion and loculation. Plan is for additional alteplase/dornase infusion per CT services again today. Follow-up chest x-ray tomorrow. Glucose 191. Patient was reevaluated today on 11/24/2023, patient is doing well, patient had lytic instilled into her right Pleurx catheter yesterday and 1400 cc of fluid was evacuated. Today she is feeling a bit better, breathing easier, remains on few liters nasal cannula, does not seem to be in any distress. Cultures on the fluid are pending, strongly doubt infection but nonetheless the patient is on Zosyn empirically. Her fluid has been malignant. WBC count today is 9.4 hemoglobin is 9 basic metabolic profile is normal renal profile is normal Reevaluate today on 11/25/2023, patient is doing well, continues to do well, patient had another lytic therapy instilled to her right Pleurx catheter today. Patient is doing well, feeling better, breathing easier WBC count is 9.8 hemoglobin 7.3 basic metabolic profile is normal, blood cultures came back positive for coagulase-negative staph,/contamination, pleural effusion fluid is negative for infection Reevaluate today on 11/26/23, patient continues to do well, continues to have lytic treatment, her chest x-ray is showing definite improvement in her right- sided pleural effusion which was loculated. Patient had her fourth dose of lytic treatment instilled in the right Pleurx catheter yesterday, continues to drain in the Pleur-evac. CBC today is normal basic metabolic profile is normal potassium is low at 3.3, Patient did receive a unit of packed RBCs for low hemoglobin yesterday Objective - Vital Signs Vital signs: Vital Signs Temp 98.1 F 11/26/23 09:10 Pulse 120 H 11/26/23 11:50 Resp 17 11/26/23 11:50 BP 104/66 11/26/23 11:50 Pulse Ox 97 11/26/23 11:50 FiO2 Intake & Output 11/25/23 11/26/23 11/26/23 18:59 06:59 18:59 Intake Total 850 236 Output Total 1600 Balance -750 236 Weight 58.967 kg Intake: Oral 540 236 Blood Product 310 Rc As-1 Unit 310 [id number] Output: Chest Tube Drainage 1600 Pleural Catheter Right 1600 Anterior Chest Other: Voiding Method Toilet Toilet Toilet # Voids 1 2 3 # Bowel Movements 2 - Exam CONSTITUTIONAL: Reveals 63-year-old female in no distress RESPIRATORY: Diminished breath sounds at the right side, relatively clear on the left side. CARDIOVASCULAR: normal S1-S2, no S3 gallop, no murmur. GASTROINTESTINAL: Soft nontender no megaly no rebound INTEGUMENTARY: No rashes NEUROLOGIC: Alert oriented x 3 no gross focal deficit MUSKULOSKELETAL: No deformities and no limitation range of motion PSYCHIATRIC: Normal mood affect and no mental status examination. INVASIVE LINES AND TUBES: Right pleurx catheter present and connected to wall suction, no air leaks present - Labs CBC & Chem 7: 11/26/23 10:08 11/26/23 10:08 Labs: Abnormal Lab Results - Last 24 Hours (Table) 11/25/23 11/25/23 11/25/23 Range/Units 14:41 16:49 20:06 RBC (3.80-5.40) m/uL Hgb (11.4-16.0) gm/dL Hct (34.0-46.0) % MCHC (31.0-37.0) g/dL Plt Count (150-450) k/uL Sodium (137-145) mmol/L Potassium (3.5-5.1) mmol/L Glucose (74-99) mg/dL POC Glucose (mg/dL) 254 H 126 H (70-110) mg/dL Calcium (8.4-10.2) mg/dL Crossmatch See Detail 11/26/23 11/26/23 11/26/23 Range/Units 06:12 10:08 10:08 RBC 2.97 L (3.80-5.40) m/uL Hgb 8.7 L (11.4-16.0) gm/dL Hct 28.5 L (34.0-46.0) % MCHC 30.4 L (31.0-37.0) g/dL Plt Count 575 H (150-450) k/uL Sodium 131 L (137-145) mmol/L Potassium 3.3 L (3.5-5.1) mmol/L Glucose 216 H (74-99) mg/dL POC Glucose (mg/dL) 125 H (70-110) mg/dL Calcium 7.2 L (8.4-10.2) mg/dL Crossmatch 11/26/23 Range/Units 11:49 RBC (3.80-5.40) m/uL Hgb (11.4-16.0) gm/dL Hct (34.0-46.0) % MCHC (31.0-37.0) g/dL Plt Count (150-450) k/uL Sodium (137-145) mmol/L Potassium (3.5-5.1) mmol/L Glucose (74-99) mg/dL POC Glucose (mg/dL) 164 H (70-110) mg/dL Calcium (8.4-10.2) mg/dL Crossmatch Microbiology - Last 24 Hours (Table) 11/25/23 12:34 Gram Stain - Preliminary Sputum 11/24/23 10:30 Gram Stain - Preliminary Pleural Fluid Body Fluid Culture - Preliminary Gram Neg Bacilli Beta Hemolytic Strep Group C 11/24/23 09:45 Blood Culture - Preliminary Blood Assessment and Plan Assessment: Pression: Loculated malignant right-sided pleural effusion, patient has been receiving lytic therapy with success. Acute on chronic shortness of breath secondary to above History of invasive ductal carcinoma of the breast initial diagnosis back in 1998 patient had subsequent tumor recurrence and punch biopsy of the skin confirming invasive ductal carcinoma of the breast Type 2 diabetes maintained on insulin Benign essential hypertension History of hypothyroidism Dyslipidemia Recommendation: Continue Pleurx catheter Patient received her fourth dose of lytic therapy. Alteplase/dornase/yesterday Chest x-ray is showing improvement in her pleural effusion Consider CT of the chest on Tuesday. effusion cultures are negative so far Continue antibiotics empirically again I strongly doubt empyema Will continue to follow Time with Patient: Less than 30
--- NOTE | 2023-11-26 13:56 | XR ---
EXAMINATION TYPE: XR chest 1V portable DATE OF EXAM: 11/26/2023 COMPARISON: 11/25/2023 INDICATION: Effusion TECHNIQUE: Single frontal view of the chest is obtained. FINDINGS: The heart size is normal. The pulmonary vasculature is normal. There is a small to moderate right pleural effusion. Infiltrate is adjacent. Multiple surgical clips are within the right chest wall. Chest tube is present. There is opacification at the right apex. Ple ural fluid may be along the lateral chest wall margin. IMPRESSION: 1. Persistent right pleural effusion may be loculated stable from comparison. 2. Fluid Adjacent infiltrate. Continued follow-up is recommended
[2023-11-26] MEDS: PANTOPRAZOLE 40 MG/10 ML VIAL IVP SCH (14:44)
--- NOTE | 2023-11-26 16:07 | P.PN ---
Subjective Progress Note Date: 11/26/23 Principal diagnosis: Reason for follow-up is fever possible empyema Patient is a 63-year-old female past medical history diabetes mellitus reflux hypertension hyperlipidemia history of right breast cancer patient also have a history of right-sided malignant effusion for the patient did have a previous thoracocentesis done and recently did have a Pleurx catheter placement, patient was in the hospital with increasing shortness of breath right-sided chest pain and did have a fever prompting this consultation. On today's evaluation that is 11/26/2023,the patient denies any fever or any chills, patient is breathing comfortably on room air, the patient right-sided ch est pain has decreased in intensity denies any worsening cough or sputum production no nausea vomiting abdominal pain however complaining of significant diarrhea. Patient white count 7.3, creatinine 0.83 pleural fluid cultures growing gram- negative bacilli Objective - Vital Signs Vital signs: Vital Signs Temp 98.1 F 11/26/23 09:10 Pulse 120 H 11/26/23 11:50 Resp 17 11/26/23 11:50 BP 104/66 11/26/23 11:50 Pulse Ox 97 11/26/23 11:50 FiO2 Intake & Output 11/25/23 11/26/23 11/26/23 18:59 06:59 18:59 Intake Total 850 236 Output Total 1600 Balance -750 236 Weight 58.967 kg Intake: Oral 540 236 Blood Product 310 Rc As-1 Unit 310 [id number] Output: Chest Tube Drainage 1600 Pleural Catheter Right 1600 Anterior Chest Other: Voiding Method Toilet Toilet Toilet # Voids 1 2 3 # Bowel Movements 2 - Exam GENERAL DESCRIPTION: An elderly female lying in bed in no distress RESPIRATORY SYSTEM: Unlabored breathing , decreased breath sounds at bases HEART: S1 S2 regular rate and rhythm , ABDOMEN: Soft , no tenderness EXTREMITIES: No edema feet - Labs CBC & Chem 7: 11/26/23 10:08 11/26/23 10:08 Labs: Abnormal Lab Results - Last 24 Hours (Table) 11/25/23 11/25/23 11/25/23 Range/Units 14:41 16:49 20:06 RBC (3.80-5.40) m/uL Hgb (11.4-16.0) gm/dL Hct (34.0-46.0) % MCHC (31.0-37.0) g/dL Plt Count (150-450) k/uL Sodium (137-145) mmol/L Potassium (3.5-5.1) mmol/L Glucose (74-99) mg/dL POC Glucose (mg/dL) 254 H 126 H (70-110) mg/dL Calcium (8.4-10.2) mg/dL Crossmatch See Detail 11/26/23 11/26/23 11/26/23 Range/Units 06:12 10:08 10:08 RBC 2.97 L (3.80-5.40) m/uL Hgb 8.7 L (11.4-16.0) gm/dL Hct 28.5 L (34.0-46.0) % MCHC 30.4 L (31.0-37.0) g/dL Plt Count 575 H (150-450) k/uL Sodium 131 L (137-145) mmol/L Potassium 3.3 L (3.5-5.1) mmol/L Glucose 216 H (74-99) mg/dL POC Glucose (mg/dL) 125 H (70-110) mg/dL Calcium 7.2 L (8.4-10.2) mg/dL Crossmatch 11/26/23 Range/Units 11:49 RBC (3.80-5.40) m/uL Hgb (11.4-16.0) gm/dL Hct (34.0-46.0) % MCHC (31.0-37.0) g/dL Plt Count (150-450) k/uL Sodium (137-145) mmol/L Potassium (3.5-5.1) mmol/L Glucose (74-99) mg/dL POC Glucose (mg/dL) 164 H (70-110) mg/dL Calcium (8.4-10.2) mg/dL Crossmatch Microbiology - Last 24 Hours (Table) 11/25/23 12:34 Gram Stain - Preliminary Sputum 11/24/23 10:30 Gram Stain - Preliminary Pleural Fluid Body Fluid Culture - Preliminary Gram Neg Bacilli Beta Hemolytic Strep Group C 11/24/23 09:45 Blood Culture - Preliminary Blood Assessment and Plan (1) Fever Current Visit: Yes Status: Acute Code(s): R50.9 - FEVER, UNSPECIFIED SNOMED Code(s): 582424353 (2) Positive blood culture Current Visit: Yes Status: Acute Code(s): R78.81 - BACTEREMIA SNOMED Code(s): 541596335 Plan: 1patient with a fever and leukocytosis in this patient who did have a malignant right-sided effusion for the patient did have Pleurx catheter placement admitted to the hospital with right-sided chest pain and decreased output from her Pleurx catheter s/p alteplase instillation, with the patient developing fever concern for possible pulmonary source 2blood culture has been obtained which is growing coagulase-negative staph likely skin contamination no need for vancomycin, pleural fluid culture growing gram-negative and strep 3developed significant diarrhea possible antibiotic associated will check a stool for C. difficile add Questran for symptomatic relief 4we will continue on Zosyn while waiting for the pleural fluid culture to be finalized Dictation was produced using [email or web address] dictation software. please excuse any grammatical, word or spelling errors. Time with Patient: Less than 30
[2023-11-26 16:42] LABS: Glucose,Whole Blood 133 mg/dL (70-110)
[2023-11-26] MEDS: CHOLESTYRAMINE (WITH SUGAR) 4 GM PACKET PO SCH (17:07)
--- NOTE | 2023-11-26 17:08 | PN ---
PROGRESS NOTE DATE OF SERVICE: 11/26/2023 SUBJECTIVE: This is a 63-year-old woman, who was admitted with recurrent loculated pleural effusion, has on a PleurX drainage and on lytic therapy. The patient has invasive ductal carcinoma history. The patient is today complaining of abdominal pain and some nausea. PAST MEDICAL HISTORY: Reviewed. REVIEW OF SYSTEMS: A 14-point review is negative except as mentioned earlier. CURRENT MEDICATIONS: rest of medications noted. PHYSICAL EXAMINATION: VITAL SIGNS: Pulse 120, blood pressure n, and respirations 17. HEENT: Conjunctivae normal. NECK: No JVD. CARDIOVASCULAR: S1 and S2. RESPIRATIONS: Few scattered rhonchi. ABDOMEN: Soft. NERVOUS SYSTEM: Nonfocal. LABORATORY DATA: Sodium n, potassium 3.6, rest of the labs are noted. ASSESSMENT: 1. Recurrent large right-sided loculated effusion, exudative, possibly malignant, on PleurX drainage and lytic therapy. 2. Fever, possibly right lower lobe pneumonia, possibly gram-negative versus aspiration. 3. Abdominal pain, possible acute gastritis. 4. Recurrent right-sided pleural effusion with recurrent breast cancer. 5. Chronic obstructive pulmonary disease. 6. Hypertension. 7. Hyperlipidemia. 8. Multiple complex medical issues. RECOMMENDATIONS: Recommend to continue current management and replace potassium. Otherwise, continue the antibiotics and Protonix. Cut down the diet. Discussed with the patient symptomatic treatment of pain. Continue the empiric antibiotics and bronchodilators. Monitor blood sugars closely. Prognosis extremely guarded because of multiple complex medical issues. Further recommendations to follow. MMODL / IJN: [id number] / MTDD
[2023-11-26 20:30] LABS: Glucose,Whole Blood 197 mg/dL (70-110)
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
[2023-11-27] MEDS: POTASSIUM CHLORIDE ER 20 MEQ TAB.ER PO SCH (03:04)
[2023-11-27 06:01] LABS: Glucose,Whole Blood 92 mg/dL (70-110)
[2023-11-27] MEDS: PATIENT'S OWN (Semaglutide [Ozempic] 1 MG/0.75 ML Each) SQ SCH (07:28)
--- NOTE | 2023-11-27 09:19 | P.PN ---
Subjective Progress Note Date: 11/27/23 Principal diagnosis: Recurrent large right-sided pleural effusion. History of recurrent right-sided pleural effusion status post right Pleurx catheter placement, breast cancer in 1998 status post lumpectomy and right axillary node dissection as well as radiation therapy and tamoxifen with recurrence of breast cancer status post chemotherapy with last dose in May 2023, hypertension, hyperlipidemia, hypothyroid, diabetes mellitus type II, lifetime non-smoker but exposed to secondhand smoke from her , edible marijuana use The patient was seen and examined this morning with Dr. Anthony laying in bed on the cardiac stepdown unit in no acute distress. She had no lytic instillation yesterday, and no output from her pleurx. Preliminary gram stain of pleural fluid preliminarily growing group c beta hemolytic strep, proteus and presumptive staph, blood cultures preliminarily growing coag neg staph. Remains on IV zosyn. States her breathing feels better, remains on room air, achieving 750 mL on incentive spirometry. Chest x-ray reviewed. Patient wants to go ho me. No other new concerns. Objective - Vital Signs Vital signs: Vital Signs Temp 98.3 F 11/27/23 07:41 Pulse 100 11/27/23 09:00 Resp 20 11/27/23 07:41 BP 92/52 11/27/23 07:41 Pulse Ox 94 L 11/27/23 07:41 FiO2 Intake & Output 11/26/23 11/27/23 11/27/23 18:59 06:59 18:59 Intake Total 236 0 240 Balance 236 0 240 Intake: Oral 236 0 240 Other: Voiding Method Toilet Toilet Toilet # Voids 3 1 # Bowel Movements 2 - Exam CONSTITUTIONAL: Appears comfortable, cooperative, no acute distress RESPIRATORY: Lungs sounds diminished on the right but better daily. Respirations even, nonlabored. Currently on room air with oxygen saturation 94%. Strong cough. Able to achieve 750 mL on incentive spirometry CARDIOVASCULAR: S1, S2 present. Regular rate and rhythm, sinus rhythm on telemetry. Palpable peripheral pulses bilaterally. No edema present. No calf pain or tenderness noted GASTROINTESTINAL: Abdomen soft, nontender, nondistended. Active bowel sounds present 4 quadrants. Tolerating diet. Positive bowel movement. GENITOURINARY: Continues to void INTEGUMENTARY: Skin is warm and dry NEUROLOGIC: Cranial nerves II through XII intact MUSKULOSKELETAL: Able to move all extremities, strength equal bilaterally, gait normal PSYCHIATRIC: Alert and oriented to person place and time, appropriate affect, intact judgment and insight INVASIVE LINES AND TUBES: Right pleurx catheter present and connected to wall suction, no air leaks present, no drainage in the last 24 hours - Allied health notes Allied health notes reviewed: nursing - Labs CBC & Chem 7: 11/26/23 10:08 11/26/23 10:08 Labs: Abnormal Lab Results - Last 24 Hours (Table) 11/26/23 11/26/23 11/26/23 Range/Units 10:08 10:08 11:49 RBC 2.97 L (3.80-5.40) m/uL Hgb 8.7 L (11.4-16.0) gm/dL Hct 28.5 L (34.0-46.0) % MCHC 30.4 L (31.0-37.0) g/dL Plt Count 575 H (150-450) k/uL Sodium 131 L (137-145) mmol/L Potassium 3.3 L (3.5-5.1) mmol/L Glucose 216 H (74-99) mg/dL POC Glucose (mg/dL) 164 H (70-110) mg/dL Calcium 7.2 L (8.4-10.2) mg/dL 11/26/23 11/26/23 Range/Units 16:40 20:28 RBC (3.80-5.40) m/uL Hgb (11.4-16.0) gm/dL Hct (34.0-46.0) % MCHC (31.0-37.0) g/dL Plt Count (150-450) k/uL Sodium (137-145) mmol/L Potassium (3.5-5.1) mmol/L Glucose (74-99) mg/dL POC Glucose (mg/dL) 133 H 197 H (70-110) mg/dL Calcium (8.4-10.2) mg/dL Microbiology - Last 24 Hours (Table) 11/24/23 10:30 Gram Stain - Preliminary Pleural Fluid Body Fluid Culture - Preliminary Proteus vulgaris Beta Hemolytic Strep Group C Presumptive Staph aureus 11/24/23 09:45 Blood Culture - Preliminary Blood 11/25/23 12:34 Gram Stain - Preliminary Sputum - Imaging and Cardiology Chest x-ray: image reviewed Assessment and Plan Assessment: Recurrent large right-sided loculated pleural effusion Shortness of breath, chest pain secondary to above History of recurrent right-sided pleural effusion status post right Pleurx catheter placement 11/08/23 History of breast cancer in 1998 status post lumpectomy and right axillary node dissection as well as radiation therapy and tamoxifen Recurrence of breast cancer status post chemotherapy with last dose in May 2023 Hypertension Hyperlipidemia Hypothyroid Diabetes mellitus type II Lifetime non-smoker but exposed to secondhand smoke from her Edible marijuana use Fever, tachycardia Plan: Will cap pleurx cath, no further drainage Encourage incentive spirometry use Increase activity as tolerated Pain control with current medication regimen Antibiotics per ID Medical management of other comorbidities per internal medicine, pulmonology Will see again on as needed basis, may be dc'd to home on antibiotics when ok with other services
[2023-11-27 10:09] LABS: Basophils # (A) 0.1 k/uL (0-0.2); Basophils % (A) 1 %; Eosinophils # (A) 0.1 k/uL (0-0.7); Eosinophils % (A) 1 %; HCT 30.7 % (34.0-46.0); HGB 9.3 gm/dL (11.4-16.0); Hypochromasia Slight; Lymphocytes # (A) 2.9 k/uL (1.0-4.8); Lymphocytes % (A) 25 %; MCH 29.1 pg (25.0-35.0); MCHC 30.4 g/dL (31.0-37.0); MCV 95.7 fL (80.0-100.0); Mean Platelet Volume 7.6; Monocytes # (A) 0.8 k/uL (0-1.0); Monocytes % (A) 7 %; Neutrophils # (A) 7.3 k/uL (1.3-7.7); Neutrophils % (A) 64 %; Platelet Count 706 k/uL (150-450); RBC 3.21 m/uL (3.80-5.40); RDW 13.6 % (11.5-15.5); WBC 11.5 k/uL (3.8-10.6)
[2023-11-27 10:37] LABS: African American GFR (CKD) 78 (>60 ml/min/1.73 sqM); Anion Gap 9 mmol/L; Blood Urea Nitrogen 10 mg/dL (7-17); Calcium 7.7 mg/dL (8.4-10.2); Carbon Dioxide 23 mmol/L (22-30); Chloride 102 mmol/L (98-107); Glucose 98 mg/dL (74-99); Non-African American GFR(CKD) 68 (>60 ml/min/1.73 sqM); Sodium 134 mmol/L (137-145)
--- NOTE | 2023-11-27 11:17 | XR ---
EXAMINATION TYPE: XR chest 1V portable DATE OF EXAM: 11/27/2023 COMPARISON: 11/26/2023 INDICATION: Fusion TECHNIQUE: Single frontal view of the chest is obtained. FINDINGS: The heart size is normal. The pulmonary vasculature is normal. Opacities in the superior medial right apex. There is small to moderate right pleural effusion. Infi ltrate is adjacent to the pleural effusion. Multiple surgical clips are lateral to the chest. IMPRESSION: 1. Small to moderate pleural effusion. This may be loculated at the apex. 2. Infiltrate adjacent to the pleural effusion. Correlate for atelectasis or pneumonia. Continued fol low-up is recommended.
[2023-11-27 11:36] LABS: Glucose,Whole Blood 120 mg/dL (70-110)
[2023-11-27] MEDS ORDERED: RX INFO: IV CONTRAST WAS GIVEN 1 EACH MISC MISCELLANE PRN (13:25)
--- NOTE | 2023-11-27 13:25 | P.PN ---
Subjective Progress Note Date: 11/27/23 Principal diagnosis: Right pleural effusion/malignant I saw this patient in the emergency department for shortness of breath. The patient is known to have a loculated right-sided pleural effusion and the patient has undergone a Pleurx catheter insertion and the catheter was inserted by thoracic surgery on 11/08/2023. The patient was getting good output from the Pleurx catheter and output had dropped and the last drainage was around 4 days ago and output had dropped down to 300 cc. She came in for shortness of breath. I attempted to drain the pleural fluid in the emergency department through the Pleurx catheter and there was no output. Based on that, I made recommendations to obtain a CAT scan of the chest. The chest x-ray was reviewed and the patient has a loculated right-sided pleural effusion and Pleurx catheter is directed towards the lung apex. Note that the patient has recurrent right-sided pleural effusion that was thought to be malignant although this has not been proven. She has history of metastatic breast cancer. I initially drained this patient on 10/27/2019 for a total of 2.2 L of pleural fluid was aspirated from the right lung and this was exudative with an elevated LDH and the fluid cytology was negative. Subsequently, the patient Pleurx catheter. The pleural fluid was analyzed and was again negative for malignancy.. Nevertheless, the patient is known to have w metastatic disease. The patient is known to have hormone positive HER2/sarah right-sided breast cancer and she has undergone previous lumpectomy and axillary node dissection back in 1998 followed by radiation therapy and tamoxifen. She prese was subsequently found to have invasive ductal carcinoma of the right breast biopsy showing grade 3 invasive ductal carcinoma and diagnosed with established by a punch biopsy of the skin. PET scan that was done on 12/12/2022 showed an abnormal doubling activity in the breast corresponding to the cancer. She is also known to have diabetes mellitus type 2, hyperlipidemia and hypothyroidism. At this point in time, the patient is on room air oxygen. No fever. No chills. No cough or sputum production. Blood work is essentially within normal limits. proBNP level is not elevated. The patient is maintained on Lantus insulin on outpatient basis in addition to Ozempic. She is also on metformin. The patient is seen today November 21, 2023 in follow-up on the regular medical floor. She is currently sitting up in bed. Awake and alert in no acute distress. She is maintaining good O2 saturations in the 90s on room air. She has been afebrile. Hemodynamically stable. Denies any worsening shortness of breath, cough or congestion. CT scan of the chest revealed a stable right-sided large pleural effusion and pleural nodularity. Drainage catheter terminating in the right lung apex. Mediastinal adenopathy. Small pericardial effusion. Healing right rib fractures. Glucose 169. The patient is seen today November 22, 2023 in follow-up on the regular medical floor. She is awake and alert in no acute distress. Maintaining O2 saturations in the 90s on room air. Glucose 162. She did receive alteplase/dornase in jection through the Pleurx catheter today and had over 1 L drained to the Pleur- evac which is connected to continuous low wall suction -20 cm of water. Follow- up chest x-ray for tomorrow. The patient is seen today November 23, 2023 in follow-up on the regular medical floor. She is currently sitting up in bed. Awake and alert in no acute distress. Breathing easier today compared to yesterday. She did have approximately 2 L of fluid out of her Pleurx catheter following the alteplase/dornase infusion. Today's chest x-ray still shows significant effusion and loculation. Plan is for additional alteplase/dornase infusion per CT services again today. Follow-up chest x-ray tomorrow. Glucose 191. Patient was reevaluated today on 11/24/2023, patient is doing well, patient had lytic instilled into her right Pleurx catheter yesterday and 1400 cc of fluid was evacuated. Today she is feeling a bit better, breathing easier, remains on few liters nasal cannula, does not seem to be in any distress. Cultures on the fluid are pending, strongly doubt infection but nonetheless the patient is on Zosyn empirically. Her fluid has been malignant. WBC count today is 9.4 hemoglobin is 9 basic metabolic profile is normal renal profile is normal Reevaluate today on 11/25/2023, patient is doing well, continues to do well, patient had another lytic therapy instilled to her right Pleurx catheter today. Patient is doing well, feeling better, breathing easier WBC count is 9.8 hemoglobin 7.3 basic metabolic profile is normal, blood cultures came back positive for coagulase-negative staph,/contamination, pleural effusion fluid is negative for infection Reevaluate today on 11/26/23, patient continues to do well, continues to have lytic treatment, her chest x-ray is showing definite improvement in her right- sided pleural effusion which was loculated. Patient had her fourth dose of lytic treatment instilled in the right Pleurx catheter yesterday, continues to drain in the Pleur-evac. CBC today is normal basic metabolic profile is normal potassium is low at 3.3, Patient did receive a unit of packed RBCs for low hemoglobin yesterday Reevaluate today on 11/27/2023, patient is doing well, no lytic instillation was done yesterday, no output from her Pleurx catheter today, her pleural effusion came back positive for Proteus vulgaris, beta-hemolytic strep group C, and presumptive Staph aureus, patient is receiving Zosyn, now that the cultures are showing possible MRSA, may have to broaden the spectrum of antibiotics coverage, and that being addressed by infectious disease on the case, and now looks like we are dealing with definite empyema picture probably in the right pleural space considering the findings, may have to consider placing that Pleurx catheter back on suction and connected to Pleur-evac for drainage. Patient is afebrile, she is on room air, O2 sats is 96% Objective - Vital Signs Vital signs: Vital Signs Temp 98.2 F 11/27/23 11:14 Pulse 104 H 11/27/23 11:14 Resp 20 11/27/23 11:14 BP 97/62 11/27/23 11:14 Pulse Ox 96 11/27/23 11:14 FiO2 Intake & Output 11/26/23 11/27/23 11/27/23 18:59 06:59 18:59 Intake Total 236 0 240 Output Total 0 Balance 236 0 240 Intake: Oral 236 0 240 Output: Chest Tube Drainage 0 Pleural Catheter Right 0 Anterior Chest Other: Voiding Method Toilet Toilet Toilet # Voids 3 1 # Bowel Movements 2 - Exam CONSTITUTIONAL: Reveals 63-year-old female in no distress RESPIRATORY: Diminished breath sounds at the right side, relatively clear on the left side. CARDIOVASCULAR: normal S1-S2, no S3 gallop, no murmur. GASTROINTESTINAL: Soft nontender no megaly no rebound INTEGUMENTARY: No rashes NEUROLOGIC: Alert oriented x 3 no gross focal deficit MUSKULOSKELETAL: No deformities and no limitation range of motion PSYCHIATRIC: Normal mood affect and no mental status examination. INVASIVE LINES AND TUBES: Right pleurx catheter was disconnected earlier by thoracic surgery from. Pleur-evac - Labs CBC & Chem 7: 11/27/23 08:31 11/27/23 08:31 Labs: Abnormal Lab Results - Last 24 Hours (Table) 11/26/23 11/26/23 11/27/23 Range/Units 16:40 20:28 08:31 WBC 11.5 H (3.8-10.6) k/uL RBC 3.21 L (3.80-5.40) m/uL Hgb 9.3 L (11.4-16.0) gm/dL Hct 30.7 L (34.0-46.0) % MCHC 30.4 L (31.0-37.0) g/dL Plt Count 706 H (150-450) k/uL Sodium (137-145) mmol/L POC Glucose (mg/dL) 133 H 197 H (70-110) mg/dL Calcium (8.4-10.2) mg/dL 11/27/23 11/27/23 Range/Units 08:31 11:32 WBC (3.8-10.6) k/uL RBC (3.80-5.40) m/uL Hgb (11.4-16.0) gm/dL Hct (34.0-46.0) % MCHC (31.0-37.0) g/dL Plt Count (150-450) k/uL Sodium 134 L (137-145) mmol/L POC Glucose (mg/dL) 120 H (70-110) mg/dL Calcium 7.7 L (8.4-10.2) mg/dL Microbiology - Last 24 Hours (Table) 11/25/23 12:34 Gram Stain - Final Sputum Sputum Culture - Final 11/24/23 10:30 Gram Stain - Preliminary Pleural Fluid Body Fluid Culture - Preliminary Proteus vulgaris Beta Hemolytic Strep Group C Presumptive Staph aureus 11/24/23 09:45 Blood Culture - Preliminary Blood Assessment and Plan Assessment: Pression: Loculated right-sided pleural effusion, patient has been receiving lytic therapy with success. Patient has been receiving antibiotics, may require broadening the spectrum and may require vancomycin to be added considering that the patient may have MRSA positive cultures and the pleural effusion. In retrospect, looking back at the different cytologies from the pleural effusion, none of them confirmed malignancy. Acute on chronic shortness of breath secondary to above History of invasive ductal carcinoma of the breast initial diagnosis back in 1998 patient had subsequent tumor recurrence and punch biopsy of the skin confirming invasive ductal carcinoma of the breast Type 2 diabetes maintained on insulin Benign essential hypertension History of hypothyroidism Dyslipidemia Right-sided empyema Recommendation: Continue Pleurx catheter, may have to be connected to Pleur-evac again Factious disease to address broadening the spectrum of antibiotics. Chest x-ray is showing improvement in her pleural effusion Consider CT of the chest on Tuesday. effusion cultures are showing polymicrobial infection, and again infectious disease to address accordingly Will arrange for CT of the chest in a.m. Will continue to follow Time with Patient: Less than 30
--- NOTE | 2023-11-27 15:47 | P.PN ---
Subjective Progress Note Date: 11/27/23 Principal diagnosis: Reason for follow-up is fever possible empyema Patient is a 63-year-old female past medical history diabetes mellitus reflux hypertension hyperlipidemia history of right breast cancer patient also have a history of right-sided malignant effusion for the patient did have a previous thoracocentesis done and recently did have a Pleurx catheter placement, patient was in the hospital with increasing shortness of breath right-sided chest pain and did have a fever prompting this consultation. On today's evaluation that is 11/27/2023,the patient remains to be afebrile, patient is on room air not requiring supplemental oxygen and denies any shortnes s of breath and did have improvement in her chest pain denies significant cough.Patient denies having any nausea or vomiting, no abdominal pain and did have some diarrhea however stool for C. difficile negative Patient white count of 11.5, creatinine 0.90, cultures currently growing Proteus strep and Staph aureus Objective - Vital Signs Vital signs: Vital Signs Temp 98.1 F 11/27/23 15:04 Pulse 104 H 11/27/23 15:40 Resp 20 11/27/23 15:04 BP 102/64 11/27/23 15:04 Pulse Ox 97 11/27/23 15:04 FiO2 Intake & Output 11/26/23 11/27/23 11/27/23 18:59 06:59 18:59 Intake Total 236 0 480 Output Total 0 Balance 236 0 480 Intake: Oral 236 0 480 Output: Chest Tube Drainage 0 Pleural Catheter Right 0 Anterior Chest Other: Voiding Method Toilet Toilet Toilet # Voids 3 1 2 # Bowel Movements 2 1 - Exam GENERAL DESCRIPTION: An elderly female lying in bed in no distress RESPIRATORY SYSTEM: Unlabored breathing , decreased breath sounds at bases HEART: S1 S2 regular rate and rhythm , ABDOMEN: Soft , no tenderness EXTREMITIES: No edema feet - Labs CBC & Chem 7: 11/27/23 08:31 11/27/23 08:31 Labs: Abnormal Lab Results - Last 24 Hours (Table) 11/26/23 11/26/23 11/27/23 Range/Units 16:40 20:28 08:31 WBC 11.5 H (3.8-10.6) k/uL RBC 3.21 L (3.80-5.40) m/uL Hgb 9.3 L (11.4-16.0) gm/dL Hct 30.7 L (34.0-46.0) % MCHC 30.4 L (31.0-37.0) g/dL Plt Count 706 H (150-450) k/uL Sodium (137-145) mmol/L POC Glucose (mg/dL) 133 H 197 H (70-110) mg/dL Calcium (8.4-10.2) mg/dL 11/27/23 11/27/23 Range/Units 08:31 11:32 WBC (3.8-10.6) k/uL RBC (3.80-5.40) m/uL Hgb (11.4-16.0) gm/dL Hct (34.0-46.0) % MCHC (31.0-37.0) g/dL Plt Count (150-450) k/uL Sodium 134 L (137-145) mmol/L POC Glucose (mg/dL) 120 H (70-110) mg/dL Calcium 7.7 L (8.4-10.2) mg/dL Microbiology - Last 24 Hours (Table) 11/23/23 21:54 Blood Culture Gram Stain - Final Blood Blood Culture - Final Coagulase Negative Staph 11/25/23 12:34 Gram Stain - Final Sputum Sputum Culture - Final 11/24/23 10:30 Gram Stain - Preliminary Pleural Fluid Body Fluid Culture - Preliminary Proteus vulgaris Beta Hemolytic Strep Group C Presumptive Staph aureus 11/24/23 09:45 Blood Culture - Preliminary Blood Assessment and Plan (1) Fever Current Visit: Yes Status: Acute Code(s): R50.9 - FEVER, UNSPECIFIED SNOMED Code(s): 960858032 (2) Positive blood culture Current Visit: Yes Status: Acute Code(s): R78.81 - BACTEREMIA SNOMED Code(s): 350871091 Plan: 1patient with a fever and leukocytosis in this patient who did have a malignant right-sided effusion for the patient did have Pleurx catheter placement admitted to the hospital with right-sided chest pain and decreased output from her Pleurx catheter s/p alteplase instillation, with the patient developing fever concern for possible pulmonary source 2blood culture has been obtained which is growing coagulase-negative staph likely skin contamination no need for vancomycin, pleural fluid culture growing Proteus strep and Staph aureus 3developed significant diarrhea possible antibiotic associated stool for C. difficile is negative, patient to continue with Questran for symptomatic relief 4we will continue on Zosyn while waiting for the pleural fluid culture to be finalized to determine her discharge antibiotics Dictation was produced using [employer] dictation software. please excuse any grammatical, word or spelling errors. Time with Patient: Less than 30
[2023-11-27 16:28] LABS: Glucose,Whole Blood 216 mg/dL (70-110)
[2023-11-27 19:57] LABS: Glucose,Whole Blood 153 mg/dL (70-110)
--- NOTE | 2023-11-28 02:59 | PN ---
PROGRESS NOTE DATE OF SERVICE: 11/27/2023 SUBJECTIVE: This is a 63-year-old woman, who was admitted with recurrent loculated pleural effusion, also has pneumonia and chest tube is removed. No chest pain. No palpitations. No fever. The most recent chest x-ray, which I reviewed personally showed some opacities on the right side. OBJECTIVE: VITAL SIGNS: Pulse is 104, blood pressure 97/62, respirations 20. CHEST: A few scattered rhonchi and crackles. ABDOMEN: Soft. NERVOUS SYSTEM: No focal deficits. LABORATORY DATA: Reviewed. ASSESSMENT: 1. Recurrent large right-sided loculated effusion, exudative, possibly malignant, was on PleurX drainage with lytic therapy. 2. Fever, possibly right lower pneumonia, possibly gram-negative. 3. Abdominal pain, possible acute gastritis, improved. 4. Recurrent right-sided pleural effusion with recurrent breast cancer. 5. Chronic obstructive pulmonary disease. 6. Hypertension. 7. Multiple medical issues. RECOMMENDATIONS AND DISCUSSION: Recommend to continue the antibiotics. Continue with bronchodilators. Closely follow with Pulmonary. Dr. Caicedo will follow tomorrow. Prognosis guarded. MMODL / IJN: [id number] /
[2023-11-28 05:50] LABS: Glucose,Whole Blood 118 mg/dL (70-110)
--- NOTE | 2023-11-28 09:15 | CT ---
EXAMINATION TYPE: CT chest w con DATE OF EXAM: 11/28/2023 COMPARISON: 11/20/2023 HISTORY: Right sided empyema CT DLP: 174.7 mGycm Automated exposure control for dose reduction was used. CONTRAST: CT scan of the chest is performed with IV Contrast, patient injected with 100 mL of Isovue 300. FINDINGS: LUNGS: Direct comparison is difficult given lack of contrast on prior examination. Loculated pleural collections persist with the largest seen within the right apical region measuring 5.9 x 5.0 cm versu s 5.9 x 5.4 cm. Midlung component persists with internal air however appears smaller in size with lar gest midline component measuring 6.5 x 4.0 cm versus 10.8 x 6.1 cm. Right basilar component currently measures approximately 7.2 x 5.2 cm versus prior measurement of approximately 12.5 x 9.2 cm. Right-s ided chest tube remains in place. There is associated right sided pleural parenchymal opacity. Hyperi nflation of the left lung which is clear this time. MEDIASTINUM: There are no greater than 1 cm hilar or mediastinal lymph nodes. No pericardial effusi on is seen. Thoracic aorta is of normal caliber. The heart is not enlarged. UPPER ABDOMEN: No significant abnormality appreciated. OTHER: No additional significant abnormality is seen. IMPRESSION: 1. Findings compatible with loculated empyema of the right pleural space. Loculated collections persi st although are smaller in size as discussed above. Scattered pleural parenchymal opacity throughout the right lung. Right-sided chest tube in place.
[2023-11-28 10:49] LABS: HIV-1 RNA Not detected (Not detected)
[2023-11-28 11:26] LABS: Glucose,Whole Blood 180 mg/dL (70-110)
--- NOTE | 2023-11-28 12:35 | P.PN ---
Subjective HISTORY OF PRESENT ILLNESS: 11/27/2023 63-year-old with PMH of type 2 diabetes, hypertension, recurrent right-sided pleural effusion suspected to be from malignant breast metastatic cancer. Recurrent large right-sided pleural effusion. History of recurrent right-sided pleural effusion status post right Pleurx catheter placement, breast cancer in 1998 status post lumpectomy and right axillary node dissection as well as radiation therapy and tamoxifen with recurrence of breast cancer status post chemotherapy with last dose in May 2023, hypertension, hyperlipidemia, hypothyroid, diabetes mellitus type II, lifetime non-smoker but exposed to secondhand smoke from her , edible marijuana use Previously patient has had problems with sinus tachycardia. Previously we have not found any evidence of atrial fibrillation while patient was hospitalized and was monitored on telemetry. This time cardiology was consulted again because patient was noticed to be in tachycardic rhythm when she would exert with heart rate going into 150s. On detailed review of her telemetry it appears to be sinus tachycardia with no concerns of atrial fibrillation at this time. 11/28/2023 Patient examined this morning at the bedside. Patient denies any chest pain or pressure. She states her shortness of breath is at her baseline. She denies any dizziness or lightheadedness. Telemetry reveals sinus tachycardia with heart rate around [id number]. Vital signs are stable. She is hoping to be discharged home today. PHYSICAL EXAM: VITAL SIGNS: Reviewed. GENERAL: Well-developed in no acute distress. NECK: Supple. No JVD or thyromegaly LUNGS: Respirations even and unlabored. Lungs essentially clear to auscultation bilaterally. HEART: Regular rate and rhythm. S1 and S2 heard. EXTREMITIES: Normal range of motion. No clubbing or cyanosis. Peripheral pulses intact. No lower extremity edema ASSESSMENT: Sinus tachycardia, likely physiological Loculated right-sided pleural effusion Acute on chronic shortness of breath Invasive ductal carcinoma of the breast Hypertension Hyperlipidemia Diabetes PLAN: Continue current cardiac medications Patient is stable for discharge home today from a cardiac standpoint She is to follow-up postdischarge with Dr. Higginbotham Nurse practitioner note has been reviewed by physician. Signing provider agrees with the documented findings, assessment, and plan of care documented by PRISON OFFICER as a scribe. Objective - Vital Signs Vital signs: Vital Signs Temp 98.1 F 11/28/23 08:57 Pulse 82 11/28/23 11:38 Resp 15 11/28/23 11:38 BP 90/45 11/28/23 11:38 Pulse Ox 98 11/28/23 09:57 FiO2 Intake & Output 11/27/23 11/28/23 11/28/23 18:59 06:59 18:59 Intake Total 840 540 Output Total 0 Balance 840 540 Intake: Oral 840 540 Output: Chest Tube Drainage 0 Pleural Catheter Right 0 Anterior Chest Other: Voiding Method Toilet Toilet Toilet # Voids 2 1 # Bowel Movements 1 - Labs CBC & Chem 7: 11/27/23 08:31 11/27/23 08:31 Labs: Abnormal Lab Results - Last 24 Hours (Table) 11/27/23 11/27/23 11/28/23 Range/Units 16:27 19:55 05:48 POC Glucose (mg/dL) 216 H 153 H 118 H (70-110) mg/dL 11/28/23 Range/Units 11:25 POC Glucose (mg/dL) 180 H (70-110) mg/dL Microbiology - Last 24 Hours (Table) 11/26/23 10:08 Blood Culture - Preliminary Blood 11/24/23 10:30 Anaerobic Culture - Preliminary Pleural Fluid 11/24/23 10:30 Gram Stain - Final Pleural Fluid Body Fluid Culture - Final Proteus vulgaris Beta Hemolytic Strep Group C Staphylococcus aureus 11/24/23 09:45 Blood Culture - Preliminary Blood 11/23/23 21:54 Blood Culture Gram Stain - Final Blood Blood Culture - Final Coagulase Negative Staph 11/25/23 12:34 Gram Stain - Final Sputum Sputum Culture - Final
--- NOTE | 2023-11-28 13:23 | P.PN ---
Subjective Progress Note Date: 11/28/23 Principal diagnosis: Pleural effusion. I saw this patient in the emergency department for shortness of breath. The patient is known to have a loculated right-sided pleural effusion and the patient has undergone a Pleurx catheter insertion and the catheter was inserted by thoracic surgery on 11/08/2023. The patient was getting good output from the Pleurx catheter and output had dropped and the last drainage was around 4 days ago and output had dropped down to 300 cc. She came in for shortness of breath. I attempted to drain the pleural fluid in the emergency department through the Pleurx catheter and there was no output. Based on that, I made recommendations to obtain a CAT scan of the chest. The chest x-ray was reviewed and the patient has a loculated right-sided pleural effusion and Pleurx catheter is directed towards the lung apex. Note that the patient has recurrent right-sided pleural effusion that was thought to be malignant although this has not been proven. She has history of metastatic breast cancer. I initially drained this patient on 10/27/2019 for a total of 2.2 L of pleural fluid was aspirated from the right lung and this was exudative with an elevated LDH and the fluid cytology was negative. Subsequently, the patient Pleurx catheter. The pleural fluid was analyzed and was again negative for malignancy.. Nevertheless, the patient is known to have w metastatic disease. The patient is known to have hormone positive HER2/sarah right-sided breast cancer and she has undergone previous lumpectomy and axillary node dissection back in 1998 followed by radiation therapy and tamoxifen. She prese was subsequently found to have invasive ductal carcinoma of the right breast biopsy showing grade 3 invasive ductal carcinoma and diagnosed with established by a punch biopsy of the skin. PET scan that was done on 12/12/2022 showed an abnormal doubling activity in the breast corresponding to the cancer. She is also known to have diabetes mellitus type 2, hyperlipidemia and hypothyroidism. At this point in time, the patient is on room air oxygen. No fever. No chills. No cough or sputum production. Blood work is essentially within normal limits. proBNP level is not elevated. The patient is maintained on Lantus insulin on outpatient basis in addition to Ozempic. She is also on metformin. The patient is seen today November 21, 2023 in follow-up on the regular medical floor. She is currently sitting up in bed. Awake and alert in no acute distress. She is maintaining good O2 saturations in the 90s on room air. She has been afebrile. Hemodynamically stable. Denies any worsening shortness of breath, cough or congestion. CT scan of the chest revealed a stable right-sided large pleural effusion and pleural nodularity. Drainage catheter terminating in the right lung apex. Mediastinal adenopathy. Small pericardial effusion. Healing right rib fractures. Glucose 169. The patient is seen today November 22, 2023 in follow-up on the regular medical floor. She is awake and alert in no acute distress. Maintaining O2 saturations in the 90s on room air. Glucose 162. She did receive alteplase/dornase injection through the Pleurx catheter today and had over 1 L drained to the Pleur-evac which is connected to continuous low wall suction -20 cm of water. Follow-up chest x-ray for tomorrow. The patient is seen today November 23, 2023 in follow-up on the regular medical floor. She is currently sitting up in bed. Awake and alert in no acute distress. Breathing easier today compared to yesterday. She did have appro ximately 2 L of fluid out of her Pleurx catheter following the alteplase/dornase infusion. Today's chest x-ray still shows significant effusion and loculation. Plan is for additional alteplase/dornase infusion per CT services again today. Follow-up chest x-ray tomorrow. Glucose 191. Patient was reevaluated today on 11/24/2023, patient is doing well, patient had lytic instilled into her right Pleurx catheter yesterday and 1400 cc of fluid was evacuated. Today she is feeling a bit better, breathing easier, remains on few liters nasal cannula, does not seem to be in any distress. Cultures on the fluid are pending, strongly doubt infection but nonetheless the patient is on Zosyn empirically. Her fluid has been malignant. WBC count today is 9.4 hemoglobin is 9 basic metabolic profile is normal renal profile is normal Reevaluate today on 11/25/2023, patient is doing well, continues to do well, patient had another lytic therapy instilled to her right Pleurx catheter today. Patient is doing well, feeling better, breathing easier WBC count is 9.8 hemoglobin 7.3 basic metabolic profile is normal, blood cultures came back positive for coagulase-negative staph,/contamination, pleural effusion fluid is negative for infection Reevaluate today on 11/26/23, patient continues to do well, continues to have lytic treatment, her chest x-ray is showing definite improvement in her right-sided pleural effusion which was loculated. Patient had her fourth dose of lytic treatment instilled in the right Pleurx catheter yesterday, continues to drain in the Pleur-evac. CBC today is normal basic metabolic profile is normal potassium is low at 3.3, Patient did receive a unit of packed RBCs for low hemoglobin yesterday Reevaluate today on 11/27/2023, patient is doing well, no lytic instillation was done yesterday, no output from her Pleurx catheter today, her pleural effusion came back positive for Proteus vulgaris, beta-hemolytic strep group C, and presumptive Staph aureus, patient is receiving Zosyn, now that the cultures are showing possible MRSA, may have to broaden the spectrum of antibiotics coverage, and that being addressed by infectious disease on the case, and now looks like we are dealing with definite empyema picture probably in the right pleural space considering the findings, may have to consider placing that Pleurx catheter back on suction and connected to Pleur-evac for drainage. Patient is afebrile, she is on room air, O2 sats is 96% Progress note dated November 28, 2023. The patient was seen today in room 359. Currently, she is on room air. She has a right Pleurx catheter in place. Cultures revealed evidence of Proteus vulgaris, group C streptococci, and Staph aureus. The patient is currently on Zosyn. She seems to be resting relatively comfortably. No new labs today. Her glucose today is 180. She was tested for C. difficile, and it was negative. A chest CT, revealed evidence of loculated empyema of the right pleural space, which are smaller in size. Objective - Vital Signs Vital signs: Vital Signs Temp 98.1 F 11/28/23 08:57 Pulse 90 11/28/23 13:15 Resp 15 11/28/23 11:38 BP 90/45 11/28/23 11:38 Pulse Ox 98 11/28/23 09:57 FiO2 Intake & Output 11/27/23 11/28/23 11/28/23 18:59 06:59 18:59 Intake Total 840 540 Output Total 0 Balance 840 540 Intake: Oral 840 540 Output: Chest Tube Drainage 0 Pleural Catheter Right 0 Anterior Chest Other: Voiding Method Toilet Toilet Toilet # Voids 2 1 # Bowel Movements 1 - Exam No acute distress, oriented 3. No respiratory distress. Currently on room air. HEENT examination is grossly unremarkable. Mucous membranes are moist. No oral lesions. Neck supple. Full range of motion. No adenopathy thyromegaly or neck vein distention. Cardiovascular examination reveals regular rhythm rate. S1-S2 normal. No S3 or S4. No discernible murmur noted. Heart rate 90 bpm. Heart sounds are distant. Lungs reveal diminished breath sounds on the right. Left breath sounds are re latively clear. Minimal scattered rhonchi. Room air saturation 98%. Abdomen soft bowel sounds are heard. No masses or tenderness. Extremities are intact. No cyanosis clubbing or edema. Skin is without rash or lesion. Neurologic examination is brief but nonfocal. - Labs CBC & Chem 7: 11/27/23 08:31 11/27/23 08:31 Labs: Abnormal Lab Results - Last 24 Hours (Table) 11/27/23 11/27/23 11/28/23 Range/Units 16:27 19:55 05:48 POC Glucose (mg/dL) 216 H 153 H 118 H (70-110) mg/dL 11/28/23 Range/Units 11:25 POC Glucose (mg/dL) 180 H (70-110) mg/dL Microbiology - Last 24 Hours (Table) 11/26/23 10:08 Blood Culture - Preliminary Blood 11/24/23 10:30 Anaerobic Culture - Preliminary Pleural Fluid 11/24/23 10:30 Gram Stain - Final Pleural Fluid Body Fluid Culture - Final Proteus vulgaris Beta Hemolytic Strep Group C Staphylococcus aureus 11/24/23 09:45 Blood Culture - Preliminary Blood 11/23/23 21:54 Blood Culture Gram Stain - Final Blood Blood Culture - Final Coagulase Negative Staph 11/25/23 12:34 Gram Stain - Final Sputum Sputum Culture - Final Assessment and Plan Assessment: Loculated right-sided pleural effusion, S/P Pleurx catheter placement. Pleural fluid positive for Proteus vulgaris, group C streptococci, and Staphylococcus aureus. Acute on chronic shortness of breath, secondary to right-sided effusion. History of invasive ductal carcinoma of the breast. Type 2 diabetes mellitus. Benign essential hypertension. History of hypothyroidism. Hyperlipidemia. Right-sided empyema. Plan: Plan dated November 28, 2023. On today's CT scan, the loculated effusion on the right, appears to be smaller. The patient continues on room air. She also continues on Zosyn, for her infection. Labs, x-rays, and medications are reviewed. Clinically, the patient is stable. She is not manifesting any signs or symptoms of respiratory difficulty. There is no conversational dyspnea, or use of accessory muscles. We will continue to follow, and make recommendations along the way. Time with Patient: Less than 30
--- NOTE | 2023-11-28 14:04 | XR ---
EXAMINATION TYPE: XR chest 1V portable DATE OF EXAM: 11/24/2023 6:58 AM CLINICAL INDICATION:Female, 63 years old with history of right effusion; [facility] COMPARISON: Chest radiographs from 11/23/2023 TECHNIQUE: XR chest 1V portable Frontal view of the chest. FINDINGS: Lungs/Pleura: Right pleural effusion appears much smaller but still very large. No pneumothorax. Patc hy airspace disease right lower lobe. Pulmonary vascularity: Unremarkable. Heart/mediastinum: Cardiomediastinal silhouette is unremarkable. Musculoskeletal: No acute osseous pathology. Other findings: None Lines/Tubes: IMPRESSION: Smaller but still very large right pleural effusion.
--- NOTE | 2023-11-28 15:33 | P.PN ---
Subjective Progress Note Date: 11/28/23 Principal diagnosis: Reason for follow-up is fever possible empyema Patient is a 63-year-old female past medical history diabetes mellitus reflux hypertension hyperlipidemia history of right breast cancer patient also have a history of right-sided malignant effusion for the patient did have a previous thoracocentesis done and recently did have a Pleurx catheter placement, patient was in the hospital with increasing shortness of breath right-sided chest pain and did have a fever prompting this consultation. On today's evaluation that is 11/28/2023, the patient continues to be afebrile, the patient is on room air and breathing comfortably, the Pt denies having any chest pain or worsening cough, the patient denies having any abdominal pain no vomiting or any worsening diarrhea No new labs obtained today CT of the chest concerning for loculated empyema but decreased in size cultures with Proteus strep and MSSA Objective - Vital Signs Vital signs: Vital Signs Temp 98.1 F 11/28/23 08:57 Pulse 94 11/28/23 13:02 Resp 15 11/28/23 11:38 BP 90/45 11/28/23 11:38 Pulse Ox 98 11/28/23 09:57 FiO2 Intake & Output 11/27/23 11/28/23 11/28/23 18:59 06:59 18:59 Intake Total 840 540 Output Total 0 Balance 840 540 Intake: Oral 840 540 Output: Chest Tube Drainage 0 Pleural Catheter Right 0 Anterior Chest Other: Voiding Method Toilet Toilet Toilet # Voids 2 1 # Bowel Movements 1 - Exam GENERAL DESCRIPTION: An elderly female lying in bed in no distress RESPIRATORY SYSTEM: Unlabored breathing , decreased breath sounds at bases HEART: S1 S2 regular rate and rhythm , ABDOMEN: Soft , no tenderness EXTREMITIES: No edema feet - Labs CBC & Chem 7: 11/27/23 08:31 11/27/23 08:31 Labs: Abnormal Lab Results - Last 24 Hours (Table) 11/27/23 11/27/23 11/28/23 Range/Units 16:27 19:55 05:48 POC Glucose (mg/dL) 216 H 153 H 118 H (70-110) mg/dL 11/28/23 Range/Units 11:25 POC Glucose (mg/dL) 180 H (70-110) mg/dL Microbiology - Last 24 Hours (Table) 11/26/23 10:08 Blood Culture - Preliminary Blood 11/24/23 10:30 Anaerobic Culture - Preliminary Pleural Fluid 11/24/23 10:30 Gram Stain - Final Pleural Fluid Body Fluid Culture - Final Proteus vulgaris Beta Hemolytic Strep Group C Staphylococcus aureus 11/24/23 09:45 Blood Culture - Preliminary Blood 11/23/23 21:54 Blood Culture Gram Stain - Final Blood Blood Culture - Final Coagulase Negative Staph 11/25/23 12:34 Gram Stain - Final Sputum Sputum Culture - Final Assessment and Plan (1) Fever Current Visit: Yes Status: Acute Code(s): R50.9 - FEVER, UNSPECIFIED SNOMED Code(s): 348362821 (2) Positive blood culture Current Visit: Yes Status: Acute Code(s): R78.81 - BACTEREMIA SNOMED Code(s): 646366665 Plan: 1patient with a fever and leukocytosis in this patient who did have a malignant right-sided effusion for the patient did have Pleurx catheter placement admitted to the hospital with right-sided chest pain and decreased output from her Pleurx catheter s/p alteplase instillation, with the patient developing fever concern for possible pulmonary source 2blood culture has been obtained which is growing coagulase-negative staph likely skin contamination no need for vancomycin, pleural fluid culture growing Proteus strep and Staph aureus 3developed significant diarrhea possible antibiotic associated stool for C. difficile is negative, patient to continue with Questran for symptomatic relief 4we will discontinue Zosyn start the patient on Rocephin 2 g daily that will help with the diarrhea as well keeping in mind loculated empyema will benefit from surgical intervention plus outpatient IV and by therapy Dictation was produced using [employer] dictation software. please excuse any grammatical, word or spelling errors. Time with Patient: Less than 30
[2023-11-28 16:47] LABS: Glucose,Whole Blood 134 mg/dL (70-110)
[2023-11-28 20:09] LABS: Glucose,Whole Blood 166 mg/dL (70-110)
[2023-11-29 05:58] LABS: Glucose,Whole Blood 116 mg/dL (70-110)
--- NOTE | 2023-11-29 09:48 | PN ---
PROGRESS NOTE DATE OF SERVICE: 11/28/2023 SUBJECTIVE: This is a 63-year-old woman, who was admitted with recurrent pleural effusion, had lytic therapy on the right side. The pleural fluid is growing multiple organisms. The patient also had evidence of pneumonia. Also, the patient is on broad-spectrum IV antibiotics. No chest pain. No palpitation. OBJECTIVE: VITAL SIGNS: On exam, pulse is 82, blood pressure is 90/45, and respirations 15. CHEST: Few scattered rhonchi and crackles. ABDOMEN: Soft. NERVOUS SYSTEM: Nonfocal. LABORATORY DATA: Accu-Cheks noted. Otherwise, cultures noted. ASSESSMENT: 1. Recurrent large right-sided loculated effusion. 2. Sedated, possibly malignant, on PleurX drainage and lytic therapy. 3. Multiple organisms from the pleural fluid to rule out empyema, Proteus vulgaris, beta-hemolytic Streptococcus group C and Staphylococcus aureus, which is methicillin-susceptible Staphylococcus aureus. 4. Fever, possibly right lower pneumonia, possibly gram-negative. 5. Abdominal pain, possible acute gastritis, improved. 6. Recurrent right pleural effusion with recurrent breast cancer. 7. Chronic obstructive pulmonary disease. 8. Hypertension. 9. Multiple medications. RECOMMENDATIONS: Recommend to continue current management and closely with Infectious Disease, Pulmonary, and Cardiothoracic Surgery, and antibiotics. Guarded prognosis. Further recommendations to follow. MMODL / IJN: [id number] /
[2023-11-29 11:27] LABS: Glucose,Whole Blood 247 mg/dL (70-110)
--- NOTE | 2023-11-29 12:28 | P.PN ---
Subjective HISTORY OF PRESENT ILLNESS: 11/27/2023 63-year-old with PMH of type 2 diabetes, hypertension, recurrent right-sided pleural effusion suspected to be from malignant breast metastatic cancer. Recurrent large right-sided pleural effusion. History of recurrent right-sided pleural effusion status post right Pleurx catheter placement, breast cancer in 1998 status post lumpectomy and right axillary node dissection as well as radiation therapy and tamoxifen with recurrence of breast cancer status post chemotherapy with last dose in May 2023, hypertension, hyperlipidemia, hypothyroid, diabetes mellitus type II, lifetime non-smoker but exposed to secondhand smoke from her , edible marijuana use Previously patient has had problems with sinus tachycardia. Previously we have not found any evidence of atrial fibrillation while patient was hospitalized and was monitored on telemetry. This time cardiology was consulted again because patient was noticed to be in tachycardic rhythm when she would exert with heart rate going into 150s. On detailed review of her telemetry it appears to be sinus tachycardia with no concerns of atrial fibrillation at this time. 11/28/2023 Patient examined this morning at the bedside. Patient denies any chest pain or pressure. She states her shortness of breath is at her baseline. She denies any dizziness or lightheadedness. Telemetry reveals sinus tachycardia with heart rate around [id number]. Vital signs are stable. She is hoping to be discharged home today. 11/29/2023 Patient examined this morning the bedside. Patient denies chest pain or pressure. She denies shortness of breath. Vital signs are stable. Telemetry reveals sinus mechanism with heart rate in the low 100s. PHYSICAL EXAM: VITAL SIGNS: Reviewed. GENERAL: Well-developed in no acute distress. NECK: Supple. No JVD or thyromegaly LUNGS: Respirations even and unlabored. Lungs essentially clear to auscultation bilaterally. HEART: Regular rate and rhythm. S1 and S2 heard. EXTREMITIES: Normal range of motion. No clubbing or cyanosis. Peripheral pulses intact. No lower extremity edema ASSESSMENT: Sinus tachycardia, likely physiological Loculated right-sided pleural effusion Acute on chronic shortness of breath Invasive ductal carcinoma of the breast Hypertension Hyperlipidemia Diabetes PLAN: Continue current cardiac medications Patient is stable for discharge home today from a cardiac standpoint She is to follow-up postdischarge with Dr. Higginbotham We will sign off. Please reconsult if needed. Nurse practitioner note has been reviewed by physician. Signing provider agrees with the documented findings, assessment, and plan of care documented by [employer] [employer]GER as a scribe. Objective - Vital Signs Vital signs: Vital Signs Temp 97.8 F 11/29/23 12:00 Pulse 114 H 11/29/23 12:00 Resp 17 11/29/23 12:00 BP 105/56 11/29/23 12:00 Pulse Ox 95 11/29/23 12:00 FiO2 Intake & Output 11/28/23 11/29/23 11/29/23 18:59 06:59 18:59 Intake Total 768 0 10 Balance 768 0 10 Intake: IV 10 10 Invasive Line 3 10 10 Intake, IV Titration 100 Amount Piperacillin-Tazobactam 3 100 .375 gm In Sodium Chloride 0.9% 100 ml @ 25 mls/hr IVPB Q8HR [facility] Rx# :[id number] Oral 658 0 Other: Voiding Method Toilet Toilet Toilet # Voids 2 1 - Labs CBC & Chem 7: 11/27/23 08:31 11/27/23 08:31 Labs: Abnormal Lab Results - Last 24 Hours (Table) 11/28/23 11/28/23 11/29/23 Range/Units 16:45 20:08 05:52 POC Glucose (mg/dL) 134 H 166 H 116 H (70-110) mg/dL 11/29/23 Range/Units 11:25 POC Glucose (mg/dL) 247 H (70-110) mg/dL Microbiology - Last 24 Hours (Table) 11/26/23 10:08 Blood Culture - Preliminary Blood 11/24/23 10:30 Anaerobic Culture - Final Pleural Fluid
--- NOTE | 2023-11-29 12:34 | P.PN ---
Subjective Progress Note Date: 11/29/23 Principal diagnosis: Pleural effusion. I saw this patient in the emergency department for shortness of breath. The patient is known to have a loculated right-sided pleural effusion and the patient has undergone a Pleurx catheter insertion and the catheter was inserted by thoracic surgery on 11/08/2023. The patient was getting good output from the Pleurx catheter and output had dropped and the last drainage was around 4 days ago and output had dropped down to 300 cc. She came in for shortness of breath. I attempted to drain the pleural fluid in the emergency department through the Pleurx catheter and there was no output. Based on that, I made recommendations to obtain a CAT scan of the chest. The chest x-ray was reviewed and the patient has a loculated right-sided pleural effusion and Pleurx catheter is directed towards the lung apex. Note that the patient has recurrent right-sided pleural effusion that was thought to be malignant although this has not been proven. She has history of metastatic breast cancer. I initially drained this patient on 10/27/2019 for a total of 2.2 L of pleural fluid was aspirated from the right lung and this was exudative with an elevated LDH and the fluid cytology was negative. Subsequently, the patient Pleurx catheter. The pleural fluid was analyzed and was again negative for malignancy.. Nevertheless, the patient is known to have w metastatic disease. The patient is known to have hormone positive HER2/sarah right-sided breast cancer and she has undergone previous lumpectomy and axillary node dissection back in 1998 followed by radiation therapy and tamoxifen. She prese was subsequently found to have invasive ductal carcinoma of the right breast biopsy showing grade 3 invasive ductal carcinoma and diagnosed with established by a punch biopsy of the skin. PET scan that was done on 12/12/2022 showed an abnormal doubling activity in the breast corresponding to the cancer. She is also known to have diabetes mellitus type 2, hyperlipidemia and hypothyroidism. At this point in time, the patient is on room air oxygen. No fever. No chills. No cough or sputum production. Blood work is essentially within normal limits. proBNP level is not elevated. The patient is maintained on Lantus insulin on outpatient basis in addition to Ozempic. She is also on metformin. The patient is seen today November 21, 2023 in follow-up on the regular medical floor. She is currently sitting up in bed. Awake and alert in no acute distress. She is maintaining good O2 saturations in the 90s on room air. She has been afebrile. Hemodynamically stable. Denies any worsening shortness of breath, cough or congestion. CT scan of the chest revealed a stable right-sided large pleural effusion and pleural nodularity. Drainage catheter terminating in the right lung apex. Mediastinal adenopathy. Small pericardial effusion. Healing right rib fractures. Glucose 169. The patient is seen today November 22, 2023 in follow-up on the regular medical floor. She is awake and alert in no acute distress. Maintaining O2 saturations in the 90s on room air. Glucose 162. She did receive alteplase/dornase injection through the Pleurx catheter today and had over 1 L drained to the Pleur-evac which is connected to continuous low wall suction -20 cm of water. Follow-up chest x-ray for tomorrow. The patient is seen today November 23, 2023 in follow-up on the regular medical floor. She is currently sitting up in bed. Awake and alert in no acute distress. Breathing easier today compared to yesterday. She did have appro ximately 2 L of fluid out of her Pleurx catheter following the alteplase/dornase infusion. Today's chest x-ray still shows significant effusion and loculation. Plan is for additional alteplase/dornase infusion per CT services again today. Follow-up chest x-ray tomorrow. Glucose 191. Patient was reevaluated today on 11/24/2023, patient is doing well, patient had lytic instilled into her right Pleurx catheter yesterday and 1400 cc of fluid was evacuated. Today she is feeling a bit better, breathing easier, remains on few liters nasal cannula, does not seem to be in any distress. Cultures on the fluid are pending, strongly doubt infection but nonetheless the patient is on Zosyn empirically. Her fluid has been malignant. WBC count today is 9.4 hemoglobin is 9 basic metabolic profile is normal renal profile is normal Reevaluate today on 11/25/2023, patient is doing well, continues to do well, patient had another lytic therapy instilled to her right Pleurx catheter today. Patient is doing well, feeling better, breathing easier WBC count is 9.8 hemoglobin 7.3 basic metabolic profile is normal, blood cultures came back positive for coagulase-negative staph,/contamination, pleural effusion fluid is negative for infection Reevaluate today on 11/26/23, patient continues to do well, continues to have lytic treatment, her chest x-ray is showing definite improvement in her right-sided pleural effusion which was loculated. Patient had her fourth dose of lytic treatment instilled in the right Pleurx catheter yesterday, continues to drain in the Pleur-evac. CBC today is normal basic metabolic profile is normal potassium is low at 3.3, Patient did receive a unit of packed RBCs for low hemoglobin yesterday Reevaluate today on 11/27/2023, patient is doing well, no lytic instillation was done yesterday, no output from her Pleurx catheter today, her pleural effusion came back positive for Proteus vulgaris, beta-hemolytic strep group C, and presumptive Staph aureus, patient is receiving Zosyn, now that the cultures are showing possible MRSA, may have to broaden the spectrum of antibiotics coverage, and that being addressed by infectious disease on the case, and now looks like we are dealing with definite empyema picture probably in the right pleural space considering the findings, may have to consider placing that Pleurx catheter back on suction and connected to Pleur-evac for drainage. Patient is afebrile, she is on room air, O2 sats is 96% Progress note dated November 28, 2023. The patient was seen today in room 359. Currently, she is on room air. She has a right Pleurx catheter in place. Cultures revealed evidence of Proteus vulgaris, group C streptococci, and Staph aureus. The patient is currently on Zosyn. She seems to be resting relatively comfortably. No new labs today. Her glucose today is 180. She was tested for C. difficile, and it was negative. A chest CT, revealed evidence of loculated empyema of the right pleural space, which are smaller in size. Jadiel note dated November 29, 2023. The patient is seen today in room 359. Currently, the patient is on room air. The patient is receiving Rocephin. She is not receiving any IV fluids. Cli nically, she looks stable. Cultures reveal evidence of Proteus vulgaris, group C streptococci, and Staphylococcus aureus. She tested negative for C. difficile colitis. Current labs include a glucose of 247. No chest x-ray today as yet. Objective - Vital Signs Vital signs: Vital Signs Temp 97.8 F 11/29/23 12:00 Pulse 114 H 11/29/23 12:00 Resp 17 11/29/23 12:00 BP 105/56 11/29/23 12:00 Pulse Ox 95 11/29/23 12:00 FiO2 Intake & Output 11/28/23 11/29/23 11/29/23 18:59 06:59 18:59 Intake Total 768 0 10 Balance 768 0 10 Intake: IV 10 10 Invasive Line 3 10 10 Intake, IV Titration 100 Amount Piperacillin-Tazobactam 3 100 .375 gm In Sodium Chloride 0.9% 100 ml @ 25 mls/hr IVPB Q8HR [facility] Rx# :[id number] Oral 658 0 Other: Voiding Method Toilet Toilet Toilet # Voids 2 1 - Exam No acute distress, oriented 3. No respiratory distress. Currently on room a ir. HEENT examination is grossly unremarkable. Mucous membranes are moist. No oral lesions. Neck supple. Full range of motion. No adenopathy thyromegaly or neck vein distention. Cardiovascular examination reveals regular rhythm rate. S1-S2 normal. No S3 or S4. No discernible murmur noted. Heart rate 82 bpm. Heart sounds are distant. Lungs reveal diminished breath sounds on the right. Left breath sounds are relatively clear. Minimal scattered rhonchi. Room air saturation 97%. Abdomen soft bowel sounds are heard. No masses or tenderness. Extremities are intact. No cyanosis clubbing or edema. Skin is without rash or lesion. Neurologic examination is brief but nonfocal. - Labs CBC & Chem 7: 11/27/23 08:31 11/27/23 08:31 Labs: Abnormal Lab Results - Last 24 Hours (Table) 11/28/23 11/28/23 11/29/23 Range/Units 16:45 20:08 05:52 POC Glucose (mg/dL) 134 H 166 H 116 H (70-110) mg/dL 11/29/23 Range/Units 11:25 POC Glucose (mg/dL) 247 H (70-110) mg/dL Microbiology - Last 24 Hours (Table) 11/26/23 10:08 Blood Culture - Preliminary Blood 11/24/23 10:30 Anaerobic Culture - Final Pleural Fluid Assessment and Plan Assessment: Loculated right-sided pleural effusion, S/P Pleurx catheter placement. Pleural fluid positive for Proteus vulgaris, group C streptococci, and Staphylococcus aureus. Acute on chronic shortness of breath, secondary to right-sided effusion. History of invasive ductal carcinoma of the breast. Type 2 diabetes mellitus. Benign essential hypertension. History of hypothyroidism. Hyperlipidemia. Right-sided empyema. Plan: Plan dated November 28, 2023. On today's CT scan, the loculated effusion on the right, appears to be smaller. The patient continues on room air. She also continues on Zosyn, for her infection. Labs, x-rays, and medications are reviewed. Clinically, the patient is stable. She is not manifesting any signs or symptoms of respiratory difficulty. There is no conversational dyspnea, or use of accessory muscles. We will continue to follow, and make recommendations along the way. Plan dated November 29, 2023. The patient continues to show gradual improvement. She is on room air. Patient is not receiving any IV fluids. The patient is not having any pain. She continues on Rocephin. Labs, x-rays, medications are reviewed. We will continue to follow make recommendations along the way. Prognosis is guarded. Time with Patient: Less than 30
--- NOTE | 2023-11-29 16:19 | P.PN ---
Subjective Progress Note Date: 11/29/23 Principal diagnosis: Reason for follow-up is fever possible empyema Patient is a 63-year-old female past medical history diabetes mellitus reflux hypertension hyperlipidemia history of right breast cancer patient also have a history of right-sided malignant effusion for the patient did have a previous thoracocentesis done and recently did have a Pleurx catheter placement, patient was in the hospital with increasing shortness of breath right-sided chest pain and did have a fever prompting this consultation. On today's evaluation that is 11/29/2023, Patient is afebrile patient is currently on room air and denies having any shortness of breath, the patient denies any chest pain or cough, the patient denies any nausea vomiting did not have any abdominal pain and no diarrhea, patient feeling better wants to go home. No new labs has been obtained today Objective - Vital Signs Vital signs: Vital Signs Temp 99.1 F 11/29/23 15:58 Pulse 109 H 11/29/23 15:58 Resp 17 11/29/23 15:58 BP 103/57 11/29/23 15:58 Pulse Ox 94 L 11/29/23 15:58 FiO2 Intake & Output 11/28/23 11/29/23 11/29/23 18:59 06:59 18:59 Intake Total 768 0 138 Balance 768 0 138 Intake: IV 10 20 Invasive Line 3 10 10 Invasive Line 4 10 Intake, IV Titration 100 Amount Piperacillin-Tazobactam 3 100 .375 gm In Sodium Chloride 0.9% 100 ml @ 25 mls/hr IVPB Q8HR [facility] Rx# :[id number] Oral 658 0 118 Other: Voiding Method Toilet Toilet Toilet # Voids 2 1 - Exam GENERAL DESCRIPTION: An elderly female lying in bed in no distress RESPIRATORY SYSTEM: Unlabored breathing , decreased breath sounds at bases HEART: S1 S2 regular rate and rhythm , ABDOMEN: Soft , no tenderness EXTREMITIES: No edema feet - Labs CBC & Chem 7: 11/27/23 08:31 11/27/23 08:31 Labs: Abnormal Lab Results - Last 24 Hours (Table) 11/28/23 11/28/23 11/29/23 Range/Units 16:45 20:08 05:52 POC Glucose (mg/dL) 134 H 166 H 116 H (70-110) mg/dL 11/29/23 Range/Units 11:25 POC Glucose (mg/dL) 247 H (70-110) mg/dL Microbiology - Last 24 Hours (Table) 11/26/23 10:08 Blood Culture - Preliminary Blood 11/24/23 10:30 Anaerobic Culture - Final Pleural Fluid Assessment and Plan (1) Fever Current Visit: Yes Status: Acute Code(s): R50.9 - FEVER, UNSPECIFIED SNOMED Code(s): 272664100 (2) Positive blood culture Current Visit: Yes Status: Acute Code(s): R78.81 - BACTEREMIA SNOMED Code(s): 836489552 Plan: 1patient with a fever and leukocytosis in this patient who did have a malignant right-sided effusion for the patient did have Pleurx catheter placement admitted to the hospital with right-sided chest pain and decreased output from her Pleurx catheter s/p alteplase instillation, with the patient developing fever concern for possible pulmonary source 2blood culture has been obtained which is growing coagulase-negative staph likely skin contamination no need for vancomycin, pleural fluid culture growing Proteus strep and Staph aureus 3patient did have resolution of her diarrhea use Questran as needed 4patient to get a midline and 2-week course of Rocephin 2 g daily on discharge discussed with the admitting team Dictation was produced using [employer] dictation software. please excuse any grammatical, word or spelling errors. Time with Patient: Less than 30
[2023-11-29 16:27] LABS: Glucose,Whole Blood 169 mg/dL (70-110)
--- NOTE | 2023-11-29 18:25 | P.DS ---
Providers Date of admission: 11/20/23 14:30 Attending physician: Benoit Caicedo Consults: 11/20/23 14:29 Consult Physician Routine Consulting Provider: Carrol Johnson Consult Reason/Comments: Pleural effusion Do you want consulting provider notified?: Yes 11/21/23 07:36 Consult Physician Routine Consulting Provider: Zi Anthony Consult Reason/Comments: Occluded Pleurx catheter Do you want consulting provider notified?: Already Contacted 11/23/23 13:38 Consult Physician Urgent Consulting Provider: Malgorzata Baez Consult Reason/Comments: recent pleurx, effusion, pna? febrile last night, hypotensive Do you want consulting provider notified?: Yes 11/24/23 13:29 Consult Physician Routine Consulting Provider: Malgorzata Baez Consult Reason/Comments: fever, pneumonia?? Do you want consulting provider notified?: Yes Primary care physician: Benoit Caicedo Hospital Course: Patient remains on the stepdown unit. Pleurex catheter remains in place, and was capped on the . Chest xray yesterday continues to demonstrate large right sided pleural effusion although slightly improved. ID recommending to discharge with IV rocephin daily for 2 weeks to complete course of antibiotic therapy for the positive pleural fluid culture. Patient had midline placed for antibiotic outpatient however has since clotted off and patient will need to stay one more night for PICC line placement. Patient is currently on room air no acute complaints was hoping to be discharged today. Review of Systems Constitutional: Denied any fatigue denied any fever. Cardio vascular: denied any chest pain, palpitations Gastrointestinal: denied any nausea, vomiting, diarrhea Pulmonary: Denied any shortness of breath cough Neurologic denied any new focal deficits All inpatient medications were reviewed and appropriate changes in these medications as dictated in the interval history and assessment and plan. PHYSICAL EXAMINATION: GENERAL: The patient is alert and oriented x3, not in any acute distress. Well developed, well nourished. HEENT: Pupils are round and equally reacting to light. EOMI. No scleral icterus. No conjunctival pallor. Normocephalic, atraumatic. No pharyngeal erythema. No thyromegaly. CARDIOVASCULAR: S1 and S2 present. No murmurs, rubs, or gallops. PULMONARY: Chest is clear to auscultation, no wheezing or crackles. Decreased lung sounds right posterior base. ABDOMEN: Soft, nontender, nondistended, normoactive bowel sounds. No palpable organomegaly. MUSCULOSKELETAL: No joint swelling or deformity. EXTREMITIES: No cyanosis, clubbing, or pedal edema. NEUROLOGICAL: Gross neurological examination did not reveal any focal deficits. SKIN: No rashes. Assessment and Plan -Recurrent large right sided loculated pleural effusion with lytic instillation this admission. Pleurex has since been capped. Pleural fluid culture growing Proteus strep and Staph aureus patient remains on IV ceftriaxone with plans for 2 weeks of outpatient antibiotics on discharge. -Hx of right sided breast cancer with suspected malignant pleural effusion -Hypertension -Hyperlipidemia -Diabetes Mellitus type 2 continue with accuchecks ACHS and sliding scale insulin; metformin and lantus. -Hypothyroidism continues on levothyroxine -Sinus tachycardia resolved -Gastroesophageal reflux disease GI prophylaxis DVT prophylaxis Full Code Plan for PICC line placement tomorrow and discharge home. Midline notfunctioning and will need line placement prior to discharge. The impression and plan of care has been dictated by Tanja Stringer, Nurse Practitioner as directed. Dr. Chang MD I have performed a history and physical examination and medical decision making of this patient, discussed the same with the dictator, and agree with the dictators assessment and plan as written, documented as a scribe. Based on total visit time, I have performed more than 50% of this visit. Patient Condition at Discharge: Stable Plan - Discharge Summary Discharge Rx Participant: Yes New Discharge Prescriptions: Continue Levothyroxine Sodium [Synthroid] 50 mcg PO DAILY Semaglutide [Ozempic] 1 mg SQ CROW Insulin Glargine,Hum.rec.anlog [Lantus Solostar Pen] 10 units SQ HS Magnesium Chloride [Mag64] 64 mg PO BID-W/MEALS Cholecalciferol (Vitamin D3) [Vitamin D3 (50 Mcg = 2000 Iu)] 50 mcg PO W/BRKFST Pravastatin Sodium [Pravachol] 40 mg PO W/SUPPER metFORMIN HCL 500 mg PO W/BRKFST Multivit-Min/Iron/Folic/Lutein [Centrum Silver Women Tablet] 1 tab PO W/BRKFST Acetaminophen [Tylenol Extra Strength] 1,000 mg PO Q6H PRN PRN Reason: Fever And/ Or Pain metFORMIN HCL 1,000 mg PO W/SUPPER Discharge Medication List Levothyroxine Sodium [Synthroid] 50 mcg PO DAILY 11/11/22 [History] Pravastatin Sodium [Pravachol] 40 mg PO W/SUPPER 11/11/22 [History] Semaglutide [Ozempic] 1 mg SQ CROW 11/11/22 [History] metFORMIN HCL 500 mg PO W/BRKFST 11/11/22 [History] Multivit-Min/Iron/Folic/Lutein [Centrum Silver Women Tablet] 1 tab PO W/BRKFST 11/25/22 [History] Acetaminophen [Tylenol Extra Strength] 1,000 mg PO Q6H PRN 10/27/23 [History] Cholecalciferol (Vitamin D3) [Vitamin D3 (50 Mcg = 2000 Iu)] 50 mcg PO W/BRKFST 10/27/23 [History] Insulin Glargine,Hum.rec.anlog [Lantus Solostar Pen] 10 units SQ HS 10/27/23 [History] Magnesium Chloride [Mag64] 64 mg PO BID-W/MEALS 10/27/23 [History] metFORMIN HCL 1,000 mg PO W/SUPPER 10/27/23 [History] Follow up Appointment(s)/Referral(s): Benoit Caicedo MD [Primary Care Provider] - 12/01/23 2:00 pm [facility], [NON-STAFF] - [facility], [REFERRING] - Malgorzata Baez MD [STAFF PHYSICIAN] - 12/12/23 2:45 pm Carrol Johnson MD [STAFF PHYSICIAN] - 12/07/23 10:15 am Ambulatory/Diagnostic Orders: Basic Metabolic Panel [LAB.AMB] Location: None Selected C Reactive Protein [LAB.AMB] Location: None Selected Erythrocyte Sedimentation Rate [LAB.AMB] Location: None Selected Complete Blood Count w/diff [LAB.AMB] Time Frame: 1 Week, Location: None Selected Patient Instructions/Handouts: Pleural Effusion (IP) Activity/Diet/Wound Care/Special Instructions: [facility] will deliver antibiotics and supplies to your home tonight (11/29/23) between 6pm and 8pm [facility] nurse will call you to set up a visit tomorrow Pleurx discharge instructions: 1. Home Care is ordered, they will obtain new bottles. 2. May shower after 24 hours, no tub baths/hot tubs. 3. Do not drain more than 1 liter or 1000 mL in 24 hours. 4. New drainage bottle needed with each drainage. 5. Drainage frequency dictated by patient symptoms, may be every day, every other day, weekly, or however often the patient is symptomatic. 6. Please notify [employer] or office if temperature >101F, excessive pain at insertion site, drainage consistency changes to cloudy or smells bad, catheter falls out, or anything else that concerns you. 7. Contact surgery office with weekly drainage amounts. May fax the amounts. 8. Once drainage is less than 50 mL three times in a row, notify the surgery office for possible removal. Surgery office: , fax
[2023-11-29 20:05] LABS: Glucose,Whole Blood 175 mg/dL (70-110)
[2023-11-30 06:08] LABS: Glucose,Whole Blood 125 mg/dL (70-110)
[2023-11-30 09:15] VITALS: PULSE 104
[2023-11-30 10:42] LABS: African American GFR (CKD) >90 (>60 ml/min/1.73 sqM); Anion Gap 4 mmol/L; Blood Urea Nitrogen 11 mg/dL (7-17); Calcium 7.2 mg/dL (8.4-10.2); Carbon Dioxide 23 mmol/L (22-30); Chloride 107 mmol/L (98-107); Glucose 208 mg/dL (74-99); Non-African American GFR(CKD) >90 (>60 ml/min/1.73 sqM); Potassium 4.3 mmol/L (3.5-5.1); Sodium 134 mmol/L (137-145)
--- NOTE | 2023-11-30 11:23 | P.PN ---
Subjective Progress Note Date: 11/30/23 Principal diagnosis: Pleural effusion. I saw this patient in the emergency department for shortness of breath. The patient is known to have a loculated right-sided pleural effusion and the patient has undergone a Pleurx catheter insertion and the catheter was inserted by thoracic surgery on 11/08/2023. The patient was getting good output from the Pleurx catheter and output had dropped and the last drainage was around 4 days ago and output had dropped down to 300 cc. She came in for shortness of breath. I attempted to drain the pleural fluid in the emergency department through the Pleurx catheter and there was no output. Based on that, I made recommendations to obtain a CAT scan of the chest. The chest x-ray was reviewed and the patient has a loculated right-sided pleural effusion and Pleurx catheter is directed towards the lung apex. Note that the patient has recurrent right-sided pleural effusion that was thought to be malignant although this has not been proven. She has history of metastatic breast cancer. I initially drained this patient on 10/27/2019 for a total of 2.2 L of pleural fluid was aspirated from the right lung and this was exudative with an elevated LDH and the fluid cytology was negative. Subsequently, the patient Pleurx catheter. The pleural fluid was analyzed and was again negative for malignancy.. Nevertheless, the patient is known to have w metastatic disease. The patient is known to have hormone positive HER2/sarah right-sided breast cancer and she has undergone previous lumpectomy and axillary node dissection back in 1998 followed by radiation therapy and tamoxifen. She prese was subsequently found to have invasive ductal carcinoma of the right breast biopsy showing grade 3 invasive ductal carcinoma and diagnosed with established by a punch biopsy of the skin. PET scan that was done on 12/12/2022 showed an abnormal doubling activity in the breast corresponding to the cancer. She is also known to have diabetes mellitus type 2, hyperlipidemia and hypothyroidism. At this point in time, the patient is on room air oxygen. No fever. No chills. No cough or sputum production. Blood work is essentially within normal limits. proBNP level is not elevated. The patient is maintained on Lantus insulin on outpatient basis in addition to Ozempic. She is also on metformin. The patient is seen today November 21, 2023 in follow-up on the regular medical floor. She is currently sitting up in bed. Awake and alert in no acute distress. She is maintaining good O2 saturations in the 90s on room air. She has been afebrile. Hemodynamically stable. Denies any worsening shortness of breath, cough or congestion. CT scan of the chest revealed a stable right-sided large pleural effusion and pleural nodularity. Drainage catheter terminating in the right lung apex. Mediastinal adenopathy. Small pericardial effusion. Healing right rib fractures. Glucose 169. The patient is seen today November 22, 2023 in follow-up on the regular medical floor. She is awake and alert in no acute distress. Maintaining O2 saturations in the 90s on room air. Glucose 162. She did receive alteplase/dornase injection through the Pleurx catheter today and had over 1 L drained to the Pleur-evac which is connected to continuous low wall suction -20 cm of water. Follow-up chest x-ray for tomorrow. The patient is seen today November 23, 2023 in follow-up on the regular medical floor. She is currently sitting up in bed. Awake and alert in no acute distress. Breathing easier today compared to yesterday. She did have appro ximately 2 L of fluid out of her Pleurx catheter following the alteplase/dornase infusion. Today's chest x-ray still shows significant effusion and loculation. Plan is for additional alteplase/dornase infusion per CT services again today. Follow-up chest x-ray tomorrow. Glucose 191. Patient was reevaluated today on 11/24/2023, patient is doing well, patient had lytic instilled into her right Pleurx catheter yesterday and 1400 cc of fluid was evacuated. Today she is feeling a bit better, breathing easier, remains on few liters nasal cannula, does not seem to be in any distress. Cultures on the fluid are pending, strongly doubt infection but nonetheless the patient is on Zosyn empirically. Her fluid has been malignant. WBC count today is 9.4 hemoglobin is 9 basic metabolic profile is normal renal profile is normal Reevaluate today on 11/25/2023, patient is doing well, continues to do well, patient had another lytic therapy instilled to her right Pleurx catheter today. Patient is doing well, feeling better, breathing easier WBC count is 9.8 hemoglobin 7.3 basic metabolic profile is normal, blood cultures came back positive for coagulase-negative staph,/contamination, pleural effusion fluid is negative for infection Reevaluate today on 11/26/23, patient continues to do well, continues to have lytic treatment, her chest x-ray is showing definite improvement in her right-sided pleural effusion which was loculated. Patient had her fourth dose of lytic treatment instilled in the right Pleurx catheter yesterday, continues to drain in the Pleur-evac. CBC today is normal basic metabolic profile is normal potassium is low at 3.3, Patient did receive a unit of packed RBCs for low hemoglobin yesterday Reevaluate today on 11/27/2023, patient is doing well, no lytic instillation was done yesterday, no output from her Pleurx catheter today, her pleural effusion came back positive for Proteus vulgaris, beta-hemolytic strep group C, and presumptive Staph aureus, patient is receiving Zosyn, now that the cultures are showing possible MRSA, may have to broaden the spectrum of antibiotics coverage, and that being addressed by infectious disease on the case, and now looks like we are dealing with definite empyema picture probably in the right pleural space considering the findings, may have to consider placing that Pleurx catheter back on suction and connected to Pleur-evac for drainage. Patient is afebrile, she is on room air, O2 sats is 96% Progress note dated November 28, 2023. The patient was seen today in room 359. Currently, she is on room air. She has a right Pleurx catheter in place. Cultures revealed evidence of Proteus vulgaris, group C streptococci, and Staph aureus. The patient is currently on Zosyn. She seems to be resting relatively comfortably. No new labs today. Her glucose today is 180. She was tested for C. difficile, and it was negative. A chest CT, revealed evidence of loculated empyema of the right pleural space, which are smaller in size. Progress note dated November 29, 2023. The patient is seen today in room 359. Currently, the patient is on room air. The patient is receiving Rocephin. She is not receiving any IV fluids. Clinically, she looks stable. Cultures reveal evidence of Proteus vulgaris, group C streptococci, and Staphylococcus aureus. She tested negative for C. difficile colitis. Current labs include a glucose of 247. No chest x-ray today as yet. Progress note dated November 30, 2023. The patient is seen today in room 359. Currently, the patient is on room air. The patient is not receiving any IV fluids. The patient is hoping to be discharged home soon. She denies any shortness of breath, cough, wheezing, chest tightness, or phlegm production. She also denies any chest pain or pressure. Labs today include a sodium 134, potassium 4.3, chlorides 107, CO2 23, anion gap 4, BUN 11, creatinine 0.6. Glucose is 208. The patient's calcium is 7.2. Lower fluids, or positive for Proteus vulgaris, group C streptococci, and Staphylococcus aureus. Objective - Vital Signs Vital signs: Vital Signs Temp 98.5 F 11/30/23 07:39 Pulse 104 H 11/30/23 08:48 Resp 19 11/30/23 07:39 BP 98/58 11/30/23 07:39 Pulse Ox 96 11/30/23 07:39 FiO2 Intake & Output 11/29/23 11/30/23 11/30/23 18:59 06:59 18:59 Intake Total 256 240 10 Balance 256 240 10 Intake: IV 20 10 Invasive Line 3 10 10 Invasive Line 4 10 Oral 236 240 Other: Voiding Method Toilet Toilet Toilet # Voids 2 1 # Bowel Movements 1 1 - Exam No acute distress, oriented 3. No respiratory distress. Currently on room air. HEENT examination is grossly unremarkable. Mucous membranes are moist. No oral lesions. Neck supple. Full range of motion. No adenopathy thyromegaly or neck vein distention. Cardiovascular examination reveals regular rhythm rate. S1-S2 normal. No S3 or S4. No discernible murmur noted. Heart rate 79 bpm. Heart sounds are distant. Lungs reveal diminished breath sounds on the right. Left breath sounds are rel atively clear. Minimal scattered rhonchi. Room air saturation 96 %. Abdomen soft bowel sounds are heard. No masses or tenderness. Extremities are intact. No cyanosis clubbing or edema. Skin is without rash or lesion. Neurologic examination is brief but nonfocal. - Labs CBC & Chem 7: 11/27/23 08:31 11/30/23 08:49 Labs: Abnormal Lab Results - Last 24 Hours (Table) 11/29/23 11/29/23 11/29/23 Range/Units 11:25 16:25 20:04 Sodium (137-145) mmol/L Glucose (74-99) mg/dL POC Glucose (mg/dL) 247 H 169 H 175 H (70-110) mg/dL Calcium (8.4-10.2) mg/dL 11/30/23 11/30/23 Range/Units 06:03 08:49 Sodium 134 L (137-145) mmol/L Glucose 208 H (74-99) mg/dL POC Glucose (mg/dL) 125 H (70-110) mg/dL Calcium 7.2 L (8.4-10.2) mg/dL Microbiology - Last 24 Hours (Table) 11/26/23 10:08 Blood Culture - Preliminary Blood 11/24/23 09:45 Blood Culture - Final Blood Assessment and Plan Assessment: Loculated right-sided pleural effusion, S/P Pleurx catheter placement. Pleural fluid positive for Proteus vulgaris, group C streptococci, and Staphylococcus aureus. Acute on chronic shortness of breath, secondary to right-sided effusion. History of invasive ductal carcinoma of the breast. Type 2 diabetes mellitus. Benign essential hypertension. History of hypothyroidism. Hyperlipidemia. Right-sided empyema. Plan: Plan dated November 28, 2023. On today's CT scan, the loculated effusion on the right, appears to be smaller. The patient continues on room air. She also continues on Zosyn, for her infection. Labs, x-rays, and medications are reviewed. Clinically, the patient is stable. She is not manifesting any signs or symptoms of respiratory difficulty. There is no conversational dyspnea, or use of accessory muscles. We will continue to follow, and make recommendations along the way. Plan dated November 29, 2023. The patient continues to show gradual improvement. She is on room air. Patient is not receiving any IV fluids. The patient is not having any pain. She continues on Rocephin. Labs, x-rays, medications are reviewed. We will continue to follow make recommendations along the way. Prognosis is guarded. Plan dated November 30, 2023. The patient appears to be relatively stable. The patient is currently on room air. The patient is not receiving any IV fluids. Labs, x-rays, and medications are all reviewed. The patient is currently on Rocephin. Discharge medications as it relates to infectious diseases, will be determined by the infectious disease doctor. We will continue to follow as needed. Prognosis is guarded. Time with Patient: Less than 30
[2023-11-30 11:37] LABS: Glucose,Whole Blood 151 mg/dL (70-110)
[2023-11-30 11:56] VITALS: BP 97/57; RESP 26; TEMP 98.4
--- NOTE | 2023-11-30 17:37 | P.PN ---
Subjective Progress Note Date: 11/30/23 Principal diagnosis: Reason for follow-up is fever possible empyema Patient is a 63-year-old female past medical history diabetes mellitus reflux hypertension hyperlipidemia history of right breast cancer patient also have a history of right-sided malignant effusion for the patient did have a previous thoracocentesis done and recently did have a Pleurx catheter placement, patient was in the hospital with increasing shortness of breath right-sided chest pain and did have a fever prompting this consultation. On today's evaluation that is 11/30/2023, patient has been afebrile, patient is breathing comfortably and is currently on room air, patient denies having any significant cough no chest pain shortness of breath, patient denies nausea vomiting or diarrhea and no abdominal pain. Patient did have a creatinine 0.60 culture with Proteus strep and MSSA Objective - Vital Signs Vital signs: Vital Signs Temp 98.4 F 11/30/23 11:37 Pulse 104 H 11/30/23 11:37 Resp 26 H 11/30/23 11:37 BP 97/57 11/30/23 11:37 Pulse Ox 96 11/30/23 11:37 FiO2 Intake & Output 11/29/23 11/30/23 11/30/23 18:59 06:59 18:59 Intake Total 256 240 10 Balance 256 240 10 Intake: IV 20 10 Invasive Line 3 10 10 Invasive Line 4 10 Oral 236 240 Other: Voiding Method Toilet Toilet Toilet # Voids 2 1 # Bowel Movements 1 1 - Exam GENERAL DESCRIPTION: An elderly female lying in bed in no distress RESPIRATORY SYSTEM: Unlabored breathing , decreased breath sounds at bases HEART: S1 S2 regular rate and rhythm , ABDOMEN: Soft , no tenderness EXTREMITIES: No edema feet - Labs CBC & Chem 7: 11/27/23 08:31 11/30/23 08:49 Labs: Abnormal Lab Results - Last 24 Hours (Table) 11/29/23 11/29/23 11/30/23 Range/Units 16:25 20:04 06:03 Sodium (137-145) mmol/L Glucose (74-99) mg/dL POC Glucose (mg/dL) 169 H 175 H 125 H (70-110) mg/dL Calcium (8.4-10.2) mg/dL 11/30/23 11/30/23 Range/Units 08:49 11:36 Sodium 134 L (137-145) mmol/L Glucose 208 H (74-99) mg/dL POC Glucose (mg/dL) 151 H (70-110) mg/dL Calcium 7.2 L (8.4-10.2) mg/dL Microbiology - Last 24 Hours (Table) 11/26/23 10:08 Blood Culture - Preliminary Blood 11/24/23 09:45 Blood Culture - Final Blood Assessment and Plan (1) Fever Status: Acute Code(s): R50.9 - FEVER, UNSPECIFIED SNOMED Code(s): 825295207 (2) Positive blood culture Status: Acute Code(s): R78.81 - BACTEREMIA SNOMED Code(s): 266224118 Plan: 1patient with a fever and leukocytosis in this patient who did have a malignant right-sided effusion for the patient did have Pleurx catheter placement admitted to the hospital with right-sided chest pain and decreased output from her Pleurx catheter s/p alteplase instillation, with the patient developing fever concern for possible pulmonary source 2blood culture has been obtained which is growing coagulase-negative staph likely skin contamination no need for vancomycin, pleural fluid culture growing Proteus strep and Staph aureus 3patient did received midline and plan is for 2-week course of Rocephin 2 g felipe ly on discharge and close outpatient follow-up Dictation was produced using [employer] dictation software. please excuse any grammatical, word or spelling errors. Time with Patient: Less than 30
--- NOTE | 2023-12-02 08:44 | CDI ---
Documentation Clarification Form Date: 12/02/2023 08:35:47 AM From: Heidi Cabrera Admit Date: 11/20/2023 02:30:00 PM Patient Name: Nedra Trejo Visit Number: [id number] Discharge Date: 11/30/2023 02:07:00 PM ATTENTION: The Clinical Documentation Specialists (CDI) and [facility] Coding Staff appreciate your assistance in clarifying documentation. Please respond to the clarification below the line at the bottom and electronically sign. The CDI & [facility] Coding staff will review the response and follow-up if needed. Please note: Queries are made part of the Legal Health Record. If you have any questions, please contact the author of this message via ITS. Dr. Benoit Caicedo Conflicting documentation has been found in the medical record. As attending physician, please provide clarification. Per DCS and PN's 11/24 - 11/29 Positive blood cultures Bacteremia Per ID consult Sepsis is documented. History/Risk Factors: breast Cancer, malignant pleural effusion and empyema Proteus, Strep C and MSSA. Clinical Indicators: Positive blood cultures, elevated WBC's Treatment: IV Zosyn and Rocephin Please clarify which diagnosis is most appropriate: [ x ] Sepsis POA [ ] Bacteremia [ ] Sepsis not POA [ ] Other (please specify) [ ] Unable to determine MTDD
== END 2023-11-30 14:07 | disposition home or self-care (01) | DRG 919 ==
LOC: EC 10:37 → 6NMEDSUR 14:29 → OBSVTOIN 14:30 → 6NMEDSUR 15:39 → 3SCARD 11-23 15:11
PROVIDERS: ADMIT Family Medicine; ATTEND Family Medicine
PROC: 05HA33Z Insertion of Infusion Device into Left Brachial Vein, Percutaneous Approach (ICD-10-PCS; 2023-11-23)
PROC: 30233N1 Transfusion of Nonautologous Red Blood Cells into Peripheral Vein, Percutaneous Approach (ICD-10-PCS; principal; 2023-11-25)
PROC: 05HA33Z Insertion of Infusion Device into Left Brachial Vein, Percutaneous Approach (ICD-10-PCS; 2023-11-30 07:30)
DX: T85.9XXA Unspecified complication of internal prosthetic device, implant and graft, initial encounter (principal); A41.59 Other Gram-negative sepsis; J18.9 Pneumonia, unspecified organism; J86.9 Pyothorax without fistula; J91.0 Malignant pleural effusion; I31.39 Other pericardial effusion (noninflammatory); C50.911 Malignant neoplasm of unspecified site of right female breast; B96.4 Proteus (mirabilis) (morganii) as the cause of diseases classified elsewhere; B95.61 Methicillin susceptible Staphylococcus aureus infection as the cause of diseases classified elsewhere; B95.4 Other streptococcus as the cause of diseases classified elsewhere; P96.81 Exposure to (parental) (environmental) tobacco smoke in the perinatal period; Z77.22 Contact with and (suspected) exposure to environmental tobacco smoke (acute) (chronic); I95.9 Hypotension, unspecified; E03.9 Hypothyroidism, unspecified; E78.5 Hyperlipidemia, unspecified; E83.42 Hypomagnesemia; R59.0 Localized enlarged lymph nodes; I10 Essential (primary) hypertension; K21.9 Gastro-esophageal reflux disease without esophagitis; E11.9 Type 2 diabetes mellitus without complications; Z79.4 Long term (current) use of insulin; Z79.84 Long term (current) use of oral hypoglycemic drugs; Z17.0 Estrogen receptor positive status [ER+]; T82.868A Thrombosis due to vascular prosthetic devices, implants and grafts, initial encounter; I48.91 Unspecified atrial fibrillation; S22.41XD Multiple fractures of ribs, right side, subsequent encounter for fracture with routine healing; Z92.21 Personal history of antineoplastic chemotherapy; Z92.3 Personal history of irradiation; Z79.890 Hormone replacement therapy
CPT/HCPCS: 36410; 36415; 71045; 71046; 71250; 71260; 76937; 80048; 80053; 82533; 83036; 83735; 83880; 84145; 84484; 85025; 85610; 85730; 86140; 86850; 86900; 86901; 86920; 87040; 87070; 87075; 87077; 87186; 87205; 87324; 87535; 88108; 88305; 93005; 94640; 94760; 99285

== ENCOUNTER 2023-12-15 01:47 | Emergency (ER) | payer MEDICARE, OTHER ==
[2023-12-15 02:55] VITALS: TEMP 97.8
[2023-12-15 03:01] LABS: Basophils # (A) 0.1 k/uL (0-0.2); Basophils % (A) 1 %; Eosinophils # (A) 0.3 k/uL (0-0.7); Eosinophils % (A) 2 %; HCT 31.1 % (34.0-46.0); HGB 9.3 gm/dL (11.4-16.0); Hypochromasia Moderate; Lymphocytes # (A) 2.6 k/uL (1.0-4.8); Lymphocytes % (A) 23 %; MCH 28.2 pg (25.0-35.0); MCHC 29.9 g/dL (31.0-37.0); MCV 94.2 fL (80.0-100.0); Mean Platelet Volume 6.9; Monocytes # (A) 0.7 k/uL (0-1.0); Monocytes % (A) 6 %; Neutrophils # (A) 7.5 k/uL (1.3-7.7); Neutrophils % (A) 66 %; Platelet Count 707 k/uL (150-450); RDW 13.8 % (11.5-15.5); WBC 11.3 k/uL (3.8-10.6)
[2023-12-15 03:12] LABS: Prothrombin Time 10.7 sec (10.0-12.5)
--- NOTE | 2023-12-15 03:18 | XR ---
EXAM: XR Chest, 2 Views CLINICAL HISTORY: ITS.REASON XR Reason: difficulty breathing TECHNIQUE: Frontal and lateral views of the chest. COMPARISON: No relevant prior studies available. IMPRESSION: Right-sided pleural effusion with overlying opacity.
[2023-12-15 03:31] LABS: ALT 13 U/L (4-34); AST 28 U/L (14-36); African American GFR (CKD) >90 (>60 ml/min/1.73 sqM); Albumin 2.7 g/dL (3.5-5.0); Alkaline Phosphatase 103 U/L (38-126); Anion Gap 3 mmol/L; Blood Urea Nitrogen 14 mg/dL (7-17); Calcium 8.1 mg/dL (8.4-10.2); Carbon Dioxide 28 mmol/L (22-30); Chloride 105 mmol/L (98-107); Glucose 127 mg/dL (74-99); Magnesium 1.1 mg/dL (1.6-2.3); Non-African American GFR(CKD) 89 (>60 ml/min/1.73 sqM); Potassium 4.1 mmol/L (3.5-5.1); Sodium 136 mmol/L (137-145); Total Bilirubin 0.2 mg/dL (0.2-1.3); Total Protein 5.8 g/dL (6.3-8.2)
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
[2023-12-15] MEDS ORDERED: MORPHINE SULFATE 4 MG/ML SYRINGE IV PRN (05:42)
[2023-12-15] MEDS ORDERED: NALOXONE 0.4 MG/ML 1 ML VIAL IV PRN (05:42)
[2023-12-15] MEDS ORDERED: ONDANSETRON 4 MG/2 ML VIAL IVP PRN (05:42)
[2023-12-15] MEDS: IPRATROPIUM-ALBUTEROL 3 ML NEB INHALATION STA (06:06)
[2023-12-15] MEDS: SODIUM CHLORIDE 0.9% 1,000 ML IV SCH (06:08)
[2023-12-15] MEDS: MAGNESIUM SULFATE-D5W PMX 1 GM in DEXTROSE/WATER 1 100ML.BAG IVPB ONE (06:28)
[2023-12-15] MEDS: MAGNESIUM OXIDE 400 MG TAB PO STA ×2 (06:34)
[2023-12-15] MEDS: LORazepam 2 MG/ML INJ IV PRN (06:38)
[2023-12-15 06:57] VITALS: BP 105/63; PULSE 95; RESP 16
[2023-12-15] MEDS ORDERED: IPRATROPIUM-ALBUTEROL 3 ML NEB INHALATION SCH (08:00)
== END 2023-12-15 06:44 | disposition home or self-care (01) ==
LOC: EC 01:47 → UNDOADMOB 05:43 → 5NMEDONC 05:43 → UNDODISOB 06:40 → EC 06:44
DX: R06.02 Shortness of breath (principal); F41.9 Anxiety disorder, unspecified; R07.9 Chest pain, unspecified
CPT/HCPCS: 96374 ×2; 99285 ×2; 36415; 94640; 93005; 80053; 83605; 83735; 84484; 85025; 85610; 85730; 71046; J2060

== ENCOUNTER 2024-02-12 19:41 | Emergency (ER) | payer MEDICARE, OTHER ==
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
[2024-02-12 20:04] VITALS: RESP 18
[2024-02-12 20:12] LABS: Basophils # (A) 0.1 k/uL (0-0.2); Basophils % (A) 1 %; Eosinophils # (A) 0.2 k/uL (0-0.7); Eosinophils % (A) 2 %; HCT 33.4 % (34.0-46.0); HGB 10.5 gm/dL (11.4-16.0); Hypochromasia Slight; Lymphocytes # (A) 1.9 k/uL (1.0-4.8); Lymphocytes % (A) 20 %; MCH 28.5 pg (25.0-35.0); MCHC 31.6 g/dL (31.0-37.0); MCV 90.3 fL (80.0-100.0); Mean Platelet Volume 7.8; Monocytes # (A) 0.6 k/uL (0-1.0); Monocytes % (A) 6 %; Neutrophils # (A) 6.8 k/uL (1.3-7.7); Neutrophils % (A) 70 %; Platelet Count 373 k/uL (150-450); RBC 3.69 m/uL (3.80-5.40); WBC 9.7 k/uL (3.8-10.6)
[2024-02-12] MEDS: SODIUM CHLORIDE 0.9% 1,000 ML IV STA (20:14)
[2024-02-12 20:37] LABS: INR 0.9 (<1.2); Partial Thromboplastin Time 24.9 sec (22.0-30.0); Prothrombin Time 10.2 sec (10.0-12.5)
[2024-02-12 20:38] LABS: Alcohol <10 mg/dL; Magnesium 1.3 mg/dL (1.6-2.3); Phosphorus 4.2 mg/dL (2.5-4.5)
--- NOTE | 2024-02-12 20:43 | XR ---
EXAMINATION TYPE: XR chest 2V DATE OF EXAM: 02/12/2024 8:22 PM CLINICAL INDICATION:Female, 64 years old with history of altered mental status; [facility] COMPARISON: Chest radiographs from 12/15/2023 TECHNIQUE: XR chest 2V Frontal and lateral views of the chest. FINDINGS: Lungs/Pleura: Nodular pleural effusion with decreased aeration of the right lung. There is no evidenc e of left pleural effusion, focal consolidation, or pneumothorax. Pulmonary vascularity: Unremarkable. Heart/mediastinum: Cardiomediastinal silhouette is unremarkable. Musculoskeletal: No acute osseous pathology. IMPRESSION: Decreased aeration the right lung with enlarging right pleural effusion.
[2024-02-12 21:34] LABS: ALT 14 U/L (4-34); AST 40 U/L (14-36); African American GFR (CKD) 52 (>60 ml/min/1.73 sqM); Albumin 4.1 g/dL (3.5-5.0); Alkaline Phosphatase 63 U/L (38-126); Anion Gap 10 mmol/L; Blood Urea Nitrogen 39 mg/dL (7-17); Calcium 9.5 mg/dL (8.4-10.2); Carbon Dioxide 17 mmol/L (22-30); Chloride 112 mmol/L (98-107); Creatine Kinase 86 U/L (30-135); Glucose 151 mg/dL (74-99); Non-African American GFR(CKD) 45 (>60 ml/min/1.73 sqM); Potassium 4.3 mmol/L (3.5-5.1); Sodium 139 mmol/L (137-145); Total Bilirubin 0.4 mg/dL (0.2-1.3); Total Protein 6.7 g/dL (6.3-8.2)
[2024-02-12] MEDS: MAGNESIUM OXIDE 400 MG TAB PO STA ×2 (22:18)
[2024-02-12] MEDS: MAGNESIUM SULFATE-D5W PMX 1 GM in DEXTROSE/WATER 1 100ML.BAG IVPB ONE (22:19)
[2024-02-12 22:26] VITALS: TEMP 98.6
[2024-02-12 22:46] LABS: Appearance,Urine Clear (Clear); Bilirubin,Urine Negative (Negative); Blood,Urine Negative (Negative); Color,Urine Colorless; Glucose,Urine (UA) Negative (Negative); Ketones,Urine Negative (Negative); Leukocyte Esterase,Urine Negative (Negative); Nitrite,Urine Negative (Negative); PH, Urine 5.5 (5.0-8.0); Protein,Urine Trace (Negative); Specific Gravity,Urine 1.019 (1.001-1.035); Urobilinogen,Urine <2.0 mg/dL (<2.0)
--- NOTE | 2024-02-12 23:14 | CT ---
EXAM: CT Head Without Intravenous Contrast CLINICAL HISTORY: CT Reason: Neuro deficit, acute, stroke suspected TECHNIQUE: Axial computed tomography images of the head/brain without intravenous contrast. CTDI is 8.9 mGy and DLP is 275.4 mGy-cm. This CT exam was performed using one or more of the following dose reduction techniques: automated exposure control, adjustment of the mA and/or kV according to patient size, and/or use of iterative reconstruction technique. COMPARISON: No relevant prior studies available. FINDINGS: Brain: There are several cystic lesions in the brain measuring approximate 1.9 cm in the left cerebellum, 3.5 cm in the right temporal parietal region, and 2 cm in the right frontal lobe. Small focal areas of decreased density in the left upper lobe and left frontal lobe. No hemorrhage. Ventricles: Unremarkable. No ventriculomegaly. Bones/joints: Unremarkable. No acute fracture. Soft tissues: Unremarkable. Sinuses: Unremarkable as visualized. No acute sinusitis. Mastoid air cells: Unremarkable as visualized. No mastoid effusion. IMPRESSION: There are several cystic lesions in the brain measuring approximate 1.9 cm in the left cerebellum, 3.5 cm in the right temporal parietal region, and 2 cm in the right frontal lobe. Differential considerations include cerebral abscesses, acute neurocysticercosis, less likely metastatic neoplasm. Recommend MRI with contrast and diffusion-weighted imaging for further characterization. <MYCVCSECTION> Communications: 02/12/24 23:27 Call Doctor Regarding Above results, called Dr. Alvardao on 02/11 23:27 (-04:00)
--- NOTE | 2024-02-12 23:22 | CT ---
EXAM: CT Angiography Head With Intravenous Contrast CLINICAL HISTORY: CT Reason: Neuro deficit, acute, stroke suspected TECHNIQUE: Axial computed tomographic angiography images of the head with intravenous contrast. CTDI is 15 mGy and DLP is 339 mGy-cm. This CT exam was performed using one or more of the following dose reduction techniques: automated exposure control, adjustment of the mA and/or kV according to patient size, and/or use of iterative reconstruction technique. 3D and MIP reconstructed images were created and reviewed. COMPARISON: No relevant prior studies available. FINDINGS: Right internal carotid artery: Mild calcified plaque in the distal right internal carotid artery with no measurable stenosis. No aneurysm. Right anterior cerebral artery: Unremarkable. No occlusion or significant stenosis. No aneurysm. Right middle cerebral artery: Unremarkable. No occlusion or significant stenosis. No aneurysm. Right posterior cerebral artery: Unremarkable. No occlusion or significant stenosis. No aneurysm. Right vertebral artery: Unremarkable as visualized. Left internal carotid artery: Mild calcified plaque in the distal left internal carotid artery with no measurable stenosis. No aneurysm. Left anterior cerebral artery: Unremarkable. No occlusion or significant stenosis. No aneurysm. Left middle cerebral artery: Unremarkable. No occlusion or significant stenosis. No aneurysm. Left posterior cerebral artery: There is a normal anatomic variant of origin of the left posterior cerebral artery from the anterior circulation. No occlusion or significant stenosis. No aneurysm. Left vertebral artery: Unremarkable as visualized. Basilar artery: Unremarkable. No occlusion or significant stenosis. No aneurysm. Brain: Multiple cystic low density lesions throughout the brain. IMPRESSION: Multiple cystic low density lesions throughout the brain. Given the findings on the right upper lung, likely metastatic neoplasm. Unremarkable appearance of the arterial structures of the brain. No aneurysm, dissection, or large vessel occlusion is identified. EXAM: CT Angiography Neck With Intravenous Contrast CLINICAL HISTORY: CT Reason: Neuro deficit, acute, stroke suspected TECHNIQUE: Routine carotid CT angiography protocol was performed with intravenous contrast. NASCET criteria using the distal ICAs for comparison were used for evaluation of stenoses. CTDI is 15 mGy and DLP is 339 mGy-cm. This CT exam was performed using one or more of the following dose reduction techniques: automated exposure control, adjustment of the mA and/or kV according to patient size, and/or use of iterative reconstruction technique. 3D and MIP reconstructed images were created and reviewed. COMPARISON: None. FINDINGS: VASCULATURE: Right common carotid artery: Unremarkable. No occlusion or significant stenosis. No dissection. Right internal carotid artery: Mild calcified plaque in the proximal right internal carotid artery with less than 20% stenosis. No dissection. Right external carotid artery: Unremarkable. No occlusion. Right vertebral artery: Unremarkable. No occlusion or significant stenosis. No dissection. Left common carotid artery: Unremarkable. No occlusion or significant stenosis. No dissection. Left internal carotid artery: Unremarkable. Extracranial segment is patent with no occlusion or significant stenosis. No dissection. Left external carotid artery: Unremarkable. No occlusion. Left vertebral artery: The left vertebral artery is smaller than the right but patent. No focal stenosis or dissection. NECK: Bones/joints: Mild degenerative changes in the lower cervical spine. No acute fracture or subluxation is seen. Soft tissues: Unremarkable. Lung apices: Partial visualization of multiple lobular mass lesions along the periphery of the right mid to upper lung, suspicious for neoplasm. Infiltrate or edema throughout the visible right upper lung. 1 cm pulmonary nodule the left upper lobe. CAROTID STENOSIS REFERENCE USING NASCET CRITERIA: % ICA stenosis = (1 - narrowest ICA diameter/diameter of distal cervical ICA) x 100. Mild - <50% stenosis. Moderate - 50-69% stenosis. Severe - 70-94% stenosis. Near occlusion - 95-99% stenosis. Occluded - 100% stenosis. IMPRESSION: Partial visualization of multiple lobular mass lesions along the pleura of the right mid to upper hemithorax, suspicious for neoplasm. Trace amount of atherosclerotic calcification in the right carotid bifurcation. No significant stenosis or dissection.
[2024-02-12] MEDS: HYDROmorphone 0.5 MG/0.5 ML SYRINGE IVP STA (23:27)
[2024-02-12] MEDS: ONDANSETRON 4 MG/2 ML VIAL IVP STA (23:36)
[2024-02-12] MEDS: DEXAMETHASONE SOD PHOSPHATE 10 MG/ML 1 ML VIAL IVP STA (23:53)
[2024-02-13 00:11] VITALS: BP 130/87; PULSE 102
== END 2024-02-13 00:10 | disposition other institution (70) ==
LOC: EC 19:41
DX: C79.31 Secondary malignant neoplasm of brain (principal); R47.02 Dysphasia; R47.01 Aphasia
CPT/HCPCS: 36415; 93005; 80053; 82550; 83735; 84100; 84484; 85025; 85610; 85730; 81003; 71046; 70496; 70450; 70498; 99291; 96365; 96375 ×3; 96361; G0480; J1100; J2405; J3475; J1170; Q9967; 80320